=== PATIENT | female | born 1970 | race African-American/Black ===

== ENCOUNTER 2020-01-31 10:52 | Outpatient (CLI) | payer BC, SELFPAY ==
--- NOTE | 2020-01-31 10:55 | ECG_ITS ---
Measurements Intervals [place] Rate: 78 P: 38 UT: 186 QRS: 15 QRSD: 82 T: 6 QT: 358 QTc: 408 Interpretive Statements SINUS RHYTHM INFERIOR INFARCT, AGE INDETERMINATE BASELINE ARTIFACT- I, II, III, AVR, AVL, AVF ABNORMAL ECG Electronically Signed On 01-31-2020 11:37:59 CDT by Steven Dawson D.O.
[2020-01-31 11:45] LABS: Blood Urea Nitrogen 15 mg/dL (7-17); Calcium 9.4 mg/dL (8.4-10.2); Carbon Dioxide 26 mmol/L (22-30); Chloride 106 mmol/L (98-107); Estimated Glomerular Filt Rate > 60; Glucose 105 mg/dL (65-105); Potassium 3.3 mmol/L (3.4-5.0); Sodium 138 mmol/L (137-145)
== END 2020-01-31 10:53 | disposition home or self-care (01) ==
PROVIDERS: Anesthesiology; PCP Internal Medicine; Visit Provider Surgery Plastic and Reconstructive Surgery
DX: I10 Essential (primary) hypertension (principal); R94.31 Abnormal electrocardiogram [ECG] [EKG]
CPT/HCPCS: 36415; 80048; 93005

== ENCOUNTER 2020-02-09 01:39 | Day surgery (SDC) | payer BC, SELFPAY ==
[2020-01-29 13:37] VITALS: BMI 30.5
[2020-02-09] VITALS (9 sets, daily range): BP systolic 104–142; BP diastolic 77–91; PULSE 76–95; RESP 10–20; TEMP 36.6–36.7; O2SAT 98–100
--- NOTE | 2020-02-09 09:30 | WPDANESEPPF ---
Anes - Initial Pre Proc Eval Procedure: Operation Date: 02/09/20 10:30 Proposed Procedures p Bilateral Reduction Mammoplasty - Flaco Rodriguez MD Date/Time: 02/09/20 09:30 Surgeon: Flaco Rodriguez MD Pre Op Diagnosis: Macromastia Patient Data Age: 49 Gender: F Height: 5 ft 4 in Weight: 80.74 kg Allergies Allergy/AdvReac Type Severity Reaction Status Date / Time latex Allergy ITCHING, Verified 02/09/20 09:29 REDNESS Home Medications Medication Instructions Recorded Confirmed Type biotin 5 mg capsule 5 mg PO DAILY 11/06/19 02/07/20 History loratadine-pseudoephedrine ER 10 1 tablet PO DAILY 11/06/19 02/07/20 History mg-240 mg tablet,extended [id number] Collagen Capsules 2 caplet PO DAILY 01/29/20 02/07/20 History Elderberry Chew 1 ea PO DAILY 01/29/20 02/07/20 History amlodipine 5 mg PO DAILY 01/29/20 02/07/20 History ascorbic acid (vitamin C) [Vitamin 500 mg PO DAILY 01/29/20 02/07/20 History C] hydrochlorothiazide 12.5 mg PO DAILY 01/29/20 02/07/20 History 21-iron fu-folic acid 1 tablet PO DAILY 01/29/20 02/07/20 History [ Complete] tranexamic acid [Lysteda] 650 mg PO MONTHLY 01/29/20 02/07/20 History hydrocodone 5 mg-acetaminophen 325 1 tablet PO Q6H PRN #15 tablet 01/31/20 02/07/20 Rx mg tablet ondansetron HCl 8 mg tablet 8 mg PO Q8H PRN #30 tablet 01/31/20 02/07/20 Rx Patient hx anesthesia problems: none Family hx anesthesia problems: none PMFSH Surgical History Surgical History History of tubal ligation 1995 Social History Social History Smoking status: Never smoker Alcohol intake: current Anes - Eval Final PreProcedure Day of Procedure 02/09/20 09:30 Patient weight: obese Heart: regular rate and rhythm Lungs: clear to auscultation Airway: Mallampati scale class II Neurological: alert and oriented Last oral intake: >/= 8 hours ASA classification: II Emergent: no Anesthesia type and monitoring: general and standard monitoring Informed Consent: The patient's anesthetic plan and its attendant risks and benefits were discussed with the patient/family/POA. Questions were solicited and answers provided to the satisfaction of the patient/family/POA.
[2020-02-09] MEDS: LACTATED RINGERS 1,000 ML 30 ML IV CONT ×2 (09:40→13:02)
[2020-02-09 09:46] LABS: Urine Cotinine NEGATIVE
--- NOTE | 2020-02-09 10:05 | WPDHPUPDATE1 ---
History and Physical Update Update Date/Time: 02/09/20 10:05 History and Physical has been reviewed, including an updated exam of the patient. There are NO changes in the patient's condition. She understands that surgery can reduce her ability to respond to disease including Covid-19. This was outlined in great detail. She is willing to accept this risk and would like to proceed. Risks, benefits, and alternatives have been discussed and questions answered. Patient agrees to proceed with procedure.
[2020-02-09] MEDS: ceFAZolin 2 GM/D5W 50 ML 2 GM/50 ML BAG IVPB (10:35)
--- NOTE | 2020-02-09 12:49 | SUR.OPER ---
EBL:20CC
--- NOTE | 2020-02-09 13:56 | PM.PROC ---
Procedure Note - Detailed Date of procedure: 02/09/20 Pre-op diagnosis: Macromastia Post-op diagnosis: same Procedure performed: Bilateral breast reduction Description of procedure: She is here today for bilateral breast reduction. Previously and again today the risks, benefits, alternatives were discussed in extensive detail. I wanted her to be very realistic about the risks involved as well as expectations. We discussed aftercare and what to monitor for. She understands we can never guarantee final breast size and there will always be asymmetry. I was very upfront and honest about the risks of sensation change and even nipple loss (). Made sure answered all of her questions to her satisfaction today and consent was obtained. She was marked in the preoperative holding area with their verification. The patient was taken to the operating room placed supine on the operating table. Anesthesia was provided by anesthesiology. She was prepped and draped in a standard sterile fashion. A surgical time-out was taken. Stab incisions were made and I tumessed with a tumescent solution. I marked out the nipple-areolar complex at 42 mm. I then de-epithelialized the pedicle. The pedicle was well left well more than 2 cm in thickness. I then removed the inferior portion of the breast as well as the central keel to get shape based on preoperative planning. At this point copiously irrigated with saline solution and verified a strict hemostasis. I reapproximated the pillars using a 2-0 PDS as well as along the IMF. I tailor tacked the breast into place with marla. Suction lipectomy using 4mm basket cannula and S.A.F.E. technqiue was used on left breast for shape symmetry. She was placed in a sitting position. I verified the nipple-areolar complex position based on preoperative markings, intraoperative measurements, and observation which were in full agreement. This nipple-areolar complex was marked at 42 mm in size. I then placed supine and de-epithelialized this. Nipple-areolar complex was inset with 3-0 Monocryl. I closed the vertical incision with 3-0 Monocryl in the IMF with 3-0 stratafix. Then everything was closed using a running subcuticular 4-0 Monocryl followed by Steri-Strips. A dressing was placed followed by surgical bra. Patient was awoke and taken to PACU without difficulty. All instrument sponge counts were correct at the end of the case. Anesthesia: GLMA Surgeon: Flaco Rodriguez MD Estimated blood loss (mL): 20 Drains: No Packing: No Pathology: yes Complications: No immediate complications Condition: stable Disposition: PACU Findings: Volume removed: Right: 738 grams Left: 834 grams
--- NOTE | 2020-02-09 13:59 | SUR.PHASEI ---
1355: Called Dr. Rodriguez requesting d/c orders.
== END 2020-02-09 15:20 | disposition home or self-care (01) ==
PROVIDERS: Visit Provider Surgery Plastic and Reconstructive Surgery
PROC: 0HBV0ZZ Excision of Bilateral Breast, Open Approach (ICD-10-PCS; CPT 19318; principal; 2020-02-09 10:30)
DX: N62 Hypertrophy of breast (principal); I88.8 Other nonspecific lymphadenitis; N60.32 Fibrosclerosis of left breast; N60.31 Fibrosclerosis of right breast; N60.42 Mammary duct ectasia of left breast; N60.41 Mammary duct ectasia of right breast; N60.22 Fibroadenosis of left breast; N60.21 Fibroadenosis of right breast; N60.82 Other benign mammary dysplasias of left breast; E66.9 Obesity, unspecified; Z68.31 Body mass index [BMI] 31.0-31.9, adult; Z79.899 Other long term (current) drug therapy
CPT/HCPCS: 19318; 36415; 80307; 88305; A9270; J0131; J0171; J0690; J1100; J1170; J2250; J2405; J2704; J3010; J7120

== ENCOUNTER 2023-08-17 07:23 | Outpatient (CLI) | payer BC, SELFPAY ==
--- NOTE | 2023-08-17 | ECG_ITS ---
Measurements Intervals [place] Rate: 71 P: 45 DC: 196 QRS: 45 QRSD: 91 T: 37 QT: 352 QTc: 384 Interpretive Statements SINUS RHYTHM BORDERLINE T WAVE ABNORMALITY- ANTERIOR LEADS BASELINE WANDER- I, II BORDERLINE ECG COMPARED TO ECG 01/31/2020 11:26:58 NO SIGNIFICANT CHANGES Electronically Signed On 08-17-2023 8:34:34 CDT by Steven Dawson D.O.
[2023-08-17 08:57] LABS: Anion Gap 7 mmol/L (8-16); Blood Urea Nitrogen 9 mg/dL (7-17); Calcium 8.7 mg/dL (8.4-10.2); Carbon Dioxide 26 mmol/L (22-30); Chloride 107 mmol/L (98-107); Estimated Glomerular Filt Rate > 60; Glucose 111 mg/dL (65-110); Potassium 3.9 mmol/L (3.4-5.0); Sodium 140 mmol/L (137-145)
== END 2023-08-17 07:24 | disposition home or self-care (01) ==
LOC: ANHLAB 07:27
PROVIDERS: Visit Provider Otolaryngology
DX: I10 Essential (primary) hypertension (principal); R94.31 Abnormal electrocardiogram [ECG] [EKG]
CPT/HCPCS: 36415; 80048; 93005

== ENCOUNTER 2024-03-26 13:40 | Emergency (ER) | payer BC, SELFPAY ==
[2024-03-26 13:50] VITALS: BP 130/85; PULSE 78; RESP 16; TEMP 37.8; O2SAT 99
--- NOTE | 2024-03-26 14:07 | ED.EXTPRO ---
HPI - Extremity Problem General Chief complaint: Extremity Problem,Nontraumatic Stated complaint: Right Knee Pain Time Seen by Provider: 03/26/24 14:07 Source: patient, RN notes reviewed and old records reviewed Mode of arrival: ambulatory Limitations: no limitations History of Present Illness HPI Narrative: 53-year-old female presents to the [facility] with complaints of right knee pain and swelling for at least 4 weeks. Has been wearing a knee brace. Had a pain patch on. Has not been able to get in with primary care provider, left the area. Denies any injury Onset (ago): week(s) (At least 4 weeks) Related Data Home Medications Medication Instructions Recorded Confirmed biotin 5 mg capsule 5 mg PO DAILY 11/06/19 03/26/24 amlodipine 5 mg tablet 5 mg PO DAILY 01/29/20 03/26/24 ascorbic acid (vitamin C) 500 mg 500 mg PO DAILY 01/29/20 03/26/24 tablet (Vitamin C) vits,calcium 21-iron fum 1 tablet PO DAILY 01/29/20 03/26/24 14 mg iron-folic acid 400 mcg tablet ( Complete) clobetasol 0.05 % scalp solution See Rx Instructions .Route .COMPLEX 03/26/24 03/26/24 estradiol 0.1 mg/24 hr semiweekly See Rx Instructions .Route .COMPLEX 03/26/24 03/26/24 transdermal patch minoxidil 2.5 mg tablet 2.5 mg PO DAILY 03/26/24 03/26/24 spironolactone 50 mg tablet 50 mg PO DAILY 03/26/24 03/26/24 Allergies Allergy/AdvReac Type Severity Reaction Status Date / Time latex Allergy Intermediate ITCHING, Verified 03/26/24 13:47 REDNESS Review of Systems Review of Systems: All systems reviewed & are unremarkable except as noted in HPI and below Constitutional: Constitutional: Reports no additional constitutional complaints Eyes: Eyes: Reports no additional eye complaints ENT: Reports system reviewed and no additional complaints, except as documented Cardiovascular: Cardiovascular: Reports no additional cardiovascular complaints, Denies chest pain and Denies dyspnea Respiratory: Respiratory: Reports no additional respiratory complaints, Denies chest congestion, Denies cough and Denies dyspnea Gastrointestinal: Gastrointestinal: Reports no additional gastrointestinal complaints, Denies abdominal pain, Denies nausea and Denies vomiting Musculoskeletal: Musculoskeletal: Reports as per HPI, Reports arthralgias and Reports joint swelling Integumentary/Breasts: Skin/Breast: Reports system reviewed and no additional complaints, except as docu Neurologic: Reports system reviewed and no additional complaints, except as documented Psychiatric: Psychiatric: Reports no additional psychiatric complaints Allergic/Immunologic: Allergic/Immunologic: Reports no additional allergic/immunologic complaints PMF Surgical History Surgical History History of tubal ligation 1995 Social History Social History Smoking status: Never smoker Alcohol intake: current Alcohol use details: occasional Comments At the time of my signature, I reviewed and agree with the nursing past medical, surgical, social, and family history. There is no relevant family history pertinent to the patient complaint. Exam Const: General: cooperative, healthy appearing, comfortable, no acute distress, well developed, alert and well nourished Nutritional Appearance: well nourished Orientation/consciousness: patient oriented x3 Limitations: no limitations HENMT: Head: normal to inspection Ears: hearing grossly normal bilaterally and external ears normal Face/Nose/Sinus: Normal external nose present, Normal nares present, Normal nasal mucous membranes and turbinates present, normal facial exam and face symmetric Face and sinus: normal facial exam and face symmetric Eyes: General: appearance normal, both eyes and all related structures Alignment and Position: alignment normal Periorbital: periorbital findings normal Pupils: Equal, ro
== END 2024-03-26 14:28 | disposition home or self-care (01) ==
PROVIDERS: Emergency Provider Nurse Practitioner
DX: M25.462 Effusion, left knee (principal)
CPT/HCPCS: 99212; G0463

== ENCOUNTER 2024-06-17 07:24 | Outpatient (CLI) | payer BC, SELFPAY ==
--- NOTE | ~2024-06-17 | MR_ITS ---
MRI of the right knee Clinical history: Pain and swelling Technique: Coronal proton density and proton density-weighted images, sagittal proton-density and T2 fat-sat images, and axial proton-density fat-saturated images were acquired. Findings: Anterior and posterior cruciate ligaments are intact. Medial collateral ligament and the la teral collateral ligament complex are intact. Popliteus tendon is intact. Medial and lateral menisci are intact, without evidence of tear. There is subchondral cystic change or marrow edema involving the inferior patellar pole probable foca l high-grade chondromalacia at the inferior aspect of the patella. There is moderate chondromalacia a long the medial femoral condyle. Remaining bone marrow signals are essentially unremarkable. Extensor mechanism is intact. There is minimal joint effusion. No Laughlin's cyst. Impression: Subchondral cystic change is marrow edema involving inferior half of the patella, probably reactive d ue to focal chondromalacia at the inferior patella pole. Correlate for bone contusion or other direct impaction injury. Moderate chondromalacia of the medial femoral condyle. No ligamentous injury or meniscal tear. Reviewed, dictated and finalized at [facility]. Impression: Subchondral cystic change is marrow edema involving inferior half of the patell a, probably reactive due to focal chondromalacia at the inferior patella pole. Correlate for bone contusion or other direct impaction injury. Moderate chondromalacia of the medial femoral condyle. No ligamentous injury or meniscal tear.
== END 2024-06-17 07:25 ==
PROVIDERS: PCP Nurse Practitioner Family; Visit Provider Nurse Practitioner Family
DX: M25.561 Pain in right knee (principal); M79.89 Other specified soft tissue disorders
CPT/HCPCS: 73721

== ENCOUNTER 2024-07-21 08:19 | Outpatient (CLI) | payer BC, SELFPAY ==
[2024-07-21 14:39] LABS: Hematocrit 38.8 % (37.0-47.0); Hemoglobin 12.4 g/dL (12.0-15.0); Mean Corpuscular Hemoglobin 26.7 pg (26-34); Mean Corpuscular Volume 83.6 fl (80-100); Mean Platelet Volume 11.9 fl (7.4-10.4); Platelet Count Result 306 k/mm3 (150-375); Red Blood Count 4.64 M/mm3 (4.2-5.4); White Blood Count 6.6 K/mm3 (4.5-10.0)
[2024-07-21 15:18] LABS: Alanine Aminotransferase 25 U/L (6-35); Albumin Level 4.1 g/dL (3.5-5.1); Alkaline Phosphatase 71 U/L (38-126); Anion Gap 9 mmol/L (4-12); Aspartate Amino Transferase 73 U/L (14-36); Bilirubin,Total 0.3 mg/dL (0.2-1.3); Blood Urea Nitrogen 9 mg/dL (7-17); Calcium 8.6 mg/dL (8.4-10.2); Carbon Dioxide 25 mmol/L (22-30); Chloride 103 mmol/L (98-107); Cholesterol 167 mg/dL (0-200); Estimated Glomerular Filt Rate > 60; Glucose 99 mg/dL (65-110); HDL Direct 35 mg/dL; Potassium 3.8 mmol/L (3.4-5.0); Sodium 137 mmol/L (137-145); Triglycerides 74 mg/dL (<150)
[2024-07-21 15:29] LABS: LDL Cholesterol Direct 103 mg/dL
[2024-07-21 15:47] LABS: Thyroid Stimulating Hormone 0.821 uIU/mL (0.465-4.680)
[2024-07-21 15:56] LABS: Hemoglobin A1C 6.2 % (<5.7)
== END 2024-07-21 08:20 | disposition home or self-care (01) ==
LOC: ANHGOSHLAB 08:20
PROVIDERS: PCP Family Medicine; Visit Provider Family Medicine
DX: E66.9 Obesity, unspecified (principal); E78.5 Hyperlipidemia, unspecified; I10 Essential (primary) hypertension; R73.03 Prediabetes; Z79.899 Other long term (current) drug therapy
CPT/HCPCS: 36415; 80053; 80061; 83036; 84443; 85027

== ENCOUNTER 2024-08-18 00:42 | Day surgery (SDC) | payer BC, SELFPAY ==
[2024-08-11 10:01] VITALS: BMI 31.8
--- NOTE | 2024-08-11 10:02 | PC.NURSE ---
Report to the Outpatient Waiting Room, entrance under the green pavilion located off [facility], at time _0600_ on date _00-09-3525_. Planned Procedure Time: _0730_.? Time changes happen often and if your time is changed the preop area will call you the afternoon before. - You and your visitor will be asked to self-screen and do not enter if you have any COVID symptoms. Please call surgeon if you need to reschedule. - A mask is optional within the hospital at this time. Patients may have clear liquids (water, carbonated beverages, clear teas, apple juice) until 3 hours prior to surgery with a maximum of 20 ounces. - No food from midnight until time of surgery and no smoking Take only the following medications with a SIP of water on the morning of surgery: __Amlodipine DO NOT STOP ANY OF YOUR OTHER PRESCRIPTION MEDICATIONS PRIOR TO SURGERY EXCEPT THE FOLLOWING Medications to discontinue per physician ___All vitamins and supplements Date to take last [id number]___ Please no make-up, nail greenlandic, hairspray, perfume, deodorant, or body powder the day of surgery.? No jewelry (including any body piercings) or valuables the day of surgery, leave them at home.? Please take a shower or bath the night before, or the morning of, surgery with an antibacterial soap.? Wear comfortable, loose fitting clothing.? - Jewelry must be removed prior to entering the operating room.? Rings and piercings that are not removed may be cut off. - The hospital will not accept responsibility for valuables.? - Please leave all valuables, including medications, at home the day of surgery. If you are going home after surgery, a licensed crew car driver must drive you home.? - NO public transportation without another adult if you receive anesthesia. - We recommend that an adult stay with you for 24 hours following discharge. - We also recommend that you do not drive, make important decision, drink alcoholic beverages, or take any drugs that were not prescribed by your health care provider for at least 24 hours after your discharge time. Follow any additional instructions given to you from your surgeon. Telephone instructions given to __Tasha___and asked if any additional questions and then verbalized understanding. Patient advised to call surgeon office or pre surgery nurse liaison [phone] if any additional questions.
[2024-08-18] VITALS (9 sets, daily range): BP systolic 109–131; BP diastolic 61–86; PULSE 66–98; RESP 10–16; TEMP 36.6–36.9; O2SAT 95–100
[2024-08-18] MEDS: CELECOXIB 200 MG CAPSULE PO (06:34)
[2024-08-18] MEDS: ACETAMINOPHEN 500 MG TABLET 1000 MG PO (06:34)
[2024-08-18] MEDS: LACTATED RINGERS 1,000 ML 30 ML IV CONT (06:42)
--- NOTE | 2024-08-18 06:59 | WPDANESEPPF ---
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 Patient Data Age: 53 Gender: F Height: 1.6 m Weight: 83.1 kg Last Vital Signs Temp 97.8 F 08/18/24 06:54 Pulse 98 08/18/24 06:54 Resp 16 08/18/24 06:54 BP 131/86 08/18/24 06:54 Pulse Ox 99 08/18/24 06:54 O2 Del Method Room Air 08/18/24 06:54 Allergies Allergy/AdvReac Type Severity Reaction Status Date / Time latex Allergy Intermediate ITCHING, Verified 08/18/24 06:24 REDNESS Home Medications Medication Instructions Recorded Confirmed Type biotin 5 mg capsule 5 mg PO DAILY 11/06/19 08/11/24 History amlodipine 5 mg tablet 5 mg PO DAILY 01/29/20 08/18/24 History ascorbic acid (vitamin C) 500 mg 500 mg PO DAILY 01/29/20 08/11/24 History tablet (Vitamin C) vits,calcium 21-iron fum 1 tablet PO DAILY 01/29/20 08/11/24 History 14 mg iron-folic acid 400 mcg tablet ( Complete) clobetasol 0.05 % scalp solution See Rx Instructions .Route .COMPLEX 03/26/24 08/11/24 History estradiol 0.1 mg/24 hr semiweekly See Rx Instructions .Route .COMPLEX 03/26/24 08/11/24 History transdermal patch minoxidil 2.5 mg tablet 2.5 mg PO DAILY 03/26/24 08/11/24 History spironolactone 50 mg tablet 50 mg PO DAILY 03/26/24 08/11/24 History elderberry fruit 200 mg capsule 200 mg PO DAILY 08/11/24 08/11/24 History chlorhexidine gluconate 4 % 1 applic topical DAILY #237 mL 08/14/24 Rx topical liquid (Hibiclens) Patient hx anesthesia problems: none Family hx anesthesia problems: none Results Review: All pre-operative results and documents have been reviewed as part of the pre-operative evaluation. [facility] Past Medical History Medical History Bilateral shoulder pain Chronic back pain Chronic neck pain Macromastia Mastodynia Patellofemoral disorders, right knee Right knee pain Surgical History Surgical History H/O: hysterectomy History of cosmetic plastic surgery History of tubal ligation 1995 Family History Family History Unknown Asthma Hypertension Diabetes mellitus Cerebrovascular accident Social History Social History Smoking status: Never smoker Alcohol intake: current Alcohol use details: occasional Living arrangements: with family Occupation/Education: occupation Additional occupation/education comments: RN- [employer] Spiritual care concerns: No Anes - Eval Final PreProcedure Day of Procedure 08/18/24 06:59 Patient weight: obese Heart: regular rate and rhythm Lungs: clear to auscultation Airway: Mallampati scale class II Neurological: alert and oriented Last oral intake: >/= 8 hours ASA classification: II Emergent: no Anesthetic plan: proceed Anesthesia type and monitoring: general LMA and standard monitoring Results Review: All pre-operative results and documents have been reviewed as part of the pre-operative evaluation. HTN, obesity, preDM. Pt can walk 1-2 fos, no cp or sob. Informed Consent: The patient's anesthetic plan and its attendant risks and benefits were discussed with the patient/family/POA. Questions were solicited and answers provided to the satisfaction of the patient/family/POA.
--- NOTE | 2024-08-18 07:25 | WPDHPUPDATE1 ---
History and Physical Update Update Date/Time: 08/18/24 07:25 History and Physical has been reviewed, including an updated exam of the patient. There are NO changes in the patient's condition. Risks, benefits, and alternatives have been discussed and questions answered. Patient agrees to proceed with procedure.
[2024-08-18] MEDS: ceFAZolin 2 GM/D5W 50 ML 2 GM/50 ML BAG IVPB (07:35)
[2024-08-18] MEDS: BUPivacaine HCL 0.5% PF 30 ML VIAL INFILTRATE (08:20)
--- NOTE | 2024-08-18 08:29 | W.PM.PROC2 ---
Procedure Note - Detailed Date of Procedure 08/18/24 Pre-op Diagnosis right knee patella femoral chondromalasia Post-op Diagnosis Other (RIGHT MEDIAL MENISCUS TEAR, GRADE 3 CHONDRAL DEFECT PATELLA AND MEDIAL FEMORAL CONDYLE) Procedure Performed RIGHT KNEE SCOPE WITH PARTIAL MEDIAL MENISCECTOMY AND CHONDROPLASTY WITH MAJOR SYNOVECTOMY Surgeon Govind Figueroa MD Anesthesia General Description of Procedure PATIENT WAS TAKEN TO THE OR. THE RIGHT LEG WAS PREPPED AND DRAPED STERILE. TROCARS WERE PLACED IN THE USUAL FASHION. CAMERA WAS INTRODUCED. THERE WAS CHONDROMALACIA TO THE PATELLA. THERE WAS A NEAR FULL THICKNESS DEFECT ON THE MEDIAL FACET OF THE PATELLA AND ON THE ADJACENT MEDIAL FEMORAL CONDYLE WHICH HAD NEAR FULL CONTACT IN DEEP FLEXION. THERE WAS MINIMAL CHONDROMALACIA TO THE TROCHLEA. THERE WAS A LOT OF SYNOVITIS IN ALL COMPARTMENTS. THE MEDIAL COMPARTMENT SHOWED CHONDROMALACIA TO THE MEDIAL FEMORAL CONDYLE GRADE 2 TYPE. A SHAVER WAS USED TO PREFORM A CHONDROPLASTY. THERE WAS A SMALL COMPLEX MEDIAL MENISCUS UNDERSURFACE TEAR THAT WAS A NEAR FULL THICKNESS TEAR. THE TEAR WAS RESECTED WITH A BITER AND A SHAVER DOWN TO A SMOOTH BASE. THE ACL WAS INTACT. THE LATERAL MENISCUS WAS NOT TORN. THE LATERAL COMPARTMENT HAD MINIMAL CHONDROMALACIA. A SYNOVECTOMY WAS PREFORMED WELL. THE PATELLA AND ADJACENT MEDIAL FEMORAL CONDYLAR DEFECTS UNDERWENT CHONDROPLASTY. SYNOVECTOMY WAS PREFORMED IN THE SUPERIOR MEDIAL COMPARTMENT. THE WOUNDS WERE APPROXIMATED WITH 4.0 NYLON. STERILE DRESSING WAS APPLIED. PATIENT WAS EXTUBATED. Estimated Blood Loss 5 Complications No immediate complications Condition Stable Disposition PACU
--- NOTE | 2024-08-18 08:52 | SUR.PHASEI ---
Simple mask removed at 0850.
[2024-08-18] MEDS: oxyCODONE HCL (*CRX) 5 MG TAB IR PO (09:45)
== END 2024-08-18 10:40 | disposition home or self-care (01) ==
PROVIDERS: PCP Family Medicine; Visit Provider Orthopaedic Surgery
PROC: (CPT 29870; principal; 2024-08-18 07:30)
DX: S83.241A Other tear of medial meniscus, current injury, right knee, initial encounter (principal); M22.41 Chondromalacia patellae, right knee; M22.2X1 Patellofemoral disorders, right knee; T14.90XA Injury, unspecified, initial encounter
CPT/HCPCS: 29881; 29876; A9270; J0690; J1100; J2250; J2590; J2704; J3010; J7120

== ENCOUNTER 2024-12-22 08:21 | Outpatient (CLI) | payer BC, SELFPAY ==
--- OUTSIDE RECORDS SUMMARY | 2024-12-22 08:29 | XMS_ITS | Encounter Summary ---
Author Organization [facility] Address [address] [place] [address] Care Team Providers Care Director General Name Role Phone Unavailable Primary Care Provider Unavailabl e Encounter Details Date Type Department Care Team (Late st Contact Info) Description 10/21/2020 Lab Requisition [facility] [address] [place] [address] Graham Patricia MD [address] [place] [address] Social History Tobacco Use Types Packs/Day Years Used Date Smoking Tobacco: Never Assessed Comments Unknown Sex and Gender Information Value Date Recorded Sex Assigned at Not on file Legal Sex Female 1:02 PM CDT Gender Identity Not on file Sexual Orientation Not on file documented as of this encounter Plan of Treatment Not on file documented as of this encounter Procedures Procedure Name Priority Date/Time Associated Diagnosis Comments 2019 NOVEL CORONAVIRUS (COVID-19) PCR DETECTION Routine 10/21/2020 10:29 AM [employer] documented in this encounter Results * 2019 NOVEL CORONAVIRUS (COVID-19) PCR DETECTION (10/21/2020 10:29 AM [employer]) COVID-19 PCR NOT DETECTED Not Detected 10/22/20 4:05 AM [employer]PER[employer]OR [employer] [facility] PERFORMING LAB [facility] 10/22/2020 4:05 AM [employer] [facility] Upper Respiratory Collection / Unknown 10/21/2020 10:29 AM [employer] 10/21/2020 10:47 PM [employer] Narrative [facility] LABORATORY [facility] - 10/22/2020 4:05 AM [employer] This test has been authorized by the FDA under an Emergency Use Authorization for use by authorized laboratories.?? This test has been validated in accordance with the FDA's guidance regarding Coronavirus Disease-2019 testing.?? Optimum specimen types and timing for peak viral levels during infection have not been determined.?? A negative RT-PCR result does not rule out infection with the 2019-Novel Coronavirus. Graham Patricia MD MICROBIOLOGY - GENERAL ORDERA BLES Final Result Performing Organization Address City/State/[facility] Co de Phone Number [facility] LABORATORY SERVICES [facility]# [id number] [address] [place] [id number] documented in this encounter Visit Diagnoses Not on filedocumented in this encounter
--- OUTSIDE RECORDS SUMMARY | 2024-12-22 08:29 | XMS_ITS | Patient Health Summary ---
Author Organization [facility] Address [address] [place] [address] Care Team Providers Care Cloth Finisher Name Role Phone Unavailable Primary Care Provider Unavailabl e Note from [facility],non-owned Affiliates and Associated Physician Practices is amultiple site organization consisting of ambulatory clinics and hospital sitesin [place], [place], [place] and [place]. This disclosure is being madepursuant to the Care Everywhere program and may not contain all information available regarding this patient. Last updated 18.[facility] Allergies No known active allergies Medications * Be aware that medications may not be up to date on this document. Alwaysverify current medications with the patient. * Multiple Vitamin (MULTI VITAMIN DAILY PO) * cetirizine (ZYRTEC ALLERGY) 10 MG gel capsule Take 1 (one) capsule by mouth once daily * COLLAGEN-VITAMIN C PO * Cholecalciferol 125 MCG (5000 UT) Take 1 (one) tablet by mouth once daily * Ascorbic Acid 1000 MG Take 1 (one) tablet by mouth once daily * zinc gluconate 50 MG tablet Take 1 (one) tablet by mouth once daily * clobetasol (TEMOVATE) 0.05 % solution(Started 01/07/2022) * hydroquinone (LUSTRA; ELDOQUIN) 4 % cream(Started 12/17/2021) APPLY CREAM TOPICALLY AT BEDTIME TO DARK SPOTS FOR UP TO 3 MONTHS * spironolactone (ALDACTONE) 50 MG tablet(Started 01/08/2022) * tretinoin (RETIN-A) 0.025 % cream(Started 12/16/2021) APPLY CREAM TOPICALLY AT BEDTIME TO FACE * amLODIPine (NORVASC) 5 MG tablet(Started 01/12/2022) Take 1 (one) tablet by mouth once daily 3 refills by 01/12/2023 * triamcinolone acetonide (Kenalog) 0.1 % ointment(Started 08/23/2023) APPLY A THIN LAYER TO THE AFFECTED AREA(S) OF ECZEMA TWICE DAILY. NEVER TO FACE * minoxidil (Loniten) 2.5 MG tablet(Started 04/07/2024) Take 1 (one) tablet by mouth once daily * estradiol (Vivelle-Dot) 0.1 MG/24HR patch(Started 11/24/2024) APPLY 1 PATCH TOPICALLY EVERY 3 DAYS. Reasons: Night Sweats and Hot Flashes Associated with Menopause 12 refills by 11/24/2025 Ended Medications* estradiol (Vivelle-Dot) 0.1 MG/24HR patch(Started 11/06/2024) (Discontinued) APPLY 1 PATCH TOPICALLY EVERY 3 DAYS. Active Problems Problem Noted Date Diagnosed Date Chronic sinusitis 05/27/2023 11/12/2023 Acne 03/23/2023 11/12/2023 History of colonic polyps 12/10/20222022 Family history of diabetes mellitus 12/10/2022 11/12/2023 Screen for colon cancer 07/20/2022 Family history of colon cancer 06/23/2022 Pre-diabetes 01/12/2022 Vitamin D deficiency 01/18/2020 Class 1 obesity due to exces s calories with body mass index (BMI) of 32.0 to 32.9 in adult 05/20/2018 Atopic dermatitis 05/20/2018 Essential hypertension 05/20/2018 Resolved Problems Problem Noted Date Diagnosed Date Resolved Date Preop examination 06/02/2018 01/18/2020 Mood disorder 05/20/2018 01/18/2020 Ovarian cyst 05/20/2018 01/18/2020 Sickle cell trait 05/20/2018 01/18/2020 Immunizations * Covid Moderna primary monovalent 12+ yr 0.5mL(Given 09/26/2021, 01/24/2021, 12/27/2020) * INFLUENZA VACCINE(Given 08/22/2020, 09/05/2019) * TDAP (7yrs+)(Given 03/20/2021) * Zoster Hzv Vacc Recombinant Inj Im(Given 01/12/2022) Social History Tobacco Use Types Packs/Day Years Used Date Smoking Tobacco: Never Smokeless Tobacco: Never Tobacco Cessation:Counseling Given: Not Answered Comments:years ago Alcohol Use Standard Drinks/Week Comments Yes 3 (1 standard drink = 0.6 oz pur e alcohol) social PHQ-2 Answer Date Recorded Patient Health Questionnaire-2 Score 0 04/19/2024 Exercise Vital Sign Answer Date Recorde d On average, how many days pe r week do you engage in moderate to strenuous exercise (like a brisk walk)? 2 days 01/12/2022 On average, how many minutes do you engage in exercise at this level? 30 min 01/12/2022 Sex and Gender Information Value Date Recorded Sex Assigned at Female 09/30/2020 2:47 PM SEWING MACHINE ATTACHMENT TESTER Gender Identity Female 09/30/2020 2:46 PM SEWING MACHINE ATTACHMENT TESTER Sexual Orientation Straight 09/30/2020 2: 47 PM SEWING MACHINE ATTACHMENT TESTER Last Filed Vital Signs Vital Sign Reading Time Taken Comments Blood Pressure 144/86 11/24/2024 7:42 AM SEWING MACHINE ATTACHMENT TESTER Pulse 85 11/24/2024 7:42 AM SEWING MACHINE ATTACHMENT TESTER Temperature 36.4 ??C (97.5 ??F) 04/13/2023 1 2:05 PM CDT Respiratory Rate 17 04/13/2023 12:2 0 PM CDT Oxygen Saturation 77% 04/13/2023 12: 20 PM CDT Inhaled Oxygen Concentration - - Weight 84.3 kg (185 lb 12.8 oz) 11/24/2024 7:42 AM SEWING MACHINE ATTACHMENT TESTER Height 160 cm (5' 3 ) 11/24/2024 7:42 AM SEWING MACHINE ATTACHMENT TESTER Body Mass Index 32.91 11/24/2024 7:42 AM SEWING MACHINE ATTACHMENT TESTER Procedures * MAMMO BILAT SCREENING W JASIEL(Performed 09/22/2024) Performed for Encounter for screening mammogram for malignant neoplasm of breast * ESTRADIOL(Performed 11/12/2023) Performed for Well woman exam with routine gynecological exam, Menopausal symptoms * FSH(Performed 11/12/2023) Performed for Well woman exam with routine gynecological exam, Menopausal symptoms * LIPID PROFILE W LDL/HDL RATIO(Performed 11/12/2023) Performed for Well woman exam with routine gynecological exam, Hormone replacement therapy (HRT) * MAMMO BILAT SCREENING W JASIEL(Performed 09/21/2023) Performed for Encounter for screening mammogram for malignant neoplasm of breast * PATHOLOGY TISSUE EXAM (STL)(Performed 04/13/2023) Performed for Diagnosis deferred * COLONOSCOPY SCREEN(Performed 04/13/2023) * ENDOSCOPY, COLON, SCREENING(Performed 04/13/2023) * HEPATITIS SCREEN ACUTE(Performed 11/27/2022) Performed for Screening for venereal disease * TREPONEMA PALLIDUM POS REFLX RPR(Performed 11/27/2022) Performed for Screening for venereal disease * HIV-1 HIV-2 ANTIBODY + HIV P24 AG PANEL(Performed 11/27/2022) Performed for Screening for venereal disease * CHLAMYDIA + GC + TRICH DNA AMPL(Performed 11/26/2022) Performed for Screening for venereal disease * PATHOLOGY TISSUE EXAM (STL)(Performed 10/01/2022) Performed for Diagnosis unknown * COLONOSCOPY SCREEN(Performed 10/01/2022) * ENDOSCOPY, COLON, SCREENING(Performed 10/01/2022) Performed for Screen for colon cancer * MAMMO BILAT SCREENING W JASIEL(Performed 09/21/2022) Performed for Well woman exam * HEMOGLOBIN A1C(Performed 04/11/2022) Performed for Pre-diabetes * COMPREHENSIVE METABOLIC PANEL(Performed 02/19/2022) * MICROALB/CREAT RATIO URINE RANDOM PANEL(Performed 02/19/2022) * LIPID PROFILE(Performed 02/19/2022) * HEMOGLOBIN A1C - POINT OF CARE (AMB) SLU(Performed 01/12/2022) Performed for Pre-diabetes * MAMMO BILAT SCREENING W JASIEL(Performed 09/19/2021) Performed for Encounter for screening mammogram for breast cancer * LAB RESULTS ORDER(Performed 03/24/2021) * VITAMIN D 25-HYDROXY(Performed 03/21/2021) Performed for Vitamin D deficiency * HIV-1 HIV-2 ANTIBODY + HIV P24 AG PANEL(Performed 03/21/2021) Performed for Encounter for screening for HIV * MICROALB/CREAT RATIO URINE RANDOM PANEL(Performed 03/21/2021) Performed for Essential hypertension * LIPID PROFILE(Performed 03/21/2021) Performed for Essential hypertension * COMPREHENSIVE METABOLIC PANEL(Performed 03/21/2021) Performed for Essential hypertension * PATHOLOGY/CYTOLOGY REPORT ORDER(Performed 09/20/2020) * MAMMO BILAT SCREENING(Performed 09/14/2020) Performed for Encounter for screening mammogram for malignant neoplasm of breast * LAB RESULTS ORDER(Performed 09/14/2020) * PAP IG LB+CT+NG+TV+HPV APTIMA RFLX 16,18/45(Performed 09/06/2020) Performed for Screening for human papillomavirus, Screening for venereal disease, Possible exposureto STD * LAB RESULTS ORDER(Performed 09/06/2020) * HEMOGLOBIN A1C - POINT OF CARE (AMB)(Performed 01/18/2020) Performed for Elevated glucose * LIPID PROFILE W TCHOL/HDL(Performed 12/26/2019) Performed for Essential hypertension * T4 FREE(Performed 12/26/2019) Performed for Essential hypertension * TSH(Performed 12/26/2019) Performed for Essential hypertension * URINALYSIS REFLEX TO MICROSCOPIC NO CULTURE(Performed 12/26/2019) Performed for Essential hypertension * VITAMIN D 25-HYDROXY(Performed 12/26/2019) Performed for Vitamin D deficiency * COMPREHENSIVE METABOLIC PANEL(Performed 12/26/2019) Performed for Essential hypertension * CBC W AUTO DIFFERENTIAL(Performed 12/26/2019) Performed for Essential hypertension * PATHOLOGY SPECIMEN(Performed 12/07/2019) Performed for Abnormal uterine bleeding (AUB), Uterine leiomyoma, unspecified location * US PELVIS W TRANSVAG NON OB(Performed 10/31/2019) Performed for Menorrhagia with regular cycle * VAGINITIS PLUS (BV CA CT NG TRICH)(Performed 10/13/2019) Performed for Well woman exam with routine gynecological exam, Screening for venereal disease, Possible exposure to STD * MAMMO BILAT SCREENING(Performed 08/21/2019) Performed for Screening mammogram, encounter for * STREP A SCREEN - POINT OF CARE (AMB) STL(Performed 2018) Performed for Rhinosinusitis * CHLAMYDIA + GC + TRICH DNA AMPL(Performed 10/05/2018) Performed for Well woman exam, Screening examination for venereal disease * MAMMO BILAT SCREENING(Performed 08/10/2018) Performed for Visit for screening mammogram * XR CHEST 2VW(Performed 06/02/2018) Performed for Preop examination * CARDIAC EKG ORDER(Performed 06/02/2018) * LAB RESULTS ORDER(Performed 06/01/2018) * LAB RESULTS ORDER(Performed 06/01/2018) * ESTRADIOL(Performed 05/31/2018) Performed for Premenopause menorrhagia * FSH + LH PANEL(Performed 05/31/2018) Performed for Premenopause menorrhagia * HEPATITIS SCREEN ACUTE(Performed 05/31/2018) Performed for Mood disorder (HCC), Class 1 obesity without serious comorbidity with body mass index(BMI) of 30.0 to 30.9 in adult, unspecified obesity type * T4 FREE(Performed 05/31/2018) Performed for Mood disorder (HCC), Class 1 obesity without serious comorbidity with body mass index(BMI) of 30.0 to 30.9 in adult, unspecified obesity type * TSH(Performed 05/31/2018) Performed for Mood disorder (HCC), Class 1 obesity without serious comorbidity with body mass index(BMI) of 30.0 to 30.9 in adult, unspecified obesity type * VITAMIN B12 FOLATE PANEL(Performed 05/31/2018) Performed for Mood disorder (HCC), Class 1 obesity without serious comorbidity with body mass index(BMI) of 30.0 to 30.9 in adult, unspecified obesity type * VITAMIN D 25-HYDROXY(Performed 05/31/2018) Performed for Mood disorder (HCC), Class 1 obesity without serious comorbidity with body mass index(BMI) of 30.0 to 30.9 in adult, unspecified obesity type * HEMOGLOBIN A1C(Performed 05/31/2018) Performed for Mood disorder (HCC), Class 1 obesity without serious comorbidity with body mass index(BMI) of 30.0 to 30.9 in adult, unspecified obesity type * CBC W AUTO DIFFERENTIAL(Performed 05/31/2018) Performed for Mood disorder (HCC) * LIPID PROFILE(Performed 05/31/2018) Performed for Mood disorder (HCC), Class 1 obesity without serious comorbidity with body mass index(BMI) of 30.0 to 30.9 in adult, unspecified obesity type, Seasonal allergic rhinitis due to pollen * BASIC METABOLIC PANEL (CALCIUM TOTAL)(Performed 05/31/2018) Performed for Mood disorder (HCC) * MAMMO BILAT SCREENING(Performed 07/19/2017) Performed for Well female exam with routine gynecological exam * PAP THINPREP+HPV MRNA E6/E7 RFLX 16,18/45(Performed 07/19/2017) Performed for Well female exam with routine gynecological exam, Special screening examination for human papillomavirus (HPV) * PAP IG LB CT+NG VÍCTOR+CHAN HPV 16,18(Performed 07/16/2016) Performed for Encounter for gynecological examination without abnormal finding, Potential exposure to STD, Special screening examination for human papillomavirus (HPV) * MAMMO BILAT SCREENING(Performed 07/16/2016) Performed for Fibrocystic breast, unspecified laterality, H/O breast biopsy Results * Mammo Bilat Screening W Jasiel (09/22/2024 7:12 AM CDT) Only the most recent of4 resultswithin the time period is included. Anatomical Region Laterality Modality Breast Bilateral Mammography 09/22/2024 8:19 AM CDT Impressions 09/22/2024 8:20 AM CDT IMPRESSION: Annual screening mammography is recommended. OVERALL FINAL ASSESSMENT: ??BI-RADS Category 2: Benign. > Interpreting Provider: Ashli Beck MD on 09/22/2024 8:20 AM Narrative 09/22/2024 8:20 AM CDT EXAMINATION: BILATERAL DIGITAL SCREENING MAMMOGRAM AND BILATERAL BREAST TOMOSYNTHESIS HISTORY: Screening. COMPARISON: Serial examinations dating back to 09/14/2020 TECHNIQUE: ??BILATERAL digital breast tomosynthesis (DBT) and synthetic 2D digital mammogram images were obtained (bilateral craniocaudal and mediolateral oblique projections) including computer aided detection (CAD.) BREAST PARENCHYMAL COMPOSITION: Category B: There are scattered areas of fibroglandular density. MAMMOGRAM FINDINGS: There is no suspicious finding in either breast. There are stable expected findings of bilateral reduction mammoplasty. Overall, there has been no significant interval change. Monae Dozier APRN-GAUGE INSPECTOR MAMMO ORDERABLES * FSH (11/12/2023 8:15 AM SEWING MACHINE ATTACHMENT TESTER) FSH 7.24 mIU/mL [facility] ACCOUNT BILL Comment: ? FSH Reference Range Normal Menstruating Females ? Follicular Phase ?3.03 - 8.08 mIU /mL ? Mid-Cycles Phase ? 2.55 - 16.69 mIU /mL ? Luteal Phase ?1.38 - 5.47 mIU /mL Post Menopausal Females ? 26.72 - 133.41 mIU /mL Males ?0.95 - 11.95 mIU/ mL FASTING Blood BLOOD SPECIMEN / Unknown 11/12/2023 8:15 AM SEWING MACHINE ATTACHMENT TESTER 11/12/2023 Narrative Resulting Agency Comment Lab Testing performed at: [address] ??[facility] [phone] Monae Dozier HISTORY TEACHER-GAUGE INSPECTOR LAB - CHEMISTRY O RDERABLES [facility] ACCOUNT BILL [address] [place] [address] * ESTRADIOL (11/12/2023 8:15 AM SEWING MACHINE ATTACHMENT TESTER) Only the most recent of2 resultswithin the time period is included. Estradiol 208.0 pg/mL [facility] ACCOUNT BILL Comment: ?Adult Female ? Range ? Follicular phase ? 12.5 - 166.0 ? Ovulation phase ?85.8 - 498.0 ? Luteal phase ? 43.8 - 211.0 ? Postmenopausal ? <6.0 - ??54.7 ? 1st trimester ? 215.0 - >4300.0 Alma Rosa ECLIA methodology FASTING Blood BLOOD SPECIMEN / Unknown 11/12/2023 8:15 AM SEWING MACHINE ATTACHMENT TESTER 11/12/2023 Narrative Resulting Agency Comment Lab Testing performed at: [facility] [address] [place] [address] ??[facility] [phone] Monae Dozier HISTORY TEACHER-GAUGE INSPECTOR LAB - CHEMISTRY O RDERABLES [facility] ACCOUNT BILL [address] [place] [address] * (ABNORMAL) LIPID PROFILE W LDL/HDL RATIO (11/12/2023 8:14 AM SEWING MACHINE ATTACHMENT TESTER) Cholesterol 182 100 - 199 mg/dL [facility] ACCOUNT BILL Triglycerides 58 0 - 149 mg/dL [facility] ACCOUNT BILL HDL Cholesterol 47 >39 mg/dL [facility] ACCOUNT BILL VLDL Calculated 11 5 - 40 mg/dL [facility] ACCOUNT BILL LDL Calculated 124(H) 0 - 99 mg/dL [facility] ACCOUNT BILL Comment NOT AVAILABLE [facility] ACCOUNT BILL Comment:Result cannot be obt ained for this observation. LDL/HDL Ratio 2.6 0.0 - 3.2 ratio [facility] ACCOUNT BILL Comment: ? LDL/HDL Ratio ? Men ??Women ? 1/2 Avg.Risk ??1.0 ?1.5 ? Avg.Risk ??3.6 ?3.2 ?2X Avg.Risk ??6.2 ?5.0 ?3X Avg.Risk ??8.0 ?6.1 FASTING Blood BLOOD SPECIMEN / Unknown 11/12/2023 8:14 AM SEWING MACHINE ATTACHMENT TESTER 11/12/2023 Narrative Resulting Agency Comment Lab Testing performed at: [facility] [address] ??[facility] [phone] Monae Dozier HISTORY TEACHER-GAUGE INSPECTOR LAB - CHEMISTRY O RDERABLES [facility] ACCOUNT BILL [address] [place] [address] * PATHOLOGY TISSUE EXAM (STL) (04/13/2023 12:02 PM CDT) Only the most recent of2 resultswithin the time period is included. Case Report Surgical Pathology Report ? Case: [id number] ? Authorizing Provider: ??Marlene Flores MD ? Collected: ? 04/13/2023 12:02 PM ? Ordering Location: ? [facility] ?Received: ?04/13/2023 12:28 PM ? Pathologist: ? Kristin Marks MD ? Specimen: ?Polyp Hepatic Flexure, 1 polyp cold forceps ? 04/15/2023 9:53 AM CDT [facility] Final Diagnosis Colonic hepatic flexure polyp, biopsy: -- Polypoid fragments colonic mucosa -- No dysplasia or malignancy 04/15/2023 9:53 AM T [facility] Gross Description Received in formalin labeled with patient's name and hepatic flexure polyp biopsy is 1 fragment of whyte tissue measuring 3 mm. Submitted entirely in cassette A1. 04/15/2023 9:53 AM CDT [facility] Microscopic Description Level sections confirm the diagnosis. 04/15/2023 9:53 AM T [facility] Disclaimer All histochemical and/or immunohistochemical results are interpreted with controls that demonstrate appropriate staining reactions before reporting results. Note on use of immunocytochemistry reagents: This test was developed and its performance characteristic determined by [facility], Department of Laboratory Medicine. It has not been cleared or approved by the U.S. Food and Drug Administration (FDA). The FDA has determined that such clearance or approval is not necessary. The test is used for clinical purpose. It should not be regarded as investigational or for research. This laboratory is certified to perform high complexity testing. The performance characteristics of the IHC/MATT assays have been validated on formalin-fixed paraffin embedded tissues only. The assays have not been validated on decalcified tissues. Results should be interpreted with caution. 04/15/2023 9:53 AM CDT [facility] Embedded Images 04/15/2023 9:53 AM CDT [facility] Pathology/Cytolo gy POLYP / Unknown 04/13/2023 12:02 PM CDT 04/13/2023 12:28 PM CDT Marlene Flores MD LAB - PATHOLOGY/CYTO LOGY ORDERABLES [facility] [address] [place] [address] * ENDOSCOPY, COLON, SCREENING (04/13/2023 10:42 AM CDT) Report Endoscopy POC _ Patient Name: Tasha Leary ? Procedure Date: 04/13/2023 10:42 AM ? Date of : 1970 ?Admit Type: Outpatient Age: 52 ? Gender: Female Attending MD: Marlene Flores MD, [id number] _ Procedure: ? Colonoscopy Indications: ? High risk colon cancer surveillance: Personal history ? of colonic polyps, ; Reveiw of prior poylpectomy site Providers: ? Marlene Flroes MD (Doctor) Referring MD: ?Delores Bell MD (Referring MD) Medicines: ? Monitored Anesthesia Care Complications: ? No immediate complications. _ Estimated Blood Loss: ? Estimated blood loss: none. Procedure: ? Pre-Anesthesia Assessment: ? - Prior to the procedure, a History and Physical was ? performed, and patient medications and allergies were ? reviewed. The patient's tolerance of previous ? anesthesia was also reviewed. The risks and benefits ? of the procedure and the sedation options and risks ? were discussed with the patient. All questions were ? answered, and informed consent was obtained. Prior ? Anticoagulants: The patient has taken no anticoagulant ? or antiplatelet agents. After reviewing the risks and ? benefits, the patient was deemed in satisfactory ? condition to undergo the procedure. ? After I obtained informed consent, the scope was ? passed under direct vision. Throughout the procedure, ? the patient's blood pressure, pulse, and oxygen ? saturations were monitored continuously. The ? Colonoscope was introduced through the anus and ? advanced to the terminal ileum. The colonoscopy was ? performed without difficulty. The patient tolerated ? the procedure well. The quality of the bowel ? preparation was evaluated using the BBPS ([place] Bowel ? Preparation Scale) with scores of: Right Colon = 3, ? Transverse Colon = 3 and Left Colon = 3 (entire mucosa ? seen well with no residual staining, small fragments ? of stool or opaque liquid). The total BBPS score ? equals 9. ? Findings: ? The perianal and digital rectal examinations were normal. ? External and internal hemorrhoids were found during retroflexion. The ? hemorrhoids were small. ? A 3 mm polyp was found in the hepatic flexure. The polyp was sessile. ? The polyp was removed with a cold biopsy forceps. Resection and ? retrieval were complete. ? A tattoo was seen at the hepatic flexure. The tattoo site appeared ? normal. ? A small post polypectomy scar was found at the hepatic flexure. There ? was no evidence of the previous polyp. ? Multiple small-mouthed diverticula were found in the sigmoid colon. ? The exam was otherwise without abnormality on direct and retroflexion ? views. ? The terminal ileum appeared normal. _ ? Impression: ?- External and internal hemorrhoids. ? - One 3 mm polyp at the hepatic flexure, removed with ? a cold biopsy forceps. Resected and retrieved. ? - Post-polypectomy scar at the hepatic flexure. ? - Diverticulosis in the sigmoid colon. ? - The examination was otherwise normal on direct and ? retroflexion views. ? - The examined portion of the ileum was normal. Recommendation: ?- Await pathology results. ? - Repeat colonoscopy in 3 years for surveillance. ? Procedure Code(s): ? --- Professional --- ? 39990, Colonoscopy, flexible; with biopsy, single or multiple ? --- Technical --- ? 29769, Colonoscopy, flexible; with biopsy, single or multiple Diagnosis Code(s): ? --- Professional --- ? Z86.010, Personal history of colonic polyps ? K64.8, Other hemorrhoids ? D12.3, Benign neoplasm of transverse colon (hepatic flexure or splenic ? flexure) ? Z98.890, Other specified postprocedural states ? K57.30, Diverticulosis of large intestine without perforation or abscess ? without bleeding ? --- Technical --- ? Z86.010, Personal history of colonic polyps ? K64.8, Other hemorrhoids ? D12.3, Benign neoplasm of transverse colon (hepatic flexure or splenic ? flexure) ? Z98.890, Other specified postprocedural states ? K57.30, Diverticulosis of large intestine without perforation or abscess ? without bleeding CPT copyright 2020 [employer]. All rights reserved. The codes documented in this report are preliminary and upon grassroots organizer review may be revised to meet current compliance requirements. _ Marlene Flores MD 04/13/2023 12:07:15 PM Number of Addenda: 0 Note Initiated On: 04/13/2023 10:42 AM [facility] 04/13/2023 10:4 2 AM CDT Marlene Flores MD GI PROCEDURE ORDERAB LES [facility] [place] [address] * HIV-1 HIV-2 ANTIBODY + HIV P24 AG PANEL (11/27/2022 7:28 AM SEWING MACHINE ATTACHMENT TESTER) Only the most recent of2 resultswithin the time period is included. HIV Screen 4th Generation w Reflex NON-REACT FRANCISCA NON-REACT FRANCISCA [facility]ST Comment: HIV-1 antigen and HIV-1/HIV-2 antibodies were not detected. There is no laboratory evidence of HIV infection. PLEASE NOTE: This information has been disclosed to you from records whose confidentiality may be protected by state law. ??If your state requires such protection, then the state law prohibits you from making any further disclosure of the information without the specific written consent of the person to whom it pertains, or as otherwise permitted by law. A general authorization for the release of medical or other information is NOT sufficient for this purpose. ?? For additional information please refer to http://education.RUN/faq/FZD308 (This link is being provided for informational/ educational purposes only.) The performance of this assay has not been clinically validated in patients less than 2 years old. Test Performed at: [facility] [address] [address] [place], [place] ??[address] HORACE OLSEN DO,MPH Blood BLOOD SPECIMEN / Unknown 11/27/2022 7:28 AM SEWING MACHINE ATTACHMENT TESTER 11/27/2022 7:29 AM SEWING MACHINE ATTACHMENT TESTER Monae Dozier [facility] - CHEMISTRY O RDERABLES Performing Organization Address [facility] de Phone Number [employer] [address] [place] [address] * TREPONEMA PALLIDUM POS REFLX RPR (11/27/2022 7:28 AM SEWING MACHINE ATTACHMENT TESTER) Pathologist [facility] Treponema pallidum Antibody EIA NEGATIVE NEGATIVE [facility] Comment: No antibodies to T. pallidum (the agent causing syphilis) were detected in the specimen. This result, however, does not exclude very recent T. pallidum infection; testing of a second specimen, collected 2-4 weeks after this specimen, is recommended if the index of suspicion for recent infection is high. REPORT COMMENT: FASTING:YES Test Performed at: [facility] [address] ??[phone] ANANT CÁRDENAS MD Blood BLOOD SPECIMEN / Unknown 11/27/2022 7:28 AM SEWING MACHINE ATTACHMENT TESTER 11/27/2022 7:29 AM SEWING MACHINE ATTACHMENT TESTER Monae Dozier [facility] - SEROLOGY OR DERABLES Performing Organization Address [facility] Co de Phone Number [facility] [address] [place] [address] * HEPATITIS SCREEN ACUTE (11/27/2022 7:28 AM SEWING MACHINE ATTACHMENT TESTER) Only the most recent of2 resultswithin the time period is included. Hepatitis A Virus Antibody IgM NON-REACTI VE NON-REACT [facility] Comment: For additional information, please refer to http://RAREFORM.RUN/faq/MBB079 (This link is being provided for informational/ educational purposes only.) Hepatitis B Virus Surface Antigen NON-REACTI VE NON-REACT FR[facility] Hepatitis B Core Virus Antibody IgM NON-REACTI VE NON-REACT FR[facility] Hepatitis C Antibody NON-REACTI VE NON-REACT FRANCISCA [facility] Signal to Cut-Off 0.05 <1.00 [facility] Comment: HCV antibody was non-reactive. There is no laboratory evidence of HCV infection. In most cases, no further action is required. However, if recent HCV exposure is suspected, a test for HCV RNA (test code 77420) is suggested. For additional information please refer to http://[employer]ox Medical/faq/KVV96r0 (This link is being provided for informational/ educational purposes only.) Test Performed at: [facility] [address] [place], [place] ??[phone] HORACE OLSEN DO,MPH Blood BLOOD SPECIMEN / Unknown 11/27/2022 7:28 AM SEWING MACHINE ATTACHMENT TESTER 11/27/2022 7:29 AM SEWING MACHINE ATTACHMENT TESTER Monae Dozier HISTORY TEACHER-GAUGE INSPECTOR LAB - CHEMISTRY O RDERABLES [facility] [address] [place] [address] * CHLAMYDIA + GC + TRICH DNA AMPL (11/26/2022 11:35 AM SEWING MACHINE ATTACHMENT TESTER) Only the most recent of2 resultswithin the time period is included. Pathologist [facility] Chlamydia trachomatis RNA NOT DETECTED NOT DETECTED [facility] GC RNA NOT DETECTED NOT DETECTED [facility] Please Note [facility] Comment: The analytical performance characteristics of this assay, when used to test SurePath(TM) specimens have been determined by [employer]. The modifications have not been cleared or approved by the FDA. This assay has been validated pursuant to the CLIA regulations and is used for clinical purposes. For additional information, please refer to https://RAREFORM.RUN/faq/LIA260 (This link is being provided for information/ educational purposes only.) Trichomonas vaginalis RNA Qualitative NOT DETECTED NOT DETECTED [facility] Comment: For additional information, please refer to http://education.RUN/ faq/Trichomonastma (This link is being provided for informational/ educational purposes only.) Test Performed at: [facility] [address] [place] ??[phone] HORACE OLSEN DO,MPH Microbiology URINE / Unknown 11/26/2022 1 1:35 AM SEWING MACHINE ATTACHMENT TESTER 11/27/2022 4:00 AM SEWING MACHINE ATTACHMENT TESTER Monae Dozier HISTORY TEACHER-GAUGE INSPECTOR LAB - MICROBIOLOG Y ORDERABLES [facility] [address] [place] [address] * ENDOSCOPY, COLON, SCREENING (10/01/2022 9:38 AM SEWING MACHINE ATTACHMENT TESTER) Report Endoscopy POC _ Patient Name: Tasha Leary ? Procedure Date: 10/01/2022 9:38 AM ? Date of : 1970 ?Admit Type: Outpatient Age: 51 ? Gender: Female Attending MD: Marlene Flores MD ? _ Procedure: ? Colonoscopy Indications: ? Screening for colorectal malignant neoplasm Providers: ? Marlene Flores MD (Doctor) Referring MD: ?Delores Bell MD (Referring MD) Medicines: ? Monitored Anesthesia Care Complications: ? No immediate complications. _ Estimated Blood Loss: ? Estimated blood loss: none. Procedure: ? Pre-Anesthesia Assessment: ? - Prior to the procedure, a History and Physical was ? performed, and patient medications and allergies were ? reviewed. The patient's tolerance of previous ? anesthesia was also reviewed. The risks and benefits ? of the procedure and the sedation options and risks ? were discussed with the patient. All questions were ? answered, and informed consent was obtained. Prior ? Anticoagulants: The patient has taken no previous ? anticoagulant or antiplatelet agents. After reviewing ? the risks and benefits, the patient was deemed in ? satisfactory condition to undergo the procedure. ? After I obtained informed consent, the scope was ? passed under direct vision. Throughout the procedure, ? the patient's blood pressure, pulse, and oxygen ? saturations were monitored continuously. The ? Colonoscope was introduced through the anus and ? advanced to the terminal ileum. The colonoscopy was ? performed without difficulty. The patient tolerated ? the procedure well. The quality of the bowel ? preparation was evaluated using the BBPS ([place] Bowel ? Preparation Scale) with scores of: Right Colon = 2 ? (minor amount of residual staining, small fragments of ? stool and/or opaque liquid, but mucosa seen well), ? Transverse Colon = 2 (minor amount of residual ? staining, small fragments of stool and/or opaque ? liquid, but mucosa seen well) and Left Colon = 2 ? (minor amount of residual staining, small fragments of ? stool and/or opaque liquid, but mucosa seen well). The ? total BBPS score equals 6. The quality of the bowel ? preparation was fair. ? Findings: ? The perianal and digital rectal examinations were normal. ? A 12 mm polyp was found in the hepatic flexure. The polyp was ? pedunculated. On attempts to remove the polyp, the polyp was resected ? with the cold snare. Subsequently there was poor visualization of the ? polyp site due to technical difficulty and the location on a fold. Area ? was successfully injected with Lilly ink for tattooing. ? Multiple small and large-mouthed diverticula were found in the sigmoid ? colon. ? External and internal hemorrhoids were found during retroflexion. The ? hemorrhoids were small. _ ? Impression: ?- Preparation of the colon was fair. ? - One 12 mm polyp at the hepatic flexure. Resected. ? Injected. ? - Diverticulosis in the sigmoid colon. ? - External and internal hemorrhoids. Recommendation: ?- Await pathology results. ? - Repeat colonoscopy in 6 months to review the ? polypectomy site. ? Procedure Code(s): ? --- Professional --- ? 19903, Colonoscopy, flexible; with removal of tumor(s), polyp(s), or ? other lesion(s) by snare technique ? 53339, Colonoscopy, flexible; with directed submucosal injection(s), any ? substance ? --- Technical --- ? 61862, Colonoscopy, flexible; with removal of tumor(s), polyp(s), or ? other lesion(s) by snare technique ? 82202, Colonoscopy, flexible; with directed submucosal injection(s), any ? substance Diagnosis Code(s): ? --- Professional --- ? Z12.11, Encounter for screening for malignant neoplasm of colon ? K64.8, Other hemorrhoids ? K63.5, Polyp of colon ? K57.30, Diverticulosis of large intestine without perforation or abscess ? without bleeding ? --- Technical --- ? Z12.11, Encounter for screening for malignant neoplasm of colon ? K64.8, Other hemorrhoids ? K63.5, Polyp of colon ? K57.30, Diverticulosis of large intestine without perforation or abscess ? without bleeding CPT copyright 2019 [employer]. All rights reserved. The codes documented in this report are preliminary and upon grassroots organizer review may be revised to meet current compliance requirements. _ Marlene Flores MD 10/01/2022 11:24:46 AM Number of Addenda: 0 Note Initiated On: 10/01/2022 9:38 AM [facility] 10/01/2022 9:38 AM SEWING MACHINE ATTACHMENT TESTER Merry Vincent HISTORY TEACHER-GAUGE INSPECTOR GI PROCEDURE OR DERABLES Performing Organization Address City/State/[facility] Co de Phone Number [facility] [place] [address] * (ABNORMAL) HEMOGLOBIN A1C (04/11/2022 11:50 AM CDT) Only the most recent of2 resultswithin the time period is included. Hemoglobin A1c 6.2(H) <5.7 % of total Hgb [facility] Comment: For someone without known diabetes, a hemoglobin A1c value between 5.7% and 6.4% is consistent with prediabetes and should be confirmed with a follow-up test. For someone with known diabetes, a value <7% indicates that their diabetes is well controlled. A1c targets should be individualized based on duration of diabetes, age, comorbid conditions, and other considerations. This assay result is consistent with an increased risk of diabetes. Currently, no consensus exists regarding use of hemoglobin A1c for diagnosis of diabetes for children. REPORT COMMENT: FASTING:NO Test Performed at: [facility] ??[phone] MADINA JULIAN MD Blood BLOOD SPECIMEN / Unknown 04/11/2022 11:50 AM CDT 04/11/2022 11:51 AM CDT Delores Bell MD LAB - CANDY MAKER RY ORDERABLES Performing Organization Address [facility] de Phone Number [address] [address] * MICROALB/CREAT RATIO URINE RANDOM PANEL (02/19/2022 7:08 AM CDT) Only the most recent of2 resultswithin the time period is included. Creatinine Urine 64 20 - 275 mg/dL [facility] Microalbumin Urine <0.2 mg/dL [facility] Comment: Reference Range Not established Microalbumin/Creat inine Ratio NOTE <30 mcg/mg creat [facility] Comment: NOTE: The urine albumin value is less than 0.2 mg/dL therefore we are unable to calculate excretion and/or creatinine ratio. The ADA defines abnormalities in albumin excretion as follows: Albuminuria Category ?Result (mcg/mg creatinine) Normal to Mildly increased ?? <30 Moderately increased ? 30-299 Severely increased ? > OR = 300 The ADA recommends that at least two of three specimens collected within a 3-6 month period be abnormal before considering a patient to be within a diagnostic category. REPORT COMMENT: FASTING:YES Test Performed at: [facility] [address] [place], [place] ??[phone] HORACE OLSEN DO,MPH 02/19/2022 7:08 AM CDT 02/19/2022 7:10 AM CDT Delores Bell MD LAB - URINE C HEMISTRY ORDERABLES Performing Organization Address [facility] de Phone Number [address] [address] * (ABNORMAL) COMPREHENSIVE METABOLIC PANEL (02/19/2022 7:08 AM CDT) Only the most recent of3 resultswithin the time period is included. Glucose 112(H) 65 - 99 mg/dL [facility] Comment: ? Fasting reference interval For someone without known diabetes, a glucose value between 100 and 125 mg/dL is consistent with prediabetes and should be confirmed with a follow-up test. BUN 10 7 - 25 mg/dL [facility] Creatinine 0.76 0.50 - 1.05 mg/dL [facility] Comment: For patients >49 years of age, the reference limit for Creatinine is approximately 13% higher for people identified as -Slovak. eGFR by MDRD 91 > OR = 60 mL/min/1 .73m2 [facility] eGFR by MDRD 106 > OR = 60 mL/min/1 .73m2 [facility] BUN/Creatinine Ratio NOT APPLICABLE 6 - 22 (calc) [facility] Sodium 139 135 - 146 mmol/L [facility] Potassium 4.2 3.5 - 5.3 mmol/L [facility] Chloride 106 98 - 110 mmol/L [facility] CO2 25 20 - 32 mmol/L [facility] Calcium 9.1 8.6 - 10.4 mg/dL [facility] Protein Total 7.1 6.1 - 8.1 g/dL [facility] Albumin 3.9 3.6 - 5.1 g/dL [facility] Globulin Total 3.2 1.9 - 3.7 g/dL (calc) [facility] Albumin/Globulin Ratio 1.2 1.0 - 2.5 (calc) [facility] Bilirubin Total 0.1(L) 0.2 - 1.2 mg/dL [facility] Alkaline Phosphatase 75 37 - 153 U/L [facility] AST 25 10 - 35 U/L [facility] ALT 27 6 - 29 U/L [facility] Comment: REPORT COMMENT: FASTING:YES Test Performed at: [facility] [address] [facility] ??[phone] HORACE OLSEN DO,MPH 02/19/2022 7:08 AM CDT 02/19/2022 7:10 AM CDT Delores Bell MD LAB - CANDY MAKER RY ORDERABLES [facility] [address] [place] [address] * (ABNORMAL) LIPID PROFILE (02/19/2022 7:08 AM CDT) Only the most recent of3 resultswithin the time period is included. Cholesterol 181 <200 mg/dL [facility] HDL Cholesterol 39(L) > OR = 50 mg/dL [facility] Triglycerides 126 <150 mg/dL [facility] LDL Calculated 118(H) mg/dL (calc) [facility] Comment: Reference range: <100 Desirable range <100 mg/dL for primary prevention; ?? <70 mg/dL for patients with CHD or diabetic patients with > or = 2 CHD risk factors. LDL-C is now calculated using the Lara calculation, which is a validated novel method providing better accuracy than the Friedewald equation in the estimation of LDL-C. Mark GOFF et al. ZAKI. 2013;310(19): 5684-7827 (http://education.PoachIt/faq/TEP581) CHOL/HDLC RATIO 4.6 <5.0 (calc) [facility] Non HDL Cholesterol 142(H) <130 mg/dL (calc) [facility] Comment: For patients with diabetes plus 1 major ASCVD risk factor, treating to a non-HDL-C goal of <100 mg/dL (LDL-C of <70 mg/dL) is considered a therapeutic option. Test Performed at: [email or web address] ??[phone] HORACE OLSEN DO,MPH 02/19/2022 7:08 AM CDT 02/19/2022 7:10 AM CDT Delores Bell MD LAB - CANDY MAKER RY ORDERABLES [facility] [address] [place] [address] * HEMOGLOBIN A1C - POINT OF CARE (AMB) [facility] (01/12/2022) Pathologist [facility] Hemoglobin A1c POCT 6.0 % BLOOD SPECIMEN / Unknown 01/12/2022 Delores Bell MD LAB - POINT O F CARE ORDERABLES * LAB RESULTS ORDER (03/24/2021) Only the most recent of5 resultswithin the time period is included. Narrative 03/24/2021 Ordered by an unspecified provider. Scanned Document LAB - THERAPEUTIC DR CERRATO MONITORING ORDERABLES * (ABNORMAL) VITAMIN D 25-HYDROXY (03/21/2021 7:12 AM CDT) Only the most recent of3 resultswithin the time period is included. Vitamin D, 25 Hydroxy 25(L) 30 - 100 ng/mL [facility] Comment: Vitamin D Status ? 25-OH Vitamin D: Deficiency: ?<20 ng/mL Insufficiency: ? 20 - 29 ng/mL Optimal: ? > or = 30 ng/mL For 25-OH Vitamin D testing on patients on D2-supplementation and patients for whom quantitation of D2 and D3 fractions is required, the QuestAssureD(TM) 25-OH VIT D, (D2,D3), LC/MS/MS is recommended: order code 91307 (patients >2yrs). See Note 1 Note 1 For additional information, please refer to http://education.PoachIt/faq/BKR919 (This link is being provided for informational/ educational purposes only.) REPORT COMMENT: PT VARIFIED ALL PT INFO FASTING:YES Test Performed at: [facility] [place], [place] ??[address] HORACE OLSEN DO,MPH Blood BLOOD SPECIMEN / Unknown 03/21/2021 7:12 AM CDT 03/21/2021 7:14 AM CDT Delores Bell MD LAB - CANDY MAKER RY ORDERABLES [facility] [address] [place] [address] * PATHOLOGY/CYTOLOGY REPORT ORDER (09/20/2020) Provider Unknown LAB - PATHOLOGY/CYTO LOGY ORDERABLES * MAMMO SCREENING DIGITAL IMAGE BILAT G0202 (09/14/2020 10:01 AM CDT) Only the most recent of5 resultswithin the time period is included. Anatomical Region Laterality Modality Breast Bilateral Mammography 09/14/2020 12:4 0 PM CDT Narrative 09/14/2020 12:45 PM CDT DIGITAL BILATERAL SCREENING MAMMOGRAMS WITH CAD AND 3-D TOMOSYNTHESIS DATE: 09/14/2020 9:45 AM PREVIOUS EXAM DATE: 08/21/2019, 08/10/2018 INDICATION: Screening . Bilateral breast reduction in 2019 since last mammogram. TECHNIQUE: Bilateral craniocaudad (CC) and mediolateral oblique (MLO) views. Images were interpreted with the aid of CAD. 3-D tomosynthesis images were performed. TECHNOLOGIST: GERSON TISSUE DENSITY: Scattered fibroglandular densities FINDINGS: Post surgical alteration of reduction is noted. Small round mass with benign calcifications is seen right breast. There is otherwise no new microcalcification nor adenopathy nor worrisome finding. ASSESSMENT: BI-RADS Category 1, negative RECOMMENDATIONS: Continued annual screening mammography The above findings should be correlated with physical examination. A relatively nonspecific study should not preclude additional evaluation if suspicious findings are present clinically. An [employer] Facility. [facility] Breast [facility] utilizes [employer] as a reminder system to notify patients of their next recommended mammograms. *Reading Radiologist: Kristen Weber on 09/14/2020 at 12:45 PM Bessie Marin MD MAMMO ORDERABLES * PAP IG LB+CT+NG+TV+HPV APTIMA RFLX 16,18/45 (09/06/2020 3:14 PM CDT) Diagnosis [facility] ACCOUNT BILL Comment:NEGATIVE FOR INTRAEP ITHELIAL LESION OR MALIGNANCY. Specimen Adequacy [facility] ACCOUNT BILL Comment: Satisfactory for evaluation. ??Endocervical and/or squamous metaplastic cells (endocervical component) are present. Clinician Provided ICD10 [facility] ACCOUNT BILL Comment: Z11.51 Z11.3 Z20.2 Performed by [facility] ACCOUNT BILL Comment:Ron Cruz, Cyto technologist (ASCP) Comment . [facility] ACCOUNT BILL Note [facility] ACCOUNT BILL Comment: The Pap smear is a screening test designed to aid in the detection of premalignant and malignant conditions of the uterine cervix. ??It is not a diagnostic procedure and should not be used as the sole means of detecting cervical cancer. ??Both false-positive and false-negative reports do occur. ? . IGLBP CPT Code Automation [facility] ACCOUNT BILL Comment: This liquid based ThinPrep(R) pap test was screened with the use of an image guided system. Human papillomavirus Aptima Negative Negative [facility] ACCOUNT BILL Comment: This nucleic acid amplification test detects fourteen high-risk HPV types (16,18,31,33,35,39,45,51,52,56,58,59,66,68) without differentiation. Chlamydia trachomatis VÍCTOR Negative Negative [facility] ACCOUNT BILL GC VÍCTOR Negative Negative [facility] ACCOUNT BILL Trichomonas vaginalis by VÍCTOR Negative Negative [facility] ACCOUNT BILL ENTIRE ENDOCERVIX / Unknown 09/06/2020 3:14 PM CDT 09/06/2020 Narrative [facility] ACCOUNT BILL - 09/10/2020 1:08 PM CDT Source.............Cervix;Endocervix No. of containers..01 ThinPrep Vial Resulting Agency Comment Lab Testing performed at: [address] ??[facility] [id number] Bessie Marin MD LAB - PATHOLOGY/CYTO LOGY ORDERABLES [facility] ACCOUNT BILL [address] [place] [address] * HEMOGLOBIN A1C - POINT OF CARE (AMB) (01/18/2020) Hemoglobin A1c POCT 5.9 % Expiration Date 09/27/2021 Lot # [id number] QC Verified Yes Yes Blood BLOOD SPECIMEN / Unknown 01/18/2020 Rimma Ross MD LAB - POINT OF CARE ORDERABLES * (ABNORMAL) LIPID PROFILE W TCHOL/HDL (12/26/2019 8:09 AM SEWING MACHINE ATTACHMENT TESTER) Cholesterol 177 <200 mg/dL [facility] HDL Cholesterol 48(L) > OR = 50 mg/dL [facility] Triglycerides 116 <150 mg/dL [facility] LDL Calculated 108(H) mg/dL (calc) [facility] Comment: Reference range: <100 Desirable range <100 mg/dL for primary prevention; ?? <70 mg/dL for patients with CHD or diabetic patients with > or = 2 CHD risk factors. LDL-C is now calculated using the Lara calculation, which is a validated novel method providing better accuracy than the Friedewald equation in the estimation of LDL-C. Mark GOFF et al. ZAKI. 2013;310(19): 8377-0042 (http://education.[employer]imbus [employer]faq/EOO809) CHOL/HDLC RATIO 3.7 <5.0 (calc) [facility] Non HDL Cholesterol 129 <130 mg/dL (calc) [facility] Comment: For patients with diabetes plus 1 major ASCVD risk factor, treating to a non-HDL-C goal of <100 mg/dL (LDL-C of <70 mg/dL) is considered a therapeutic option. Test Performed at: [facility] [address] [place], [place] ??[phone] HORACE OLSEN DO,MPH Blood BLOOD SPECIMEN / Unknown 12/26/2019 8:09 AM SEWING MACHINE ATTACHMENT TESTER 12/26/2019 8:11 AM SEWING MACHINE ATTACHMENT TESTER Estelle Johnson HISTORY TEACHER-GAUGE INSPECTOR LAB - CHEMISTRY ORDERABLES [facility] [address] [place] [address] * URINALYSIS REFLEX TO MICROSCOPIC NO CULTURE (12/26/2019 8:09 AM SEWING MACHINE ATTACHMENT TESTER) Color UA YELLOW YELLOW [facility] Appearance CLEAR CLEAR [facility] Specific [place] UA 1.015 1.001 - 1.035 [facility] pH UA 7.0 5.0 - 8.0 [facility] Glucose UA NEGATIVE NEGATIVE [facility] Bilirubin UA NEGATIVE NEGATIVE [facility] Ketone UA NEGATIVE NEGATIVE [facility] Blood UA NEGATIVE NEGATIVE [facility] Protein UA NEGATIVE NEGATIVE [facility] Nitrite UA NEGATIVE NEGATIVE [facility] Leukocyte UA NEGATIVE NEGATIVE [facility] Comment: REPORT COMMENT: AN UPDATE OR CORRECTION HAS BEEN MADE TO NAME Test Performed at: [facility] [address] [place], [place] ??[address] HORACE OLSEN DO,MPH Urine URINE SPECIMEN OBTAINED BY CLEAN CATCH PROCEDURE / Unknown 12/26/2019 8:09 AM SEWING MACHINE ATTACHMENT TESTER 12/26/2019 8:11 AM SEWING MACHINE ATTACHMENT TESTER Estelle Johnson HISTORY TEACHER-GAUGE INSPECTOR LAB - URINALYSI S ORDERABLES [facility] [address] [place] [address] * (ABNORMAL) CBC WITH DIFFERENTIAL (12/26/2019 8:09 AM SEWING MACHINE ATTACHMENT TESTER) Only the most recent of2 resultswithin the time period is included. White Blood Cell Count 7.4 3.8 - 10.8 Thousand/u L [facility] RBC 4.89 3.80 - 5.10 Million/uL [facility] Hemoglobin 12.5 11.7 - 15.5 g/dL [facility] Hematocrit 39.4 35.0 - 45.0 % [facility] MCV 80.6 80.0 - 100.0 fL [facility] MCH 25.6(L) 27.0 - 33.0 pg [facility] MCHC 31.7(L) 32.0 - 36.0 g/dL [facility] RDW 14.7 11.0 - 15.0 % [facility] Platelet Count 317 140 - 400 Thousand/u L [facility] MPV 12.3 7.5 - 12.5 fL [facility] Neutrophil Absolute 5491 1500 - 7800 cells/uL [facility] Lymphocytes Absolute 1428 850 - 3900 cells/uL [facility] Absolute Monocytes 407 200 - 950 cells/uL [facility] Eosinophils Absolute 67 15 - 500 cells/uL [facility] Basophils Absolute 7 0 - 200 cells/uL [facility] Granulocytes % 74.2 % [facility] Lymphocytes % 19.3 % [facility] Monocytes % 5.5 % [facility] Eosinophils % 0.9 % [facility] Basophils % 0.1 % [facility] Comment: Test Performed at: [facility] [address] [place], [place] ??[phone] HORACE OLSEN DO,MPH Blood BLOOD SPECIMEN / Unknown 12/26/2019 8:09 AM SEWING MACHINE ATTACHMENT TESTER 12/26/2019 8:11 AM SEWING MACHINE ATTACHMENT TESTER Estelleisabelle Clarktrang HACKETTGAUGE INSPECTOR LAB - HEMATOLOG Y ORDERABLES Performing Organization Address [facility] de Phone Number [facility] [address] [place] [id number] * TSH (12/26/2019 8:09 AM SEWING MACHINE ATTACHMENT TESTER) Only the most recent of2 resultswithin the time period is included. Pathologist [facility] TSH 0.86 mIU/L [facility] Comment: ?Reference Range ?> or = 20 Years ??0.40-4.50 ? Ranges ?First trimester ?0.26-2.66 ?Second trimester ?? 0.55-2.73 ?Third trimester ?0.43-2.91 Test Performed at: [employer] [place], [place] ??[address] HORACE OLSEN DO,MPH Blood BLOOD SPECIMEN / Unknown 12/26/2019 8:09 AM SEWING MACHINE ATTACHMENT TESTER 12/26/2019 8:11 AM SEWING MACHINE ATTACHMENT TESTER Estelle Johnson [facility] LAB - CHEMISTRY ORDERABLES Performing Organization Address [facility] de Phone Number [facility] [address] [place] [address] * T4 FREE (12/26/2019 8:09 AM SEWING MACHINE ATTACHMENT TESTER) Only the most recent of2 resultswithin the time period is included. Pathologist [facility] T4 Free 1.0 0.8 - 1.8 ng/dL [facility] Comment: Test Performed at: [email or web address] [id number] [place] [address] ??[phone] HORACE OLSEN DO,MPH Blood BLOOD SPECIMEN / Unknown 12/26/2019 8:09 AM SEWING MACHINE ATTACHMENT TESTER 12/26/2019 8:11 AM SEWING MACHINE ATTACHMENT TESTER Estelle Johnson HISTORY TEACHER-GAUGE INSPECTOR LAB - CHEMISTRY ORDERABLES [facility] [address] [place] [address] * PATHOLOGY SPECIMEN (12/07/2019 3:59 PM SEWING MACHINE ATTACHMENT TESTER) Material [facility] INSURANCE BILL Comment: Material submitted: ?. endometrium - ENDOMETRIAL BIOPSY F Diagnosis [facility] INSURANCE BILL Comment: Diagnosis: ENDOMETRIAL BIOPSY: SECRETORY ENDOMETRIUM, DAY 21-22, POST-OVULATORY DAY 7-8. FIBROCONNECTIVE AND SMOOTH MUSCLE TISSUE FRAGMENTS SUGGESTIVE OF POSSIBLE LEIOMYOMA. SEE COMMENT. NO HYPERPLASIA, ATYPIA, CARCINOMA OR ENDOMETRITIS. . [facility] ??12/12/2019 ??[address] Local [facility] Comment: [facility] INSURANCE BILL Comment: CLINICAL RADIOGRAPHIC CORRELATION IS REQUIRED TO DETERMINE THE PRESENCE OR ABSENCE OF A SUBMUCOSAL LEIOMYOMA (UTERINE FIBROID) OR WHETHER THIS TISSUE REPRESENTS A VIGOROUS CURRETTING. Signed [facility] INSURANCE BILL Comment: Electronically signed: ? . Fam Hernandez MD, Pathologist Grossed [facility] INSURANCE BILL Comment: Gross description: ? . 1 Container, formalin-filled, labeled with patient identification. ENDOMETRIAL BIOPSY: MULTIPLE FRAGMENT(S) OF SOFT MATERIAL, BLOOD, AND MUCUS MEASURING 3.0 X 2.0 X 0.1 CM IN AGGREGATE. FILTERED AND SUBMITTED IN CASSETTE(S) A1-A2. SPE/CYS ??2019 ??[id number] Local Pathologist Provided ICD10 [facility] INSURANCE BILL Comment: Pathologist provided ICD-10: D25.0 CPT [facility] INSURANCE BILL Comment: CPT ?. [id number] Pathology/Cytolo gy OPEN BIOPSY OF ENDOMETRIUM / Unknown 12/07/2019 3:59 PM SEWING MACHINE ATTACHMENT TESTER 2019 Narrative Resulting Agency Comment Lab Testing performed at: [facility] [address] [place] [address] ?? [facility] [id number] Bessie Marin MD LAB - PATHOLOGY/CYTO LOGY ORDERABLES [facility] INSURANCE BILL [address] [place] [address] * US PELVIS W TRANSVAG NON OB (10/31/2019 7:51 AM SEWING MACHINE ATTACHMENT TESTER) Anatomical Region Laterality Modality Pelvis Ultrasound 10/31/2019 10:0 5 AM SEWING MACHINE ATTACHMENT TESTER Impressions 10/31/2019 11:07 AM SEWING MACHINE ATTACHMENT TESTER Fibroid uterus. Mildly thickened endometrial stripe. Edited by Cee Gamble on 10/31/2019 10:16 AM Reading Radiologist: Kristen Weber MD on 10/31/2019 at 11:07 AM Narrative 10/31/2019 11:07 AM SEWING MACHINE ATTACHMENT TESTER ULTRASOUND PELVIS, TRANSABDOMINAL AND TRANSVAGINAL INDICATION: Menorrhagia, irregular cycles Grayscale ultrasound of the pelvis is performed transabdominally and transvaginally. The uterus is enlarged measuring 12.2 x 4.0 x 8.5 cm. Multiple myomas are seen. At least four discrete fibroids are identified. The largest is to the right measuring 2.1 x 1.6 x 1.8 cm, posterior mid-body. Second is to the left, anterior mid-body measuring 2.0 x 1.9 x 1.2 cm. An additional fibroid to the left measures up to 1.1 cm and a fourth to the left measures 1.3 cm. The endometrial stripe measures 1.1 cm. Endometrial stripe is slightly irregular. Echogenic foci are seen in the cervix which may be small subcentimeter calcifications. Ovarian cyst is noted on the left predominantly simple measuring 2.0 cm. Left ovary itself measures 3.2 x 2.9 x 2.7 cm. Right ovary measures 2.7 x 1.3 x 1.5 cm. There is normal color flow, color spectral Doppler ultrasound, normal arterial and venous waveforms documented to each ovary. Procedure Note Kristen Weber MD - 10/31/2019 ULTRASOUND PELVIS, TRANSABDOMINAL AND TRANSVAGINAL INDICATION: Menorrhagia, irregular cycles Grayscale ultrasound of the pelvis is performed transabdominally and transvaginally. The uterus is enlarged measuring 12.2 x 4.0 x 8.5 cm. Multiple myomas are seen. At least four discrete fibroids are identified. The largest is to the right measuring 2.1 x 1.6 x 1.8 cm, posterior mid-body. Second is to the left, anterior mid-body measuring 2.0 x 1.9 x 1.2 cm. An additional fibroid to the left measures up to 1.1 cm and a fourth to the left measures 1.3 cm. The endometrial stripe measures 1.1 cm. Endometrial stripe is slightly irregular. Echogenic foci are seen in the cervix which may be small subcentimeter calcifications. Ovarian cyst is noted on the left predominantly simple measuring 2.0 cm. Left ovary itself measures 3.2 x 2.9 x 2.7 cm. Right ovary measures 2.7 x 1.3 x 1.5 cm. There is normal color flow, color spectral Doppler ultrasound, normal arterial and venous waveforms documented to each ovary. IMPRESSION Fibroid uterus. Mildly thickened endometrial stripe. Edited by Cee Gamble on 10/31/2019 10:16 AM Reading Radiologist: Kristen Weber MD on 10/31/2019 at 11:07 AM Bessie Marin MD ORDERABLES * VAGINITIS PLUS (BV CA CT NG TRICH) (10/13/2019 11:08 AM SEWING MACHINE ATTACHMENT TESTER) Atopobium vaginae Low - 0 Score [facility] ACCOUNT BILL BVAB 2 Low - 0 Score [facility] ACCOUNT BILL Megashaera Low - 0 Score [facility] ACCOUNT BILL Comment: Calculate total score by adding the 3 individual bacterial vaginosis (BV) marker scores together. ??Total score is interpreted as follows: Total score 0-1: Indicates the absence of BV. Total score ?? 2: Indeterminate for BV. Additional clinical ? data should be evaluated to establish a ? diagnosis. Total score 3-6: Indicates the presence of BV. ? . This test was developed and its performance characteristics determined by [facility]. ??It has not been cleared or approved by the Food and Drug Administration. ??The FDA has determined that such clearance or approval is not necessary. Tanika albicans VÍCTOR Negative Negative [facility] ACCOUNT BILL Tanika glabrata VÍCTOR Negative Negative [facility] ACCOUNT BILL Comment: This test was developed and its performance characteristics determined by [facility]. ??It has not been cleared or approved by the Food and Drug Administration. ??The FDA has determined that such clearance or approval is not necessary. Trichomonas vaginalis by VÍCTOR Negative Negative [facility] ACCOUNT BILL Chlamydia Trachomatis VÍCTOR Negative Negative [facility] ACCOUNT BILL GC VÍCTOR Negative Negative [facility] ACCOUNT BILL Microbiology ENTIRE VAGINA / Unknown 10/13/2019 11:08 AM SEWING MACHINE ATTACHMENT TESTER 10/13/2019 Narrative Resulting Agency Comment Lab Testing performed at: [facility] [address] ??[facility] [id number] Bessie Marin MD LAB - MICROBIOLOGY O RDERABLOSSOM [facility] ACCOUNT BILL [address] [place] [address] * STREP A SCREEN - POINT OF CARE (AMB) STL (2018 12:35 PM SEWING MACHINE ATTACHMENT TESTER) Strep A Rapid POCT Negative Negative Strep A Internal Control Present Lot # [id number] Expiration Date 03/21/20 Throat ENTIRE THROAT (SURFACE REGION OF NECK) / Unknown 2018 12:35 PM SEWING MACHINE ATTACHMENT TESTER Raquel Adam HISTORY TEACHER-GAUGE INSPECTOR LAB - POINT OF CA RE ORDERABLES * XR CHEST 2VW (06/02/2018 11:36 AM CDT) Anatomical Region Laterality Modality Chest Radiographic Irma ging 06/02/2018 11:4 0 AM CDT Impressions 06/02/2018 11:41 AM CDT No acute disease. Reading Radiologist: Anthony Napier MD on 06/02/2018 at 11:41 AM Narrative 06/02/2018 11:41 AM CDT Chest Two Views History: Occasional cough. Preprocedural examination. COMPARISON: None. FINDINGS:. The lungs are clear without airspace consolidation or pulmonary edema. No pneumothorax or pleural effusion is seen. The cardiomediastinal contour is unremarkable. Procedure Note Anthony Napier MD - 06/02/2018 Chest Two Views History: Occasional cough. Preprocedural examination. COMPARISON: None. FINDINGS:. The lungs are clear without airspace consolidation or pulmonary edema. No pneumothorax or pleural effusion is seen. The cardiomediastinal contour is unremarkable. IMPRESSION No acute disease. Reading Radiologist: Anthony Napier MD on 06/02/2018 at 11:41 AM Carla Veloz MD DIAGNOSTIC IMAGING ORDERABLES * CARDIAC EKG ORDER (06/02/2018) Carla Veloz MD CARDIAC SERVICES OR DERABLES * FSH + LH PANEL (05/31/2018 8:32 AM CDT) FSH 3.0 mIU/mL [facility] Comment: ?Reference Range ? Follicular Phase ? 2.5-10.2 ? Mid-cycle Peak ? 3.1-17.7 ? Luteal Phase ? 1.5- 9.1 ? Postmenopausal ? 23.0-116.3 ? LH 2.0 mIU/mL [facility] Comment: ?Reference Range Follicular Phase ??1.9-12.5 Mid-Cycle Peak ?8.7-76.3 Luteal Phase ?0.5-16.9 Postmenopausal ?10.0-54.7 Test Performed at: [facility] ??[id number] HORACE OLSEN DO,MPH Blood BLOOD SPECIMEN / Unknown 05/31/2018 8:32 AM CDT 05/31/2018 8:34 AM CDT Carla Veloz MD LAB - CHEMISTRY ORD ERABLES [facility] [address] [place] [address] * (ABNORMAL) BASIC METABOLIC PANEL (CALCIUM TOTAL) (05/31/2018 8:26 AM CDT) Glucose 101(H) 65 - 99 mg/dL [facility] Comment: ? Fasting reference interval For someone without known diabetes, a glucose value between 100 and 125 mg/dL is consistent with prediabetes and should be confirmed with a follow-up test. BUN 13 7 - 25 mg/dL [facility] Creatinine 0.80 0.50 - 1.10 mg/dL [facility] eGFR by MDRD 88 > OR = 60 mL/min/1. 73m2 [facility] eGFR by MDRD 102 > OR = 60 mL/min/1. 73m2 [facility] BUN/Creatinine Ratio NOT APPLICABLE (calc) [facility] Sodium 139 135 - 146 mmol/L [facility] Potassium 4.3 3.5 - 5.3 mmol/L [facility] Chloride 107 98 - 110 mmol/L [facility] CO2 22 20 - 31 mmol/L [facility] Calcium 9.5 8.6 - 10.2 mg/dL [facility] Comment: Test Performed at: [facility] [address] [place], [place] ??[address] HORACE OLSEN DO,MPH Blood BLOOD SPECIMEN / Unknown 05/31/2018 8:26 AM CDT 05/31/2018 8:28 AM CDT Carla Veloz MD LAB - CHEMISTRY ORD OFERTALDIABLES Performing Organization Address [facility] de Phone Number [facility] [address] [place] [address] * VITAMIN B12 FOLATE PANEL (05/31/2018 8:26 AM CDT) Vitamin B12 730 200 - 1100 pg/mL [facility] Folate 16.7 ng/mL [facility] Comment: ? Reference Range ? Low: ? <3.4 ? Borderline: ?3.4-5.4 ? Normal: ?>5.4 Test Performed at: [facility] [address] [place], [place] ??[address] HORACE OLSEN DO,MPH Blood BLOOD SPECIMEN / Unknown 05/31/2018 8:26 AM CDT 05/31/2018 8:28 AM CDT Carla Veloz MD LAB - CHEMISTRY ORD ERABLOSSOM Performing Organization Address [facility] de Phone Number [facility] [address] [place] [address] * PAP THINPREP+HPV MRNA E6/E7 RFLX 16,18/45 (07/19/2017 1:01 PM CDT) Clinical Information [facility] Comment:Information not prov ided LMP [facility] Comment:INFORMATION NOT PROV IDED Previous Pap [facility] Comment:INFORMATION NOT PROV IDED Prev. BX [facility] Comment:INFORMATION NOT PROV IDED Source [facility] Comment:[facility] Statement of Adequacy [facility] Comment: Satisfactory for evaluation. Endocervical/transformation zone component present. Age and/or menstrual status not provided Interpretation/Resu lt [facility] Comment:Negative for intraep ithelial lesion or malignancy. Comment [facility] Comment: This Pap test has been evaluated with computer assisted technology. Training Systems Officer [facility] Comment: PCM, CT(ASCP) CT screening location: [address] [place] [address] Human papillomavirus mRNA E6 E7 Not Detected Not Detected [facility] Comment: This test was performed using the APTIMA HPV Assay ([employer] ? This assay detects E6/E7 viral messenger RNA (mRNA) from 14 high-risk HPV types (16,18,31,33,35,39,45,51,52,56,58,59,66,68). Test Performed at: [facility] [address] ??[id number] MADINA JULIAN MD ENTIRE ENDOCERVIX / Unknown 07/19/2017 1:01 PM CDT 07/20/2017 5:12 AM CDT Monae Dozier APRN-GAUGE INSPECTOR LAB - PATHOLOGY/C YTOLOGY ORDERABLES [place] [address] [place] [address] * (ABNORMAL) PAP IG CT+NG VÍCTOR+CHAN HPV 16/18 (PO REF) (07/16/2016 5:15 PM CDT) Diagnosis [facility] INSURANCE BILL Comment:NEGATIVE FOR INTRAEP ITHELIAL LESION AND MALIGNANCY. Specimen Adequacy [facility] INSURANCE BILL Comment: Satisfactory for evaluation. ??Endocervical and/or squamous metaplastic cells (endocervical component) are present. Clinician Provided ICD10 [facility] INSURANCE BILL Comment: Z01.419 Z20.2 N60.19 Z98.89 N92.0 Z11.51 Performed by [facility] INSURANCE BILL Comment:Erlinda Heintejaison hnologist (ASCP) Comment . [facility] INSURANCE BILL Note [facility] INSURANCE BILL Comment: The Pap smear is a screening test designed to aid in the detection of premalignant and malignant conditions of the uterine cervix. ??It is not a diagnostic procedure and should not be used as the sole means of detecting cervical cancer. ??Both false-positive and false-negative reports do occur. ? . IGLBP CPT Code Automation [facility] INSURANCE BILL Comment: This liquid based ThinPrep(R) pap test was screened with the use of an image guided system. Human papillomavirus Other hr types Positive(A) Negative [facility] INSURANCE BILL Human papillomavirus 16 Negative Negative [facility] INSURANCE BILL Human papillomavirus 18 Negative Negative [facility] INSURANCE BILL Comment: This test detects fourteen high-risk HPV types: HPV16, HPV18 and twelve other high-risk types (31, 33, 35, 39, 45, 51, 52, 56, 58, 59, 66, 68) without differentiation. Chlamydia trachomatis VÍCTOR Negative Negative [facility] INSURANCE BILL GC DNA Probe Negative Negative [facility] INSURANCE BILL MICROSCOPIC CYTOLOGIC EXAMINATION OF SMEAR OF SPECIMEN FROM FEMALE GENITAL TRACT PREPARED USING PAPANICOLAOU TECHNIQUE / Unknown 07/16/2016 5:15 PM CDT 07/17/2016 4:30 AM CDT Narrative [facility] INSURANCE BILL - 07/22/2016 1:17 PM CDT Source.............End[facility]ervix LMP / Prev Treat...None No. of containers..01 CYTYC Thin Prep Vial Resulting Agency Comment [facility] [address] [facility] ??[place] [id number] Bessie Marin MD LAB - PATHOLOGY/CYTO LOGY ORDERABLES [facility] INSURANCE BILL [address] [place] [address]
--- OUTSIDE RECORDS SUMMARY | 2024-12-22 08:29 | XMS_ITS | Clinical Summary ---
Author Organization [facility] Address [address] [place] [address] Care Team Providers Care Brick Pitcher Name Role Phone Unavailable Primary Care Provider Unavailabl e Source Comments [facility],non-owned Affiliates and Associated Physician Practices is amultiple site organization consisting of ambulatory clinics and hospital sitesin [place], [place], [place] and [place]. This disclosure is being madepursuant to the Care Everywhere program and may not contain all information available regarding this patient. Last updated 18.[facility] Allergies No known active allergies Medications * Be aware that medications may not be up to date on this document. Alwaysverify current medications with the patient. Medication Sig Dispensed Refills Start Date End Date Status Multiple Vitamin (MULTI VITAMIN DAILY PO) Active cetirizine (ZYRTEC ALLERGY) 10 MG gel capsule Take 1 (one) capsule by mouth once daily Active COLLAGEN-VITAMIN C PO Active Cholecalciferol 125 MCG (5000 UT) Take 1 (one) tablet by mouth once daily Active Ascorbic Acid 1000 MG Take 1 (one) tablet by mouth once daily Active zinc gluconate 50 MG tablet Take 1 (one) tablet by mouth once daily Active clobetasol (TEMOVATE) 0.05 % solution 01/07/2022 Active hydroquinone (LUSTRA; ELDOQUIN) 4 % cream APPLY CREAM TOPICALLY AT BEDTIME TO DARK SPOTS FOR UP TO 3 MONTHS 12/17/2021 Active spironolactone (ALDACTONE) 50 MG tablet 01/08/2022 Active tretinoin (RETIN-A) 0.025 % cream APPLY CREAM TOPICALLY AT BEDTIME TO FACE 12/16/2021 Active amLODIPine (NORVASC) 5 MG tabletIndications: Essential hypertension Take 1 (one) tablet by mouth once daily 90 tablet 3 01/12/2022 Active triamcinolone acetonide (Kenalog) 0.1 % ointment APPLY A THIN LAYER TO THE AFFECTED AREA(S) OF ECZEMA TWICE DAILY. NEVER TO FACE 08/23/2023 Active minoxidil (Loniten) 2.5 MG tablet Take 1 (one) tablet by mouth once daily 04/07/2024 Active estradiol (Vivelle-Dot) 0.1 MG/24HR patchIndications:V asomotor Symptoms of Menopause APPLY 1 PATCH TOPICALLY EVERY 3 DAYS. Reasons: Night Sweats and Hot Flashes Associated with Menopause 8 patch 12 11/24/2024 Active estradiol (Vivelle-Dot) 0.1 MG/24HR patch APPLY 1 PATCH TOPICALLY EVERY 3 DAYS. 8 patch 11/06/2024 Discontinue d(Reorder) Active Problems Problem Noted Date Diagnosed Date Chronic sinusitis 05/27/2023 11/12/2023 Acne 03/23/2023 11/12/2023 History of colonic polyps 12/10/20222022 Family history of diabetes mellitus 12/10/2022 11/12/2023 Screen for colon cancer 07/20/2022 Family history of colon cancer 06/23/2022 Overview (06/23/2022): Maternal uncle, in his 40s Pre-diabetes 01/12/2022 Vitamin D deficiency 01/18/2020 Class 1 obesity due to exces s calories with body mass index (BMI) of 32.0 to 32.9 in adult 05/20/2018 Atopic dermatitis 05/20/2018 Essential hypertension 05/20/2018 Resolved Problems Problem Noted Date Diagnosed Date Resolved Date Preop examination 06/02/2018 01/18/2020 Mood disorder 05/20/2018 01/18/2020 Ovarian cyst 05/20/2018 01/18/2020 Sickle cell trait 05/20/2018 01/18/2020 Encounters Date Type Department Care Team Description 11/24/2024 7:40 AM HEDDLE MACHINE OPERATOR Office Visit [facility] - ADVISORY APPLICATION DEVELOPER [address] [place] [address] Monae Dozier APRN-VALENTINO Well woman exam with routine gynecological exam (Primary Dx) 11/24/2024 Travel 11/13/2024 Travel 11/05/2024 Refill [facility] - ADVISORY APPLICATION DEVELOPER [address] [place] [address] Lala Field, DO Refill Request 09/22/2024 6:36 AM CDT - 09/22/2024 11:59 PM CDT Hospital Encounter [facility] [address] [place] [address] Discharge Disposition: Home or Self Care from Last 3 Months Immunizations Name Administration Dates Next Due Covid Moderna primary monova lent 12+ yr 0.5mL 09/26/2021,01/24/2021,12/27/2020 INFLUENZA VACCINE 08/22/2020,09/05/2019 TDAP (7yrs+) 03/20/2021 Zoster Hzv Vacc Recombinant Inj Im 01/12/2022 Family History Medical History Relation Name Comments None Known Father Leukemia Maternal Grandfather Diabetes Maternal Grandmother Hypertension Maternal Grandmother Stroke Maternal Grandmother Cancer - Colon Maternal Uncle Diabetes Mother CVA Sister Relation Name Status Comments Brother Alive Father Alive Maternal Grandfather Maternal Grandmother Maternal Uncle colon cancer in his 40s Mother Alive Sister Alive MRI showed evid ence of stroke at age 46 Social History Tobacco Use Types Packs/Day Years [...] Sex Assigned at Female 09/30/2020 2:47 PM HEDDLE MACHINE OPERATOR Gender Identity Female 09/30/2020 2:46 PM HEDDLE MACHINE OPERATOR Sexual Orientation Straight 09/30/2020 2: 47 PM HEDDLE MACHINE OPERATOR Last Filed Vital Signs Vital Sign Reading Time Taken Comments Blood Pressure 144/86 11/24/2024 7:42 AM HEDDLE MACHINE OPERATOR Pulse 85 11/24/2024 7:42 AM HEDDLE MACHINE OPERATOR Temperature 36.4 ??C (97.5 ??F) 04/13/2023 1 2:05 PM CDT Respiratory Rate 17 04/13/2023 12:2 0 PM CDT Oxygen Saturation 77% 04/13/2023 12: 20 PM CDT Inhaled Oxygen Concentration - - Weight 84.3 kg (185 lb 12.8 oz) 11/24/2024 7:42 AM HEDDLE MACHINE OPERATOR Height 160 cm (5' 3 ) 11/24/2024 7:42 AM HEDDLE MACHINE OPERATOR Body Mass Index 32.91 11/24/2024 7:42 AM HEDDLE MACHINE OPERATOR Plan of Treatment Health Maintenance Due Date Last Done Comments COLOGUARD (AGES 45-75) - COLON CA SCREENING 1971 CT COLONOGRAPHY - COLON CA SCREENING 1971 FIT - COLON CA SCREENING 1970 FLEX SIG - COLON CA SCREENING 1971 HEPATITIS B VACCINE (1 of 3 - 19+ 3-dose series) 1990 PNEUMOCOCCAL VACCINE 50+ (1 of 1 - PCV) 2021 ZOSTER VACCINE (2 of 2) 03/09/2022 01/12/2022 COVID-19 VACCINE (4 - season) 2024 09/26/2021, 01/24/2021, 12/27/2020 INFLUENZA VACCINE (#1) 2024 2, 08/22/2021, 08/22/2020, Additional history exists DEPRESSION SCREENING 11/22/2024 04/20/2024, 11/12/2023, 01/12/2022 SCREENING FOR DIABETES 04/11/2025 2, 02/19/2022, 01/12/2022, Additional history exists MAMMOGRAM 09/22/2025 09/22/2024, 08/24, 09/21/2022, Additional history exists COLON MONITORING 04/13/2026 04/13/2023, , 10/01/2022, Additional history exists Colorectal Cancer Screening 04/13/2026 LIPID TESTING 11/12/2028 11/12/2023, 03/3 11/2021, 03/21/2021, Additional history exists DTAP/TDAP/TD VACCINES (2 - Td or Tdap) 03/20/2031 03/20/2021 COLONOSCOPY - COLON CA SCREENING 04/13/2033 04/13/2023, 04/13/2023, 10/01/2022, Additional history exists HEPATITIS C SCREENING Completed 11/27/2022, 018 HIV SCREENING Completed 11/27/2022, 03/21/2021 HIB VACCINE Aged Out No longer eligi ble based on patient's age to complete this topic HPV VACCINE Aged Out No longer eligi ble based on patient's age to complete this topic MENINGOCOCCAL (Group B) VACCINE Aged Out No longer eligible based on patient's age to complete this topic MENINGOCOCCAL VACCINE Aged Out No won katie eligible based on patient's age to complete this topic Procedures Procedure Name Priority Date/Time Associated Diagnosis Comments MAMMO BILAT SCREENING W JASIEL Routine 09/22/2024 7:12 AM CDT Encounter for screening mammogram for malignant neoplasm of breast LIPID PROFILE W LDL/HDL RATIO Routine 11/12/2023 8:14 AM HEDDLE MACHINE OPERATOR Well woman exam with routine gynecological exam Hormone replacement therapy (HRT) ENDOSCOPY, COLON, SCREENING Routine 04/13/2023 10:42 AM CDT HEPATITIS SCREEN ACUTE Routine 11/27/2022 7:28 AM HEDDLE MACHINE OPERATOR Screening for venereal disease HIV-1 HIV-2 ANTIBODY + HIV P24 AG PANEL Routine 11/27/2022 7:28 AM HEDDLE MACHINE OPERATOR Screening for venereal disease HEMOGLOBIN A1C Routine 04/11/2022 11:50 AM CDT Pre-diabetes from Last 3 Months or Most Recently Relevant to Health Maintenance Results * Mammo Bilat Screening W Jasiel (09/22/2024 7:12 AM CDT) Anatomical Region Laterality Modality Breast Bilateral Mammography [...] been no significant interval change. Monae Dozier ORDER PULLER-TRANSITION OF CARE SPECIALIST MAMMO ORDERABLES * (ABNORMAL) LIPID PROFILE W LDL/HDL RATIO (11/12/2023 8:14 AM HEDDLE MACHINE OPERATOR) Cholesterol 182 100 - 199 mg/dL [facility] [...] BLOOD SPECIMEN / Unknown 11/12/2023 8:14 AM HEDDLE MACHINE OPERATOR 11/12/2023 Narrative Resulting Agency Comment Lab [facility] performed [facility]: [facility] [address] [facility] [phone] Monae Dozier ORDER PULLER-TRANSITION OF CARE SPECIALIST LAB - CHEMISTRY O RDERABLES [facility] ACCOUNT BILL [address] [place] [address] * ENDOSCOPY, COLON, SCREENING (04/13/2023 10:42 AM CDT) Report Endoscopy POC _ Patient Name: Tasha Leary ? Procedure Date: 04/13/2023 10:42 AM ? Date of : 1970 ?Admit Type: Outpatient Age: 52 ? Gender: Female Attending MD: Marlene Flores MD, [id number] _ Procedure: ? Colonoscopy Indications: ? High risk colon cancer surveillance: Personal history ? of colonic polyps, ; Reveiw of prior poylpectomy site Providers: ? Marlene Flores MD (Doctor) Referring [...] ? preparation was evaluated using the BBPS ([place] Bowel ? Preparation Scale) with scores of: [...] Procedure Code(s): ? --- Professional --- ? 48172, Colonoscopy, flexible; with biopsy, single or multiple ? --- Technical --- ? 39622, Colonoscopy, flexible; with biopsy, single or multiple [...] abscess ? without bleeding CPT copyright 2020 [employer]. All rights reserved. The codes documented in this report are preliminary and upon hand etcher helper review may be revised to meet current compliance requirements. _ Marlene Flores MD 04/13/2023 12:07:15 PM Number of Addenda: 0 Note Initiated On: 04/13/2023 10:42 AM [facility] ENDOSCOPY 04/13/2023 10:4 2 AM CDT Marlene Flores MD [place] [address] * HIV-1 HIV-2 ANTIBODY + HIV P24 AG PANEL (11/27/2022 7:28 AM HEDDLE MACHINE OPERATOR) HIV Screen 4th Generation w Reflex NON-REACT [...] ?? For additional information please refer to http://Datanomic.MyRepublic/faq/VVZ956 (This link is being provided for informational/ educational purposes only.) The performance of this assay has not been clinically validated in patients less than 2 years old. Test Performed at: [facility] [address] [place], [place] ??[address] HORACE OLSEN DO,MPH Blood BLOOD SPECIMEN / Unknown 11/27/2022 7:28 AM HEDDLE MACHINE OPERATOR 11/27/2022 7:29 AM HEDDLE MACHINE OPERATOR Monae Dozier ORDER PULLER-TRANSITION OF CARE SPECIALIST LAB - CHEMISTRY O RDERABLES [facility] [address] [place] [address] * HEPATITIS SCREEN ACUTE (11/27/2022 7:28 AM HEDDLE MACHINE OPERATOR) Hepatitis A Virus Antibody IgM NON-REACTI VE NON-REACT FRANCISCA QUEST Comment: For additional information, please refer to http://Datanomic.MyRepublic/faq/VEO937 (This link is being provided for informational/ [...] a test for HCV RNA (test code 59584) is suggested. For additional information please refer to http://education.MyRepublic/faq/TRI21d7 (This link is being provided for informational/ educational purposes only.) Test Performed at: [facility] [address] [place] [place], [place] ??[address] HORACE OLSEN DO,MPH Blood BLOOD SPECIMEN / Unknown 11/27/2022 7:28 AM HEDDLE MACHINE OPERATOR 11/27/2022 7:29 AM HEDDLE MACHINE OPERATOR Monae CEDILLO LAB - CHEMISTRY O RDERABLES Performing Organization Address [facility] Co de Phone Number [facility] [address] [place] [phone] * (ABNORMAL) HEMOGLOBIN A1C (04/11/2022 11:50 AM CDT) Hemoglobin A1c 6.2(H) <5.7 % of total [...] children. REPORT COMMENT: FASTING:NO Test Performed at: [email or web address] ??[phone] MADINA JULIAN MD Blood BLOOD SPECIMEN / Unknown 04/11/2022 11:50 AM CDT 04/11/2022 11:51 AM CDT Delores Bell MD LAB - SERGEANT AT ARMS RY ORDERABLES Performing Organization Address [facility]/ZIP Co de Phone Number [facility] [address] [place] [address], [place] [address] from Last 3 Months or Most Recently Relevant to Health Maintenance [place] [address] Tasha Leary Personal/Famil y Self [address] [place] [address] [place] [address]
--- OUTSIDE RECORDS SUMMARY | 2024-12-22 08:29 | XMS_ITS | Clinical Summary ---
Author Organization [facility] Address [address] [place] [address] Phone Care Team Providers Care Director Plans Name Role Phone Unavailable Primary Care Provider Unavailabl e Social History Tobacco Use Types Packs/Day Years Used Date Smoking Tobacco: Never Assessed Comments Unknown Sex and Gender Information Value Date Recorded Sex Assigned at Not on file Legal Sex Female 1:02 PM CDT Gender Identity Not on file Sexual Orientation Not on file Plan of Treatment Health Maintenance Due Date Last Done Comments DTAP/TDAP/TD VACCINES (1 - Tdap) 1990 HEPATITIS B VACCINES (1 of 3 - 19+ 3-dose series) 1990 CERVICAL CANCER SCREENING 2001 BREAST CANCER SCREENING 2011 COLORECTAL SCREENING 2016 Colorectal Cancer Screening 2016 FIT-DNA Q 3 years 2016 FIT/FOBT Q 1 year 2016 Flex Sig/CT Colonography Q 5 years 2016 ZOSTER VACCINE (1 of 2) 2021 INFLUENZA VACCINE (#1) 2024 PNEUMOCOCCAL VACCINE 0-64 YEARS Aged Out No longer eligible based on patient's age to complete this topic
--- OUTSIDE RECORDS SUMMARY | 2024-12-22 08:29 | XMS_ITS | Data Portability ---
Author Organization [place] - [facility] [employer], Main Office Address [address] [place] [address] Care Team Providers Care Clinical Operations Manager Name Role Phone LUIS M FORBES Primary Care Provider Assessment No assessment recorded. Plan of Treatment Reminders Order Date Submit Date Provider Last Modified By Organization Details Last Modified Time Details Appointments None recorded. Lab None recorded. Referral None recorded. Procedures None recorded. Surgeries None recorded. Imaging None recorded. Medication Orders amlodipine 5 mg tablet [address] [facility] [address] [facility], [place], [address], 11:15:28 Patient TargetsNo targets recorded. Patient Instructions Encounter Date Encounter Id Patient Instructions Last Modified By Organization Details Last Modified Time 07/01/2023 [id number] which she will undergo balloon assisted septoplasty Not available 07/01/2023 15:52:48 08/26/2023 [id number] she will return as needed Not available 08/26/2023 15:39:33 Reason for Referral None Reported. Results Created Date Observation Date Name Description Value Unit Range Abnormal Flag Note LastModifiedBy Organization Detail LastModifiedTime 06/10/[address], maxil lofac ial, w/o contr ast [facility] [address], [place] [address] [phone] Patien t Name: SHEA MORALES Access ion #: [id number] Sex: F : 1970 1 Locati on: RA2 Attend ing Physic rafael: TOI LIN Orderi ng Physic rafael: TOI LIN Exam Date: 023 2:55 PM Exam Name: CT MAXILL OFACIA L WO Admitt ing Diagno sis(es ): RADIOL OGY REPORT - FINAL EXAM: CT MAXILL OFACIA L WO HISTOR Y: chroni c sinusi tis 52-yea r-old female with chroni c nasal conges tion and draina ge. COMPAR ELISEO: None availa ble. TECHNI QUE: Noncon trast axial CT images of the parana deann sinuse s were perfor med. Jones l and sagitt al reform atted images were obtain ed. This CT exam was perfor med using one or more of the follow ing dose reduct ion techni ques: Automa salo exposu re contro l, adjust ment of the mA and/or kV accord ing to patien t size, or use of iterat oli recons tructi on techni que. FINDIN GS: Page 1 of 2 [facility] t Name: SHEA MORALES Access ion #: [id number] Sex: F : 1970 1 Exam Date: 023 2:55 PM Exam Name: CT MAXILL OFACIA L WO Admitt ing Diagno sis(es ): There is a small right maxill hernando sinus mucous retent ion cyst. The other parana deann sinuse s are clear. No facial bone fractu res are identi fied. The nasal septum is mildly deviat ed to the right. The OMCs are patent . There are tiny bilate ral sugar bullos a. There is a large left Julianne cell (image 17, series 203). The mastoi d air cells and middle ear spaces are clear. No fractu res are identi fied about the facial bones. There is hypert rophy of the palati ne and lingua l tonsil s, with mild narrow ing of the oropha ryngea l airway . There is a dental cavity involv ing the left maxill hernando 3rd molar tooth. IMPRES TRELL: 1. Minima l right maxill hernando sinus diseas e. The other parana deann sinuse s are clear. 2. Tonsil lar hypert rophy with mild narrow ing of the upper airway . 3. Dental cavity involv ing the left maxill hernando 3rd molar tooth. Recomm end dental consul tation . Create d and electr onical ly signed by: Inderjit parmar MD Signed Date: 3:35 PM (CT) Dictat ed by: Inderjit parmar MD DD: 3:35 PM (CT) DT: 3:35 PM (CT) Page [email or web address] [facility] (Imaging) [address] [place], [address], 06/14/2023 10:04:49 06/10/[address], sinus es, w/o contr ast No observ ation record ed. [email or web address] [facility] [address] [place] [address] , [place], [address], 06/14/2023 10:05:33 06/16/[address], sinus es, w/o contr ast No observ ation record ed. [email or web address] [facility] [address] [place] [address] , [place], [address], 06/17/2023 14:25:40 08/17/20 23 08/17/2023 elect gilma lopezgr am No observ ation record ed. [email or web address] Not Available 2022 12:17:07 Result Notes None recorded. Problems Name Problem SNOMED Code Status Onset Date Resolution Date Notes Provider Name and Address Organization Details Recorded Time Family history of diabetes mellitus 726332589 Active 2022 Not Available [facility] 3 08:05:43 History of polyp of colon 881109361 Active 2022 Not Available [facility] 3 08:05:43 Essential hypertension 66407608 Active 2022 Not Available [facility] 3 08:05:43 Acne 31035080 Active 2022 Not Available [facility] 3 08:05:43 Chronic sinusitis 84950103 Active 2022 Not Available [facility] 3 08:05:43 Deviated nasal septum 456574883 Active 2022 Not Available [facility] 3 08:05:43 Problem Notes None recorded. Procedures Surgical History Date Name Laterality Status Provider Name and Address Organization Details Recorded Time Partial hysterectomy completed Not Available [facility] 01/20/2023 10:41:20 Breast reduction completed Not Available [facility] 01/20/2023 10:41:20 colonoscopy completed Not Available [facility] 01/20/2023 10:41:20 tonsillectomy completed Ashley Marcus RN [facility] [employer] [facility] 05/27/2023 15:56:31 nasal septoplasty completed Ashley Marcus RN [facility] [employer] [facility] 08/24/2023 11:33:58 Imaging Results Imaging Date Name Status LastModified by Organization Details LastModified Time 06/10/2023 CT, maxillofacial, w/o contrast completed [email or web address] [facility] (Imaging) [address] [place], [address], 06/14/2023 10:04:49 06/10/2023 CT, sinuses, w/o contrast completed [email or web address] [address] [place], [address], 06/14/2023 10:05:33 06/16/2023 CT, sinuses, w/o contrast completed [email or web address] [address] [place], [address], 06/17/2023 14:25:40 08/17/2023 electrocardiogram completed [email or web address] Informa tion not available 08/18/2023 12:17:07 Procedure Notes None recorded. Medical Equipment None Reported. Allergies No known drug allergies Medications Name Sig Start Date Stop Date Status Note LastModified by Organization Details LastModified Time tretinoin 0.025 % topical cream APPLY CREAM TOPICALL Y AT BEDTIME TO FACE active Not Available Not Available No t Available hydroquin one 4 % topical cream APPLY TOPICALL Y AT BEDTIME TO DARK SPOTS FOR UP TO 3 MONTHS. active Not Available Not Available No t Available amlodipin e 5 mg tablet TAKE 1 TABLET BY MOUTH ONCE DAILY FOR 90 DAYS active Not Available Not Available No t Available amoxicill in 875 mg tablet Take 1 tablet every 12 hours by oral route for 7 days. 03/23 completed Not Available Not Available Not Available hydrocodo ne 7.5 mg-acetam inophen 325 mg tablet TAKE 1 TABLET BY MOUTH EVERY 4 HOURS NEEDED 08/26 completed Not Available Not Available Not Available triamcino lone acetonide 0.1 % topical ointment APPLY A THIN LAYER TO THE AFFECTED AREA(S) OF ECZEMA TWICE DAILY. NEVER TO FACE active Not Available Not Available No t Available polymyxin B sulfate 10,000 unit-trim ethoprim 1 mg/mL eye drops INSTILL 1 DROP INTO EACH EYE 4 TIMES DAILY FOR ONE WEEK ALAYNA Marie AFTER SURGERY 08/26 completed Not Available Not Available Not Available hydrochlo rothiazid e 12.5 mg capsule Take 1 capsule every day by oral route for 90 days. active On hold d/t spironol actone Not Available Not Available Not Available clobetaso l 0.05 % scalp solution APPLY TO AFFECTED AREA(S) OF SCALP TWICE DAILY IN THE MORNING AND EVENING. NEVER APPLY TO FACE active Not Available Not Available No t Available spironola ctone 50 mg tablet TAKE 1 TABLET BY MOUTH ONCE DAILY active Not Available Not Available No t Available hydrochlo rothiazid e 12.5 mg tablet TAKE 1 TABLET BY MOUTH ONCE DAILY 04/29 completed Not Available Not Available Not Available Clenpiq 10 mg-3.5 gram-12 gram/160 mL oral solution TAKE DIRCTED 08/26 completed Not Available Not Available Not Available Vitals Date Recorded Oxygen saturation Oxygen saturation in Arterial blood by Pulse oximetry Heart rate Body temperature Body weight Systolic blood pressure Diastolic blood pressure Provider Name and Address Organization Details Last Updated DateTime 3 99 % 99 % 99 /min 98 [degF] 99065.5 5 g 120 mm[Hg] 67 mm[Hg] Not Available [facility] 10:41:43 Date Recorded Body weight Provider Name an d Address Organization Details Last Updated DateTime 03/23/2023 39334.63 g Tracy cui RN [place] [employer] [facility] 03/23/2023 10:45:44 Date Recorded Body mass index (BMI) Body height Provider Name and Address Organization Details Last Updated DateTime 03/23/2023 30.9 kg/m2 162.56 cm [facility] [employer] [facility] 03/23/2023 10:45:55 Date Recorded Body temperature Provider Name a nd Address Organization Details Last Updated DateTime 03/23/2023 97.4 [degF] AUDELIA Malcolm [facility] [employer] [facility] 03/23/2023 10:46:14 Date Recorded Heart rate Provider Name an d Address Organization Details Last Updated DateTime 03/23/2023 81 /min AUDELIA Morgan [facility] [employer] [facility] 03/23/2023 10:46:28 Date Recorded Oxygen saturation Oxygen saturation in Arterial blood by Pulse oximetry Provider Name and Address Organization Details Last Updated DateTime 03/23/2023 99 % 99 % AUDELIA Malcolm [facility] [employer] [facility] 03/23/2023 10:46:37 Date Recorded Body height Provider Name an d Address Organization Details Last Updated DateTime 05/27/2023 162.56 cm AUDELIA Posada [employer] [facility] 05/27/2023 15:54:33 Date Recorded Body mass index (BMI) Body weight Provider Name and Address Organization Details Last Updated DateTime 05/27/2023 31.7 kg/m2 77096.43 g [facility]DELIA Posada [facility] [employer] [facility] 05/27/2023 15:55:35 Date Recorded Body temperature Provider Name a nd Address Organization Details Last Updated DateTime 05/27/2023 97.7 [degF] AUDELIA Posdaa [employer] [facility] 05/27/2023 15:55:37 Date Recorded Body height Provider Name an d Address Organization Details Last Updated DateTime 07/01/2023 162.56 cm AUDELIA Posada [facility] [employer] [facility] 07/01/2023 15:38:00 Date Recorded Body mass index (BMI) Body weight Provider Name and Address Organization Details Last Updated DateTime 07/01/2023 31.9 kg/m2 41868.18 g AUDELIA Posada [facility] [employer] [facility] 07/01/2023 15:39:14 Date Recorded Body temperature Provider Name a nd Address Organization Details Last Updated DateTime 07/01/2023 97.8 [degF] Ashley Marcus RN [facility] [employer] 07/01/2023 15:39:38 Date Recorded Body height Provider Name an d Address Organization Details Last Updated DateTime 08/26/2023 162.56 cm Varsha Slaughter [facility] [employer] 08/26/2023 15:19:50 Date Recorded Body mass index (BMI) Body weight Provider Name and Address Organization Details Last Updated DateTime 08/26/2023 30.6 kg/m2 64582.44 g Varsha Slaughter [facility] [employer] 08/26/2023 15:20:49 Date Recorded Systolic blood pressure Diastolic blood pressure Provider Name and Address Organization Details Last Updated DateTime 03/23/2023 132 mm[Hg] 84 mm[Hg] Tracy Russo RN [facility] [employer] 03/23/2023 10:47:38 Social History Question Answer Notes LastModified by Organizat ion Details LastModified Time Tobacco Smoking Status Never Smoker MIRNA Macedo, [facility] [employer] 08/26/2023 15:11:40 What Is Your Level Of Alcohol Consumption? Occasional Information not available 03/23/2023 What Is Your Level Of Caffeine Consumption? Occasional Information not available 03/23/2023 Do You Use Your Seat Belt Or Car Seat Routinely? Yes Information not available 08/26/2023 Do You Participate In Social Media? Yes Information not available 08/26/2023 Do You Feel Stressed (tense, Restless, Nervous, Or Anxious, Or Unable To Sleep At Night)? [id number] Information not available 08/26/2023 Do You Use Any Illicit Or Recreational Drugs? No Information not available 08/26/2023 Sex: Unknown Functional Status None recorded. Mental Status None recorded. Family History Relationship Description Onset Age of this Age Resolved Age Notes LastModified by Organization Details LastModified Time Mother Diabetes mellitus [id number] Not available 01/20/2023 10:41:21 Maternal Grandmother Diabetes mellitus [id number] Not available 01/20/2023 10:41:21 Maternal Grandmother Essential hypertension [email or web address] Not available 03/2023 15:11:40 Maternal Grandfather Essential hypertension [email or web address] Not available 03/2023 15:11:40 Notes:FAMILY HISTORY OF SINU S PROBLEMS Medical History Condition Response HYPERTENSION Y Gynecological History Statement/Question Response Menses Monthly N Date of LMP Obstetrics History GPAL:G 0 P 0 0 0 0 Past Encounters Encounter ID Performer Location Encounter Start Date Encounter Closed Date Diagnosis/Indication Diagnosis SNOMED-CT Code Diagnosis ICD10 Code Diagnosis Note [id number] [facility] Primary Care [facility] [address] [place] [address] 12/11/2022 00:00:00 12/11/2022 17:59:33 [id number] VINAYAK Aguilar [facility] [address] [facility] [address] [place] [address] 03/23/2023 10:41:10 03/23/2023 11:17:56 Essential hypertension 80983283 I10 Stable with current regimen.As ymptomatic at this timeEncour aged pt to increase water intake, reduce caffeine intake, exercise regularly, decrease/e liminate sodium intake, work on weight loss and stress reductionW ill continue to monitor closelyNor vasc 5mg dailyHctz 12.5mg daily (on hold while taking spironolac tone) Acne 00456406 L70.9 Improving per patient, with spironolac tone (prescribe d by derm).Cont inue with hypoallerg enic face soap and lotion and products for face with gentle exfoliatio n but careful not to over wash/scrub . Hypoallerg enic products, dietary precaution s reviewed. Do not pick at lesions. Discussed some remaining acne normal, even with tx. [id number] Toi Woods MD [facility] [place] [address] [place] [address] 05/27/2023 15:38:04 06/14/2023 12:16:30 Deviated nasal septum 426842286 J34.2 Chronic sinusitis 776868 00 J32.9 [id number] MD NILAY Teran_[facility] [place] [address] [place] [address] 07/01/2023 15:22:32 07/01/2023 15:54:13 Deviated nasal septum 493582961 J34.2 Chronic sinusitis 429957 00 J32.9 [id number] MD NILAY [facility]an[facility] [place] [address] [place] [address] 08/26/2023 15:10:03 08/26/2023 15:41:27 Deviated nasal septum 158525438 J34.2 Health Concerns Section Related Observation LastModified by Organization Detai ls LastModified Time None Recorded Concern Status LastModified by Organization Details LastModified Time None Recorded Advance Directives Directive None Recorded Payers Encounter Date Sequence Insurance Name Policy Number Policy Dasilva Covered Member ID Dasilva Member ID Guarantor Name 03/23/2023 1 [place] [id number] [facility] [id number] Tasha Kang Anderson 05/27/2023 1 [place] [id number] [facility] [id number] Tasha Morales 07/01/2023 1 [place] [id number] Tasha Anderson [id number] Tasha Morales 08/26/2023 1 [place] [id number] Tasha Anderson [id number] Tasha M Anderson Notes Date Note Type Note Provider Name and Address Organization Details Recorded Time 03/23/2023 text/html 03/23/23: 1. Pt in office for 4 month f/u appt. Pt denies any new medical concerns at this time. 12/11/22: 1. Pt in office to establish care. Was previously seeing Dr. Bell at [facility].2. Pt states she takes norvasc and hctz for htn, but the hctz is on hold while her acne is being tx'd with spironolactone by derm.3. Pt states she had partial hyst 3yrs ago (2019) d/t fibroids.4. Pt states she had breast reduction in 2020 as well. Luis M Forbes, MENTAL HEALTH NURSE PRACTITIONER [address], [place], [address], [employer] 03/23/2023 18:28:52 05/27/2023 text/html this patient has a year's history of sinusitis and has been on antibiotics for this in the past she does have facial pain and headaches she takes many zebc-rqo-sxcflpi medications thinks that some of it may be worse during spring and fall. Toi Woods MD [address], [place], [address], [employer] 05/27/2023 16:11:35 07/01/2023 text/html the CT scan demonstrates right septal deviation which was known. Otherwise there was a small maxillary sinus cyst which does not require intervention Toi Woods MD [address], [place], [address], [employer] 07/01/2023 15:53:08 08/26/2023 text/html Patient is doing very well following septoplasty Toi Woods MD [address], [place], [address], [employer] 08/26/2023 15:39:52 OBGyn Episode No OBEpisode recorded.
--- OUTSIDE RECORDS SUMMARY | 2024-12-22 08:29 | XMS_ITS | Encounter Summary ---
Author Organization [facility] Address [address] [place] [address] Care Team Providers Care Drywall Boardhanger Name Role Phone Unavailable Primary Care Provider Unavailabl e Encounter Details Date Type Department Care Team (Late st Contact Info) Description 12/15/2020 Lab Requisition [facility] Laboratory Services [facility] [address] [facility] [address] [place] [address] [place] [address] [facility] [address] [place] [address] Encounter for general adult medical examination without abnormal findings Social History Tobacco Use Types Packs/Day Years [...] 2019 NOVEL CORONAVIRUS (COVID-19) PCR DETECTION Routine 12/13/2020 9:37 AM EDGER MACHINE HELPER Encounter for general adult medical examination without abnormal findings documented in this encounter Results * 2019 NOVEL CORONAVIRUS (COVID-19) PCR DETECTION (12/13/2020 9:37 AM EDGER MACHINE HELPER) COVID-19 PCR NOT DETECTED Not Detected 12/16/19 12:45 AM EDGER MACHINE HELPER [facility] PERFORMING [facility] 12/16/2020 12:45 AM EDGER MACHINE HELPER [facility] Upper Respiratory Collection / Unknown 12/13/2020 9:37 AM EDGER MACHINE HELPER 12/15/2020 5:28 PM EDGER MACHINE HELPER Narrative [facility] - 12/16/2020 12:45 AM EDGER MACHINE HELPER This test has been authorized by the FDA under an Emergency Use Authorization for use by authorized laboratories.?? This test has been validated in accordance with the FDA's guidance regarding Coronavirus Disease-2019 testing.?? Optimum specimen types and timing for peak viral levels during infection have not been determined.?? A negative RT-PCR result does not rule out infection with the 2019-Novel Coronavirus. Rancho Joshi MD MICROBIOLOGY - GENERAL ORDER BELEN Final Result [facility] CLIA# [id number] [address] [place] [address] documented in this encounter Visit Diagnoses Diagnosis Encounter for general adult medical examination without abnormal findings Routine general medical examination at a health care facility documented in this encounter
--- OUTSIDE RECORDS SUMMARY | 2024-12-22 08:29 | XMS_ITS | Encounter Summary ---
Author Organization [facility] Address [address] [place] [address] Care Team Providers Care Deputy General Counsel Name Role Phone Unavailable Primary Care Provider Unavailabl e Encounter Details Date Type Department Care Team (Late st Contact Info) Description 07/08/2020 Lab Requisition [facility] Laboratory Services [facility] [address] [place] [place] [address] Graham Patricia MD [address] [facility] [address] [place] [address] Encounter for screening for other viral diseases Social History Tobacco Use Types Packs/Day Years [...] 2019 NOVEL CORONAVIRUS (COVID-19) PCR DETECTION Routine 07/08/2020 3:00 PM CDT Encounter for screening for other viral diseases documented in this encounter Results * 2019 NOVEL CORONAVIRUS (COVID-19) PCR DETECTION (07/08/2020 3:00 PM CDT) COVID-19 PCR NOT DETECTED NOT DETECTED 07/10/2020 2:49 AM CDT [facility] Comment: A Not Detected (negative) test result for this test means that SARS- CoV-2 RNA was not present in the specimen above the limit of detection. A negative result does not rule out the possibility of COVID-19 and should not be used as the sole basis for treatment or patient management decisions. ??If COVID-19 is still suspected, based on exposure history together with other clinical findings, re-testing should be considered in consultation with public health authorities. Laboratory test results should always be considered in the context of clinical observations and epidemiological data in making a final diagnosis and patient management decisions. Please review the Fact Sheets and FDA authorized labeling available for health care providers and patients using the following websites: [email or web address]/home/[email or web address]/HCP/NAAT/fact-sheet2 [email or web address]://[email or web address]/home/Covid-19/Patients/NAAT/ fact-sheet2 This test has been authorized by the FDA under an Emergency Use Authorization (EUA) for use by authorized laboratories. Due to the current public health emergency, [employer] is receiving a high volume of samples from a wide variety of swabs and media for COVID-19 testing. In order to serve patients during this public health crisis, samples from appropriate clinical sources are being tested. Negative test results derived from specimens received in non-commercially manufactured viral collection and transport media, or in media and sample collection kits not yet authorized by FDA for COVID-19 testing should be cautiously evaluated and the patient potentially subjected to extra precautions such as additional clinical monitoring, including collection of an additional specimen. Methodology: ??Nucleic Acid Amplification Test (NAAT) includes PCR or TMA ?? Additional information about COVID-19 can be found at the [employer] website: [email or web address]. Upper Respiratory Collection / Unknown 07/08/2020 3:00 PM CDT 07/08/2020 6:48 PM CDT Narrative [facility] - 07/10/2020 2:49 AM CDT Performing Organization Information: ?Site ID: [place] ?Name: [facility] ?Address: [address] [address] ?Director: Theodore Cobb D.O., MPH us Graham Patricia MD MICROBIOLOGY - GENERAL ORDERA BLES Final Result [facility] [phone] documented in this encounter Visit Diagnoses Diagnosis Encounter for screening for other viral diseases documented in this encounter
--- OUTSIDE RECORDS SUMMARY | 2024-12-22 08:29 | XMS_ITS | Encounter Summary ---
Author Organization [facility] Address [address] [place] [address] Care Team Providers Care Economist Research Assistant Name Role Phone Unavailable Primary Care Provider Unavailabl e Encounter Details Date Type Department Care Team (Late st Contact Info) Description 07/15/2020 Lab Requisition [facility] Laboratory Services S [facility] [address] [place] [address] Graham Patricia MD [address] [place] [address] Social History Tobacco Use Types [...] 2019 NOVEL CORONAVIRUS (COVID-19) PCR DETECTION Routine 07/15/2020 7:00 AM CDT documented in this encounter Results * 2019 NOVEL CORONAVIRUS (COVID-19) PCR DETECTION (07/15/2020 7:00 AM CDT) COVID-19 PCR NOT DETECTED NOT DETECTED 07/16/2020 4:18 PM CDT [facility] Comment: A Not Detected (negative) [...] a final diagnosis and patient management decisions. ?? Please review the Fact Sheets and FDA authorized labeling available for health care providers and patients using the following websites: https://www.Hutchinson Technology.Simbiosis/home/Covid-19/HCP/Quest[facility]/fact- sheet.html https://www.Hutchinson Technology.Simbiosis/home/Covid-19/Patients/ QuestIVD/fact-sheet.html This test has been authorized by the FDA under an Emergency Use Authorization (EUA) for use by authorized laboratories. Due to the current public health emergency, [employer] is receiving a high volume of samples [...] about COVID-19 can be found at the [employer] website: www.NPR.Simbiosis/Covid19. Upper Respiratory Collection / Unknown 07/15/2020 7:00 AM CDT 07/15/2020 11:37 AM CDT Narrative [facility] - 07/16/2020 4:18 PM CDT Performing Organization Information: ?Site ID: [place] ?Name: [facility] ?Address: [address] [address] ?Director: Theodore Cobb D.O., MPH us Graham Patricia MD MICROBIOLOGY - GENERAL ORDERA BLES Final Result [facility] [phone] documented in this encounter Visit Diagnoses Not on filedocumented in this encounter
--- OUTSIDE RECORDS SUMMARY | 2024-12-22 08:29 | XMS_ITS | Referral Summary ---
Author Organization [facility] Address [address] [place] [address] Care Team Providers Care Twisting Machine Operator Name Role Phone Unavailable Primary Care Provider Unavailabl e Source Comments [facility],non-owned Affiliates and Associated Physician Practices is amultiple site organization consisting of ambulatory clinics and hospital sitesin [place], [place], [place] and [place]. This disclosure is being madepursuant to the Care Everywhere program and may not contain all information available regarding this patient. Last updated 18.[facility] Encounters Date Type Department Care Team Description 11/24/2024 Travel 11/24/2024 7:40 AM TEAM PSYCHOLOGIST Office Visit [facility] - DERMATOLOGY NURSE PRACTITIONER [address] [facility] [address] [place] [address] Monae Dozier APRN-VALENTINO Well woman exam with routine gynecological exam (Primary Dx) 11/13/2024 Travel 11/05/2024 Refill [facility] - DERMATOLOGY NURSE PRACTITIONER [address] [facility] [address] [place] [address] Lala Field, Refill Request 09/22/2024 6:36 AM CDT - 09/22/2024 11:59 PM CDT Hospital Encounter [facility] [address] [facility] [address] [place] [address] Discharge Disposition: Home or Self Care from Last 3 Months Allergies No known active allergies Medications * [...] 01/18/2020 Sickle cell trait 05/20/2018 01/18/2020 Immunizations Name Administration Dates Next Due Covid Moderna primary monova lent 12+ yr 0.5mL 09/26/2021,01/24/2021,12/27/2020 INFLUENZA VACCINE 08/22/2020,09/05/2019 TDAP (7yrs+) 03/20/2021 Zoster Hzv Vacc Recombinant Inj Im 01/12/2022 Social History Tobacco Use Types Packs/Day Years [...] Sex Assigned at Female 09/30/2020 2:47 PM TEAM PSYCHOLOGIST Gender Identity Female 09/30/2020 2:46 PM TEAM PSYCHOLOGIST Sexual Orientation Straight 09/30/2020 2: 47 PM TEAM PSYCHOLOGIST Last Filed Vital Signs Vital Sign Reading Time Taken Comments Blood Pressure 144/86 11/24/2024 7:42 AM TEAM PSYCHOLOGIST Pulse 85 11/24/2024 7:42 AM TEAM PSYCHOLOGIST Temperature 36.4 ??C (97.5 ??F) 04/13/2023 1 2:05 PM CDT Respiratory Rate 17 04/13/2023 12:2 0 PM CDT Oxygen Saturation 77% 04/13/2023 12: 20 PM CDT Inhaled Oxygen Concentration - - Weight 84.3 kg (185 lb 12.8 oz) 11/24/2024 7:42 AM TEAM PSYCHOLOGIST Height 160 cm (5' 3 ) 11/24/2024 7:42 AM TEAM PSYCHOLOGIST Body Mass Index 32.91 11/24/2024 7:42 AM TEAM PSYCHOLOGIST Plan of Treatment Not on file Procedures Procedure Name Priority Date/Time Associated Diagnosis Comments MAMMO BILAT SCREENING W JASIEL Routine 09/22/2024 7:12 AM CDT Encounter for screening mammogram for malignant neoplasm of breast LIPID PROFILE W LDL/HDL RATIO Routine 11/12/2023 8:14 AM TEAM PSYCHOLOGIST Well woman exam with routine gynecological exam Hormone replacement therapy (HRT) ENDOSCOPY, COLON, SCREENING Routine 04/13/2023 10:42 AM CDT HEPATITIS SCREEN ACUTE Routine 11/27/2022 7:28 AM TEAM PSYCHOLOGIST Screening for venereal disease HIV-1 HIV-2 ANTIBODY + HIV P24 AG PANEL Routine 11/27/2022 7:28 AM TEAM PSYCHOLOGIST Screening for venereal disease HEMOGLOBIN A1C Routine 04/11/2022 11:50 AM CDT Pre-diabetes from Last 3 Months or Most Recently Relevant to Health Maintenance Results * Mammo Bilat Screening W Jsaiel (09/22/2024 7:12 AM CDT) Anatomical Region Laterality [...] been no significant interval change. Monae Dozier JUNIOR NETWORK ENGINEER-SIDE TRIMMER MAMMO ORDERABLES * (ABNORMAL) LIPID PROFILE W LDL/HDL RATIO (11/12/2023 8:14 AM TEAM PSYCHOLOGIST) Cholesterol 182 100 - 199 mg/dL [facility] [...] BLOOD SPECIMEN / Unknown 11/12/2023 8:14 AM TEAM PSYCHOLOGIST 11/12/2023 Narrative Resulting Agency Comment [facility] [address] [place] [address] ??Critical access hospital [phone] Monae Dozier APRN-SIDE TRIMMER LAB - CHEMISTRY O RDERABLES [facility] ACCOUNT BILL [address] [place] [address] * ENDOSCOPY, COLON, SCREENING (04/13/2023 10:42 AM CDT) Report Endoscopy POC _ Patient Name: Tasha Leary ? Procedure Date: 04/13/2023 10:42 AM ? Date of : 1970 ?Admit Type: Outpatient Age: 52 ? Gender: Female Attending MD: Marlene Flores MD, [id number] _ Procedure: ? Colonoscopy Indications: ? High [...] ? preparation was evaluated using the BBPS ([place] Bowel ? Preparation Scale) with scores of: [...] Procedure Code(s): ? --- Professional --- ? 27049, Colonoscopy, flexible; with biopsy, single or multiple ? --- Technical --- ? 55980, Colonoscopy, flexible; with biopsy, single or multiple [...] abscess ? without bleeding CPT copyright 2020 [employer]. All rights reserved. The codes documented in this report are preliminary and upon hims coder review may be revised to meet current compliance requirements. _ Marlene Flores MD 04/13/2023 12:07:15 PM Number of Addenda: 0 Note Initiated On: 04/13/2023 10:42 AM [facility] 04/13/2023 10:4 2 AM CDT Marlene Flores MD GI PROCEDURE ORDERAB LES [facility] [place] [address] * HIV-1 HIV-2 ANTIBODY + HIV P24 AG PANEL (11/27/2022 7:28 AM TEAM PSYCHOLOGIST) HIV Screen 4th Generation w Reflex NON-REACT [...] ?? For additional information please refer to http://Trending Taste.Balanced/faq/ZUS837 (This link is being provided for informational/ educational purposes only.) The performance of this assay has not been clinically validated in patients less than 2 years old. Test Performed at: [place] ??[id number] HORACE OLSEN DO,MPH Blood BLOOD SPECIMEN / Unknown 11/27/2022 7:28 AM TEAM PSYCHOLOGIST 11/27/2022 7:29 AM TEAM PSYCHOLOGIST Monae Dozier JUNIOR NETWORK ENGINEER-SIDE TRIMMER LAB - CHEMISTRY O RDERABLES Performing Organization Address City/State/[facility] Co de Phone Number [facility] [address] [place] [address] * HEPATITIS SCREEN ACUTE (11/27/2022 7:28 AM TEAM PSYCHOLOGIST) Hepatitis A Virus Antibody IgM NON-REACTI VE NON-REACT [facility] Comment: For additional information, please refer to http://TP Therapeutics/faq/SFD421 (This link is being provided for informational/ [...] a test for HCV RNA (test code 52607) is suggested. For additional information please refer to http://TP Therapeutics/faq/BDO63l2 (This link is being provided for informational/ educational purposes only.) Test Performed at: [place], [place] ??[phone] HORACE OLSEN DO,MPH Blood BLOOD SPECIMEN / Unknown 11/27/2022 7:28 AM TEAM PSYCHOLOGIST 11/27/2022 7:29 AM TEAM PSYCHOLOGIST Monae Dozier JUNIOR NETWORK ENGINEER-SIDE TRIMMER LAB - CHEMISTRY O RDERABLES Performing Organization Address [facility]/ZIP Co de Phone Number [address] [address] * (ABNORMAL) HEMOGLOBIN A1C (04/11/2022 11:50 AM [...] children. REPORT COMMENT: FASTING:NO Test Performed at: [facility] ??[phone] MADINA JULIAN MD Blood BLOOD SPECIMEN / Unknown 04/11/2022 11:50 AM CDT 04/11/2022 11:51 AM CDT Delores Bell MD LAB - MANAGER EDITORIAL RY ORDERABLES Performing Organization Address [facility]/ZIP Co de Phone Number [facility] [address] [place] [address] from Last 3 Months or Most Recently Relevant to [place] [address] Tasha Leary Personal/Famil y Self 1970 ([place]) [address] [address] [place] [address]
--- OUTSIDE RECORDS SUMMARY | 2024-12-22 08:30 | XMS_ITS | Encounter Summary ---
Author Organization [facility] [place] Address [address] [place] [address] Care Team Providers Care Delivery Motorcycle Driver Name Role Phone Unavailable Primary Care Provider Unavailabl e Encounter Details Date Type Department Care Team (Late st Contact Info) Description 06/10/2020 Lab Requisition [facility] Laboratory Services S [facility] [address] [place] [address] Graham Patricia MD [address] [place] [address] Encounter for screening for other [...] 2019 NOVEL CORONAVIRUS (COVID-19) PCR DETECTION Routine 06/10/2020 12:00 PM CDT Encounter for screening for other viral diseases documented in this encounter Results * 2019 NOVEL CORONAVIRUS (COVID-19) PCR DETECTION (06/10/2020 12:00 PM CDT) COVID-19 PCR NOT DETECTED NOT DETECTED 06/12/2020 5:12 AM CDT [facility] Comment: A Not Detected (negative) [...] providers and patients using the following websites: https://www.Silver Peak Systems.Ticket Cake/home/Covid-19/HCP/NAAT/fact-sheet2 https://www.Silver Peak Systems.Ticket Cake/home/Covid-19/Patients/NAAT/ fact-sheet2 This test has been authorized by the FDA under an Emergency Use Authorization (EUA) for use by authorized laboratories. Due to the current public health emergency, [employer] is receiving a high volume of samples [...] about COVID-19 can be found at the [employer] website: www.Active Mind Technology.Ticket Cake/Covid19. Upper Respiratory Collection / Unknown 06/10/2020 12:00 PM CDT 06/10/2020 4:20 PM CDT Narrative [facility] - 06/12/2020 5:12 AM CDT Performing Organization Information: ?Site ID: [place] ?Name: [facility] ?Address: [address] [address] ?Director: Theodore Cobb D.O., MPH us Graham Patricia MD MICROBIOLOGY - GENERAL ORDERA BLES Final Result [facility] [phone] documented in this encounter Visit Diagnoses Diagnosis Encounter for screening for other viral diseases documented in this encounter
--- OUTSIDE RECORDS SUMMARY | 2024-12-22 08:30 | XMS_ITS | Encounter Summary ---
Author Organization [facility] Address [address] [place] [address] Care Team Providers Care Pie Bakery Laborer Name Role Phone Unavailable Primary Care Provider Unavailabl e Encounter Details Date Type Department Care Team (Late st Contact Info) Description 10/16/2020 Lab Requisition [facility] Laboratory Services S [facility] [address] [place] [address] Graham Patricia MD [address] [facility] [address] [place] [address] Social History Tobacco Use Types [...] 2019 NOVEL CORONAVIRUS (COVID-19) PCR DETECTION Routine 10/16/2020 12:00 PM MANAGER HOUSE documented in this encounter Results * 2019 NOVEL CORONAVIRUS (COVID-19) PCR DETECTION (10/16/2020 12:00 PM MANAGER HOUSE) COVID-19 PCR NOT DETECTED NOT DETECTED 10/18/2020 3:51 AM MANAGER HOUSE [facility] Comment: A Not Detected (negative) test result [...] providers and patients using the following websites: https://www.mediaBunker.Adaptive Ozone Solutions/home/Covid-19/HCP/NAAT/fact-sheet2 https://www.mediaBunker.Adaptive Ozone Solutions/home/Covid-19/Patients/NAAT/ fact-sheet2 This test has been authorized by the FDA under an Emergency Use Authorization (EUA) for use by authorized laboratories. Due to the current public health emergency, [employer] is receiving a high volume of samples [...] Methodology: ??Nucleic Acid Amplification Test (NAAT) includes RT-PCR or TMA ?? Additional information about COVID-19 can be found at the [employer] website: www.Envio Networks/Covid19. Upper Respiratory Collection / Unknown 10/16/2020 12:00 PM MANAGER HOUSE 10/16/2020 9:57 PM MANAGER HOUSE Narrative [facility] - 10/18/2020 3:51 AM MANAGER HOUSE Performing Organization Information: ?Site ID: [place] ?Name: [facility] ?Address: [address] [address] ?Director: Theodore Cobb D.O., MPH Graham Patricia MD MICROBIOLOGY - GENERAL NGOZI CERRATO Final Result [facility] [phone] documented in this encounter Visit Diagnoses Not on filedocumented in this encounter
--- OUTSIDE RECORDS SUMMARY | 2024-12-22 08:30 | XMS_ITS | Encounter Summary ---
Author Organization [facility] Address [address] [place] [address] Care Team Providers Care Yarn Washer Name Role Phone Unavailable Primary Care Provider Unavailabl e Encounter Details Date Type Department Care Team (Late st Contact Info) Description 07/22/2020 Lab Requisition [facility] Laboratory Services S [facility] [address] [facility] [address] [facility] [place] [address] Graham Patricia MD [address] [facility] [address] [place] [address] Encounter for screening for other [...] 2019 NOVEL CORONAVIRUS (COVID-19) PCR DETECTION Routine 07/22/2020 9:30 AM CDT Encounter for screening for other viral diseases documented in this encounter Results * 2019 NOVEL CORONAVIRUS (COVID-19) PCR DETECTION (07/22/2020 9:30 AM CDT) COVID-19 PCR NOT DETECTED NOT DETECTED 07/24/2020 2:18 AM CDT [facility] Comment: A Not Detected (negative) test [...] providers and patients using the following websites: https://www.SumUp.Logical Apps/home/Covid-19/HCP/NAAT/fact-sheet2 https://www.SumUp.Logical Apps/home/Covid-19/Patients/NAAT/ fact-sheet2 This test has been authorized by the FDA under an Emergency Use Authorization (EUA) for use by authorized laboratories. Due to the current public health emergency, [employer] is receiving a high volume of samples [...] about COVID-19 can be found at the [employer] website: www.Wymsee.Logical Apps/Covid19. Upper Respiratory Collection / Unknown 07/22/2020 9:30 AM CDT 07/22/2020 3:24 PM CDT Narrative [facility] - 07/24/2020 2:18 AM CDT Performing Organization Information: ?Site ID: [place] ?Name: [facility] [employer] ?Address: [address] [address] ?Director: Theodore Cobb D.O., MPH us Graham Patricia MD MICROBIOLOGY - GENERAL ORDERA BLES Final Result [facility] [phone] documented in this encounter Visit Diagnoses Diagnosis Encounter for screening for other viral diseases documented in this encounter
--- OUTSIDE RECORDS SUMMARY | 2024-12-22 08:30 | XMS_ITS | Encounter Summary ---
Author Organization [facility] Address [address] [place] [address] Care Team Providers Care Seed Potato Cutter Name Role Phone Unavailable Primary Care Provider Unavailabl e Encounter Details Date Type Department Care Team (Late st Contact Info) Description 06/18/2020 Lab Requisition [facility] Services S [facility] [address] [facility] [address] [place] [address] Graham Patricia MD [address] [facility] [address] [place] [address] Social History Tobacco Use Types [...] 2019 NOVEL CORONAVIRUS (COVID-19) PCR DETECTION Routine 06/18/2020 8:50 AM CDT documented in this encounter Results * 2019 NOVEL CORONAVIRUS (COVID-19) PCR DETECTION (06/18/2020 8:50 AM CDT) COVID-19 PCR NOT DETECTED NOT DETECTED 06/20/2020 3:22 AM CDT [facility] Comment: A Not Detected (negative) test result [...] providers and patients using the following websites: https://www.Coco Communications.Pocket Social/home/Covid-19/HCP/NAAT/fact-sheet2 https://www.Coco Communications.Pocket Social/home/Covid-19/Patients/NAAT/ fact-sheet2 This test has been authorized by the FDA under an Emergency Use Authorization (EUA) for use by authorized laboratories. Due to the current public health emergency, [employer] is receiving a high volume of samples [...] about COVID-19 can be found at the [employer] website: www.Prim’Vision.Pocket Social/Covid19. Upper Respiratory Collection / Unknown 06/18/2020 8:50 AM CDT 06/18/2020 3:21 PM CDT Narrative [facility] - 06/20/2020 3:22 AM CDT Performing Organization Information: ?Site ID: [place] ?Name: [facility] ?Address: [address] [address] ?Director: Theodore Cobb D.O., MPH Graham Patricia MD MICROBIOLOGY - GENERAL NICOLEA BLES Final Result [facility] [phone] documented in this encounter Visit Diagnoses Not on filedocumented in this encounter
--- OUTSIDE RECORDS SUMMARY | 2024-12-22 08:30 | XMS_ITS | Encounter Summary ---
Author Organization [facility] Address [address] [place] [address] Care Team Providers Care Disaster Director Name Role Phone Unavailable Primary Care Provider Unavailabl e Encounter Details Date Type Department Care Team (Late st Contact Info) Description 06/25/2020 Lab Requisition [facility] Laboratory Services S [facility] [address] [place] [address] Graham Patricia MD [address] [facility] [address] [address] [place] [address] Social History [...] 2019 NOVEL CORONAVIRUS (COVID-19) PCR DETECTION Routine 06/24/2020 2:30 PM CDT documented in this encounter Results * 2019 NOVEL CORONAVIRUS (COVID-19) PCR DETECTION (06/24/2020 2:30 PM CDT) COVID-19 PCR NOT DETECTED NOT DETECTED 06/27/2020 5:50 AM CDT [facility] Comment: A Not Detected (negative) test result [...] providers and patients using the following websites: https://www.Darby Smart.Maidou International/home/Covid-19/HCP/NAAT/fact-sheet2 https://www.Darby Smart.Maidou International/home/Covid-19/Patients/NAAT/ fact-sheet2 This test has been authorized by the FDA under an Emergency Use Authorization (EUA) for use by authorized laboratories. Due to the current public health emergency, [employer] is receiving a high volume of samples [...] about COVID-19 can be found at the [employer] website: www.Ideacentric.Maidou International/Covid19. Upper Respiratory Collection / Unknown 06/24/2020 2:30 PM CDT 06/25/2020 1:06 PM CDT Narrative [facility] - 06/27/2020 5:50 AM CDT Performing Organization Information: ?Site ID: [place] ?Name: [employer] ?Address: [address] [address] ?Director: Theodore Cobb D.O., MPH Graham Patricia MD MICROBIOLOGY - GENERAL NICOLEA BLES Final Result [facility] [phone] documented in this encounter Visit Diagnoses Not on filedocumented in this encounter
--- OUTSIDE RECORDS SUMMARY | 2024-12-22 08:30 | XMS_ITS | Encounter Summary ---
Author Organization [facility] Address [address] [place] [address] Care Team Providers Care Equipment Cleaner And Tester Name Role Phone Unavailable Primary Care Provider Unavailabl e Encounter Details Date Type Department Care Team (Late st Contact Info) Description 07/01/2020 Lab Requisition [facility] Laboratory Services S [facility] [address] [place] [address] Graham Patricia MD [address] [facility] [address] [place] [address] Encounter for screening for other [...] 2019 NOVEL CORONAVIRUS (COVID-19) PCR DETECTION Routine 07/01/2020 3:40 PM CDT Encounter for screening for other viral diseases documented in this encounter Results * 2019 NOVEL CORONAVIRUS (COVID-19) PCR DETECTION (07/01/2020 3:40 PM CDT) COVID-19 PCR NOT DETECTED NOT DETECTED 07/03/2020 3:20 AM CDT [facility] Comment: A Not Detected (negative) [...] providers and patients using the following websites: https://www.Infratel.ttwick/home/Covid-19/HCP/NAAT/fact-sheet2 https://www.Infratel.ttwick/home/Covid-19/Patients/NAAT/ fact-sheet2 This test has been authorized by the FDA under an Emergency Use Authorization (EUA) for use by authorized laboratories. Due to the current public health emergency, [employer] is receiving a high volume of samples [...] about COVID-19 can be found at the [employer] website: www.FounderSync.ttwick/Covid19. Upper Respiratory Collection / Unknown 07/01/2020 3:40 PM CDT 07/01/2020 6:07 PM CDT Narrative [facility] - 07/03/2020 3:20 AM CDT Performing Organization Information: ?Site ID: [place] ?Name: [facility] ?Address: [address] [address] ?Director: Theodore Cobb D.O., MPH us Graham Patricia MD MICROBIOLOGY - GENERAL ORDERA BLES Final Result [facility] [phone] documented in this encounter Visit Diagnoses Diagnosis Encounter for screening for other viral diseases documented in this encounter
--- OUTSIDE RECORDS SUMMARY | 2024-12-22 08:30 | XMS_ITS | Encounter Summary ---
Author Organization [facility] Address [address] [place] [address] Care Team Providers Care Web Application Tester Name Role Phone Unavailable Primary Care Provider Unavailabl e Encounter Details Date Type Department Care Team (Late st Contact Info) Description 10/15/2020 Lab Requisition [facility] Laboratory Services [facility] [address] [place] [address] Graham Patricia MD [address] [place] [address] Encounter for screening for other [...] 2019 NOVEL CORONAVIRUS (COVID-19) PCR DETECTION Routine 10/15/2020 6:42 PM FRONT COUNTER CLERK Encounter for screening for other viral diseases documented in this encounter Results * 2019 NOVEL CORONAVIRUS (COVID-19) PCR DETECTION (10/15/2020 6:42 PM FRONT COUNTER CLERK) COVID-19 PCR NOT DETECTED Not Detected 10/16/20 20 1:49 AM FRONT COUNTER CLERK [facility] PERFORMING LAB [facility] 10/16/2020 1:49 AM FRONT COUNTER CLERK [facility] Upper Respiratory Collection / Unknown 10/15/2020 6:42 PM FRONT COUNTER CLERK 10/15/2020 6:42 PM FRONT COUNTER CLERK Narrative [facility] - 10/16/2020 1:49 AM FRONT COUNTER CLERK This test has been authorized by the [...] MICROBIOLOGY - GENERAL ORDERA BLES Final Result [facility]# [id number] [address] [place] [address] documented in this encounter Visit Diagnoses Diagnosis Encounter for screening for other viral diseases documented in this encounter
[2024-12-22 13:37] LABS: Hematocrit 39.6 % (37.0-47.0); Hemoglobin 12.8 g/dL (12.0-15.0); Mean Corpuscular HGB Conc 32.3 g/dl (32-36); Mean Corpuscular Hemoglobin 26.4 pg (26-34); Mean Corpuscular Volume 81.8 fl (80-100); Mean Platelet Volume 12.1 fl (7.4-10.4); Platelet Count Result 286 k/mm3 (150-375); Red Blood Count 4.84 M/mm3 (4.2-5.4); Red Cell Distribution Width 14.6 % (11.5-14.5); White Blood Count 7.6 K/mm3 (4.5-10.0)
[2024-12-22 13:46] LABS: Alanine Aminotransferase 108 U/L (6-35); Albumin Level 4.1 g/dL (3.5-5.1); Alkaline Phosphatase 90 U/L (38-126); Anion Gap 9 mmol/L (4-12); Aspartate Amino Transferase 112 U/L (14-36); Bilirubin,Total 0.4 mg/dL (0.2-1.3); Blood Urea Nitrogen 8 mg/dL (7-17); Carbon Dioxide 23 mmol/L (22-30); Chloride 106 mmol/L (98-107); Cholesterol 193 mg/dL (0-200); Estimated Glomerular Filt Rate > 60; Glucose 117 mg/dL (65-110); HDL Direct 41 mg/dL; Potassium 4.3 mmol/L (3.4-5.0); Sodium 138 mmol/L (137-145); Triglycerides 127 mg/dL (<150)
[2024-12-22 14:01] LABS: LDL Cholesterol Direct 124 mg/dL
[2024-12-22 15:11] LABS: Hemoglobin A1C 6.6 % (<5.7)
== END 2024-12-22 08:22 | disposition home or self-care (01) ==
LOC: ANHGOSHLAB 08:22
PROVIDERS: PCP Family Medicine; Visit Provider Family Medicine
DX: E78.5 Hyperlipidemia, unspecified (principal); I10 Essential (primary) hypertension; E66.9 Obesity, unspecified; R73.03 Prediabetes; Z79.899 Other long term (current) drug therapy
CPT/HCPCS: 36415; 80053; 80061; 83036; 84443; 85027

== ENCOUNTER 2025-05-03 08:12 | Outpatient (CLI) | payer BC, SELFPAY ==
--- OUTSIDE RECORDS SUMMARY | 2025-05-03 08:17 | XMS_ITS | Data Portability ---
Author Organization [place] [facility] [employer], Main Office Address [address] [place] [address] Care Team Providers Care Machine Quilt Stuffer Name Role Phone LUIS M FORBES Primary Care Provider Assessment No assessment recorded. Plan of Treatment Reminders Order Date Submit Date Provider Last Modified By Organization Details Last Modified Time Details Appointments None recorded. Lab None recorded. Referral None recorded. Procedures None recorded. Surgeries None recorded. Imaging None recorded. Medication Orders amlodipine 5 mg tablet 2022 023 [facility] [address] [facility], [place], [address], 11:15:28 Patient TargetsNo targets recorded. Patient Instructions Encounter Date Encounter Id Patient Instructions Last Modified By Organization Details Last Modified Time 07/01/2023 [id number] which she will undergo balloon assisted septoplasty Not available 07/01/2023 15:52:48 08/26/2023 [id number] she will return as needed Not available 08/26/2023 15:39:33 Reason for Referral None Reported. Results Created Date Observation Date Name Description Value Unit Range Abnormal Flag Note LastModifiedBy Organization Detail LastModifiedTime 06/10/[address], maxil lofac ial, w/o contr ast [facility] [address], [place] [address] Patien t Name: SHEA MORALES Access ion #: [id number] Sex: F : 1970 1 Locati [...] FINDIN GS: Page 1 of 2 [facility] t Name: SHEA MORALES Access ion #: [id number] Sex: F : 1970 1 Exam [...] PM (CT) Page 2 of 2 [email or web address] [facility] (Imaging) [address] [place], [address], 06/14/2023 10:04:49 06/10/[address], sinus es, w/o contr ast No observ ation record ed. [email or web address] [facility] [address] [place] [address] , [place], [address], 06/14/2023 10:05:33 06/16/[address], sinus es, w/o contr ast No observ ation record ed. [email or web address] [facility] [address] [place] [address] , [place], [address], 06/17/2023 14:25:40 08/17/20 23 08/17/2023 elect gilma lopezgr am No observ ation record ed. [email or web address] Not Available 2022 12:17:07 Result Notes None recorded. Problems Name Problem SNOMED Code Status Onset Date Resolution Date Notes Provider Name and Address Organization Details Recorded Time Family history of diabetes mellitus 382652058 Active 2022 Not Available [facility] 3 08:05:43 History of polyp of colon 327089255 Active 2022 Not Available [facility] 3 08:05:43 Essential hypertension 38829141 Active 2022 Not Available [facility] 3 08:05:43 Acne 60009452 Active 2022 Not Available [facility] 3 08:05:43 Chronic sinusitis 41639574 Active 2022 Not Available [facility] 3 08:05:43 Deviated nasal septum 440848349 Active 2022 Not Available [facility] 3 08:05:43 Problem Notes None recorded. Procedures Surgical History Date Name Laterality Status Provider Name and Address Organization Details Recorded Time Partial hysterectomy completed Not Available [facility] 01/20/2023 10:41:20 Breast reduction completed Not Available [facility] 01/20/2023 10:41:20 colonoscopy completed Not Available [facility] 01/20/2023 10:41:20 tonsillectomy completed AUDELIA Posada [facility] [employer] [facility] 05/27/2023 15:56:31 nasal septoplasty completed Ashley Marcus RN [facility] [employer] [facility] 08/24/2023 11:33:58 Imaging Results None recorded. Procedure Notes None recorded. Medical Equipment None [...] EYE 4 TIMES DAILY FOR ONE WEEK BEGINNIN G AFTER SURGERY 08/26 completed Not Available Not [...] % 99 % 99 /min 98 [degF] 42385.5 5 g 120 mm[Hg] 67 mm[Hg] Not Available [facility] 3 10:41:43 Date Recorded Body weight Body mass index (BMI) Body height Body temperature Heart rate Oxygen saturation Oxygen saturation in Arterial blood by Pulse oximetry Systolic blood pressure Diastolic blood pressure Provider Name and Address Organization Details Last Updated DateTime 3 82526.6 3 g 30.9 kg/m2 162.56 cm 97.4 [degF] 81 /min 99 % 99 % 132 mm[Hg] 84 mm[Hg] Tracy Russo RN [facility] 3 10:47:38 Date Recorded Body height Body mass index (BMI) Body weight Body temperature Provider Name and Address Organization Details Last Updated DateTime 05/27/2023 162.56 cm 31.7 kg/m2 06603.43 g 97.7 [degF] Ashley Marcus RN [facility] [employer] 05/27/2023 15:55:37 Date Recorded Body height Body mass index (BMI) Body weight Body temperature Provider Name and Address Organization Details Last Updated DateTime 07/01/2023 162.56 cm 31.9 kg/m2 35131.18 g 97.8 [degF] Ashley Marcus RN [facility] [employer] 07/01/2023 15:39:38 Date Recorded Body height Body mass index (BMI) Body weight Provider Name and Address Organization Details Last Updated DateTime 08/26/2023 162.56 cm 30.6 kg/m2 53113.44 g Varsha Slaughter [employer] 08/26/2023 15:20:49 Social History Question Answer Notes LastModified by [employer] Details LastModified Time Tobacco Smoking Status Never Smoker Nola He [place], [place] [employer] [facility] 08/26/2023 15:11:40 What Is Your Level Of Caffeine Consumption? Occasional Information not available 03/23/2023 Do You Use Your Seat Belt Or Car Seat Routinely? Yes Information not available 08/26/2023 Do You Participate In Social Media? Yes Information not available 08/26/2023 Sex: Unknown Functional Status Question Answer Note LastModified by [employer] Details LastModified Time Do you use any illicit or recreational drugs? No Information not available 08/26/2023 What is your level of alcohol consumption? Occasional Information not available 03/23/2023 Mental Status Question Answer Note LastModified by Organization D etails LastModified Time Do you feel stressed (tense, restless, nervous, or anxious, or unable to sleep at night)? [id number] Information not available 08/26/2023 Family History Relationship Description Onset Age of this Age Resolved Age Notes LastModified by Organization Details LastModified Time Mother Diabetes mellitus [id number] Not available 01/20/2023 10:41:21 Maternal Grandmother Diabetes mellitus [id number] Not available 01/20/2023 10:41:21 Maternal Grandmother Essential [...] SNOMED-CT Code Diagnosis ICD10 Code Diagnosis Note [id number] Key Fontana MD [facility] Primary Care [place] turn[place] [address] [place] [address] 12/11/2022 00:00:00 12/11/2022 17:59:33 [id number] Key Fontana MD [facility] Primary Care [place] turner [address] [place] [address] 03/23/2023 10:41:10 03/23/2023 11:17:56 Essential hypertension 78818339 I10 Stable with current regimen.As ymptomatic at this timeEncour aged pt to increase water intake, reduce caffeine intake, exercise regularly, decrease/e liminate sodium intake, work on weight loss and stress reductionW ill continue to monitor closelyNor vasc 5mg dailyHctz 12.5mg daily (on hold while taking spironolac tone) Acne 88000974 L70.9 Improving per patient, with spironolac tone (prescribe d by derm).Cont inue with hypoallerg enic face soap and lotion and products for face with gentle exfoliatio n but careful not to over wash/scrub . Hypoallerg enic products, dietary precaution s reviewed. Do not pick at lesions. Discussed some remaining acne normal, even with tx. [id number] Toi Woods MD [facility] [place] [address] [place] [address] 05/27/2023 15:38:04 06/14/2023 12:16:30 Deviated nasal septum 286070909 J34.2 Chronic sinusitis 577115 00 J32.9 [id number] Toi Woods MD [facility] [place] [place] [address] [place] [address] 07/01/2023 15:22:32 07/01/2023 15:54:13 Deviated nasal septum 238149293 J34.2 Chronic sinusitis 236337 00 J32.9 [id number] Toi Woods MD [facility] [place] [place] [address] [place] [address] 08/26/2023 15:10:03 08/26/2023 15:41:27 Deviated nasal septum 777074436 J34.2 Health Concerns Section Related Observation LastModified by Organization Detai ls LastModified Time None Recorded Concern Status LastModified by Organization Details LastModified Time None Recorded Advance Directives Directive None Recorded Payers Insurance Date Sequence Insurance Name Policy Number Policy Dasilva Covered Member ID Dasilva Member ID Guarantor Name 08/26/2023 1 [employer] [id number] Tasha Morales [id number] Tasha Morales Notes Date Note Type Note Provider Name and Address Organization Details Recorded Time 03/23/2023 text/html 03/23/23: 1. Pt in office for 4 month f/u appt. Pt denies any new medical concerns at this time. 12/11/22: 1. Pt in office to establish care. Was previously seeing Dr. Bell at [facility].2. Pt states she takes norvasc and hctz for htn, but the hctz is on hold while her acne is being tx'd with spironolactone by derm.3. Pt states she had partial hyst 3yrs ago (2019) d/t fibroids.4. Pt states she had breast reduction in 2020 as well. Luis M Forbes, LABOR ECONOMIST [address], [place], [address], [employer] 03/23/2023 18:28:52 05/27/2023 text/html this patient has a year's history of sinusitis and has been on antibiotics for this in the past she does have facial pain and headaches she takes many wnjw-fzy-iuqgwzk medications thinks that some of it may be worse during spring and fall. Toi Woods MD [address], [place], [address], [employer] 05/27/2023 16:11:35 07/01/2023 text/html the CT scan demonstrates right septal deviation which was known. Otherwise there was a small maxillary sinus cyst which does not require intervention Toi Woods MD [address], [place], [address], [employer] 07/01/2023 15:53:08 08/26/2023 text/html Patient is doing very well following septoplasty Toi Woods MD [address] [facility], [place], [address], [place] [facility] [employer] [facility] 08/26/2023 15:39:52 OBGyn Episode No OBEpisode recorded.
--- OUTSIDE RECORDS SUMMARY | 2025-05-03 08:17 | XMS_ITS | Encounter Summary ---
Author Organization [facility] Address [address] [place] [address] Care Team Providers Care Electrician Apprentice Name Role Phone Unavailable Primary Care Provider Unavailabl e Encounter Details Date Type Department Care Team (Late st Contact Info) Description 07/22/2020 Lab Requisition [facility] Laboratory Services [facility] [address] [place] [address] Graham Patricia MD [address] [place] [address] Encounter for screening for other [...] 07/24/2020 2:18 AM CDT [facility] Comment: A Not Detected (negative) test result for this test means that SARS- CoV-2 RNA was not present in the specimen above the limit of detection. A negative result does not rule out the possibility of COVID-19 and should not be used as the sole basis for treatment or patient management decisions. If COVID-19 is still suspected, based on exposure [...] providers and patients using the following websites: https://www.[employer].ION Signature/home/Covid-19/HCP/NAAT/fact-sheet2 https://www.[employer] Signature/home/Covid-19/Patients/NAAT/ fact-sheet2 This test has been authorized by the FDA under an Emergency Use Authorization (EUA) for use by authorized laboratories. Due to the current public health emergency, [facility] is receiving a high volume of samples [...] including collection of an additional specimen. Methodology: Nucleic Acid Amplification Test (NAAT) includes PCR or TMA Additional information about COVID-19 can be found at the [employer] website: www.[employer].ION Signature/Covid19. Upper Respiratory Collection / Unknown 07/22/2020 9:30 AM CDT 07/22/2020 3:24 PM CDT Narrative [facility] - 07/24/2020 2:18 AM CDT Performing Organization Information: Site ID: [place] Name: [facility] Address: [address] [address] Director: Theodore Cobb D.O., MPH Graham Patricia MD MICROBIOLOGY - GENERAL ORDERCierra ROJAS Final Result [facility] [phone] documented in this encounter Visit Diagnoses Diagnosis Encounter for screening for other viral diseases documented in this encounter
--- OUTSIDE RECORDS SUMMARY | 2025-05-03 08:17 | XMS_ITS | Encounter Summary ---
Author Organization [facility] Address [address] [place] [address] Care Team Providers Care Surfacer Name Role Phone Unavailable Primary Care Provider Unavailabl e Encounter Details Date Type Department Care Team (Late st Contact Info) Description 10/21/2020 Lab Requisition [facility] Laboratory Services [facility] [address] [place] [address] Graham Patricia MD [address] [place] [address] Social History Tobacco Use Types [...] (COVID-19) PCR DETECTION Routine 10/21/2020 10:29 AM SATURATION EQUIPMENT OPERATOR documented in this encounter Results * 2019 NOVEL CORONAVIRUS (COVID-19) PCR DETECTION (10/21/2020 10:29 AM SATURATION EQUIPMENT OPERATOR) COVID-19 PCR NOT DETECTED Not Detected 10/22/20 20 4:05 AM SATURATION EQUIPMENT OPERATOR [facility] [employer] [facility] PERFORMING LAB [facility] 10/22/2020 4:05 AM SATURATION EQUIPMENT OPERATOR [facility] [employer] [facility] Upper Respiratory Collection / Unknown 10/21/2020 10:29 AM SATURATION EQUIPMENT OPERATOR 10/21/2020 10:47 PM SATURATION EQUIPMENT OPERATOR Narrative [facility] - 10/22/2020 4:05 AM SATURATION EQUIPMENT OPERATOR This test has been authorized by the FDA under an Emergency Use Authorization for use by authorized laboratories. This test has been validated in accordance with the FDA's guidance regarding Coronavirus Disease-2019 testing. [employer] specimen types and timing for peak viral levels during infection have not been determined. A negative RT-PCR result does not rule out infection with the 2019-Novel Coronavirus. Graham Patricia MD MICROBIOLOGY - GENERAL ORDERA [facility] Final Result [facility] LABOR[facility]ORY SERVICES [facility]# [id number] [address] [place] [address] documented in this encounter Visit Diagnoses Not on filedocumented in this encounter
--- OUTSIDE RECORDS SUMMARY | 2025-05-03 08:17 | XMS_ITS | Clinical Summary ---
Author Organization [facility] Address [address] [place] [address] Care Team Providers Care Director Of [employer] Name Role Phone Unavailable Primary Care Provider Unavailabl e Source Comments [facility],non-owned Affiliates and Associated Physician Practices is amultiple site organization consisting of ambulatory clinics and hospital sitesin [place], [place], [place] and [place]. This disclosure is being madepursuant to the Care Everywhere program and may not contain all information available regarding this patient. Last updated 18.[facility] Allergies No known active allergies Medications * Be aware that medications may not be up to date on this document. Alwaysverify current medications with the patient. Multiple Vitamin (MULTI VITAMIN DAILY PO) Active [...] daily Active clobetasol (TEMOVATE) 0.05 % solution 2 Active hydroquinone (LUSTRA; ELDOQUIN) 4 % cream APPLY CREAM TOPICALLY AT BEDTIME TO DARK SPOTS FOR UP TO 3 MONTHS 2 Active spironolactone (ALDACTONE) 50 MG tablet 2 Active tretinoin (RETIN-A) 0.025 % cream APPLY CREAM TOPICALLY AT BEDTIME TO FACE 2 Active amLODIPine (NORVASC) 5 MG tabletIndications :Essential hypertension Take 1 (one) tablet by mouth once daily 90 tablet 3 2 Active triamcinolone acetonide (Kenalog) 0.1 % ointment APPLY A THIN LAYER TO THE AFFECTED AREA(S) OF ECZEMA TWICE DAILY. NEVER TO FACE 3 Active minoxidil (Loniten) 2.5 MG tablet Take 1 (one) tablet by mouth once daily 4 Active estradiol (Vivelle-Dot) 0.1 MG/24HR patchIndications: Vasomotor Symptoms of Menopause APPLY 1 PATCH TOPICALLY EVERY 3 DAYS. Reasons: Night Sweats and Hot Flashes Associated with Menopause 8 patch 12 5 Active Active Problems Problem Noted Date Diagnosed Date [...] 01/18/2020 Sickle cell trait 05/20/2018 01/18/2020 Immunizations Immunization Administration Dates Next Due Yefriid Moderna primary monova lent 12+ yr 0.5mL [...] exercise at this level? 30 min 01/12/2022 Comments No Sex and Gender Information Value Date Recorded Sex Assigned at Female 09/30/2020 2:47 PM APPRAISAL COORDINATOR Legal Sex Female 10:28 AM CDT Gender Identity Female 09/30/2020 2:46 PM APPRAISAL COORDINATOR Sexual Orientation Straight 09/30/2020 2: 47 PM APPRAISAL COORDINATOR Occupation Industry Job Start Date Job End Date RN Not on file Not on file Not on file Last Filed Vital Signs Vital Sign Reading Time Taken Comments Blood Pressure 144/86 11/24/2024 7:42 AM APPRAISAL COORDINATOR Pulse 85 11/24/2024 7:42 AM APPRAISAL COORDINATOR Temperature 36.4 C (97.5 F) 04/13/2023 12:05 PM CDT Respiratory Rate 17 04/13/2023 12:2 0 PM CDT Oxygen Saturation 77% 04/13/2023 12: 20 PM CDT Inhaled Oxygen Concentration - - Weight 84.3 kg (185 lb 12.8 oz) 11/24/2024 7:42 AM APPRAISAL COORDINATOR Height 160 cm (5' 3) 11/24/2024 7:42 AM APPRAISAL COORDINATOR Body Mass Index 32.91 11/24/2024 7:42 AM APPRAISAL COORDINATOR Plan of Treatment Health Maintenance Due Date [...] (4 - season) 2024 09/26/2021, 01/24/2021, 12/27/2020 DEPRESSION SCREENING 11/22/2024 04/20/2024, 11/12/2023, 01/12/2022 SCREENING FOR DIABETES 04/11/2025 , 02/19/2022, 01/12/2022, Additional history exists INFLUENZA VACCINE (Season Ended) 2025 09/08/2022, 08/22/2021, 08/22/2020, Additional history exists MAMMOGRAM 09/22/2025 09/22/2024, 08/24, 09/21/2022, Additional history exists COLON MONITORING 04/13/2026 04/13/2023, , 10/01/2022, Additional history exists Colorectal Cancer Screening 04/13/2026 LIPID TESTING 11/12/2028 11/12/2023, 01/22, 03/21/2021, Additional history exists DTAP/TDAP/TD VACCINES (2 [...] complete this topic MENINGOCOCCAL (Group B) VACCINE SHARED DECISION-MAKING Aged Out No longer eligible based on patient's age to complete this topic MENINGOCOCCAL GROUPS A/C/Y/W VACCINE Aged Out No longer eligible based on patient's age to complete this topic Procedures Procedure Name Priority Date/Time Associated Diagnosis Comments MAMMO BILAT SCREENING W JASIEL Routine 09/22/2024 7:12 AM CDT Encounter for screening mammogram for malignant neoplasm of breast LIPID PROFILE W LDL/HDL RATIO Routine 11/12/2023 8:14 AM APPRAISAL COORDINATOR Well woman exam with routine gynecological exam Hormone replacement therapy (HRT) ENDOSCOPY, COLON, SCREENING Routine 04/13/2023 10:42 AM CDT HEPATITIS SCREEN ACUTE Routine 11/27/2022 7:28 AM APPRAISAL COORDINATOR Screening for venereal disease HIV-1 HIV-2 ANTIBODY + HIV P24 AG PANEL Routine 11/27/2022 7:28 AM APPRAISAL COORDINATOR Screening for venereal disease HEMOGLOBIN A1C Routine 04/11/2022 11:50 AM CDT Pre-diabetes from Last 3 Months or Most Recently Relevant to Health Maintenance Results * Mammo Bilat Screening W Jasiel (09/22/2024 7:12 AM CDT) Anatomical Region Laterality Modality Breast Bilateral Mammography 09/22/2024 8:19 AM CDT Impressions 09/22/2024 8:20 AM CDT IMPRESSION: Annual screening mammography is recommended. OVERALL FINAL ASSESSMENT: BI-RADS Category 2: Benign. > Interpreting Provider: Ashli Beck MD on 09/22/2024 8:20 AM Narrative 09/22/2024 8:20 AM CDT EXAMINATION: BILATERAL DIGITAL SCREENING MAMMOGRAM AND BILATERAL BREAST TOMOSYNTHESIS HISTORY: Screening. COMPARISON: Serial examinations dating back to 09/14/2020 TECHNIQUE: BILATERAL digital breast tomosynthesis (DBT) and synthetic 2D digital mammogram images were obtained (bilateral craniocaudal and mediolateral oblique projections) including computer aided detection (CAD.) BREAST PARENCHYMAL COMPOSITION: Category B: There are scattered areas of fibroglandular density. MAMMOGRAM FINDINGS: There is no suspicious finding in either breast. There are stable expected findings of bilateral reduction mammoplasty. Overall, there has been no significant interval change. Monae CEDILLO MAMMO ORDERABLES Final Re sult * (ABNORMAL) LIPID PROFILE W LDL/HDL RATIO (11/12/2023 8:14 AM APPRAISAL COORDINATOR) Cholesterol 182 100 - 199 mg/dL [facility] [...] - 3.2 ratio [facility] ACCOUNT BILL Comment: LDL/HDL Ratio Men Women 1/2 Avg.Risk 1.0 1.5 Avg.Risk 3.6 3.2 2X Avg.Risk 6.2 5.0 3X Avg.Risk 8.0 6.1 FASTING Blood BLOOD SPECIMEN / Unknown 11/12/2023 8:14 AM APPRAISAL COORDINATOR 11/12/2023 Narrative Resulting Agency Comment Lab Testing performed at: [facility] [address] [facility] [id number] Monae CEDILL[facility] LAB - CHEMISTRY ORDERABLE S Final Result [facility] ACCOUNT BILL [address] [place] [address] * ENDOSCOPY, COLON, SCREENING (04/13/2023 10:42 AM CDT) Report Endoscopy POC _ Patient Name: Tasha Leary Procedure Date: 04/13/2023 10:42 AM Date of : 1970 Admit Type: Outpatient Age: 52 Gender: Female Attending MD: Marlene Flores MD, [id number] _ Procedure: Colonoscopy Indications: High risk colon cancer surveillance: Personal history of colonic polyps, ; Reveiw of prior poylpectomy site Providers: Marlene Flores MD (Doctor) Referring MD: Delores Bell MD (Referring MD) Medicines: Monitored Anesthesia Care Complications: No immediate complications. _ Estimated Blood Loss: Estimated blood loss: none. Procedure: Pre-Anesthesia Assessment: - Prior to the procedure, a History and Physical was performed, and patient medications and allergies were reviewed. The patient's tolerance of previous anesthesia was also reviewed. The risks and benefits of the procedure and the sedation options and risks were discussed with the patient. All questions were answered, and informed consent was obtained. Prior Anticoagulants: The patient has taken no anticoagulant or antiplatelet agents. After reviewing the risks and benefits, the patient was deemed in satisfactory condition to undergo the procedure. After I obtained informed consent, the scope was passed under direct vision. Throughout the procedure, the patient's blood pressure, pulse, and oxygen saturations were monitored continuously. The Colonoscope was introduced through the anus and advanced to the terminal ileum. The colonoscopy was performed without difficulty. The patient tolerated the procedure well. The quality of the bowel preparation was evaluated using the BBPS ([place] Bowel Preparation Scale) with scores of: Right Colon = 3, Transverse Colon = 3 and Left Colon = 3 (entire mucosa seen well with no residual staining, small fragments of stool or opaque liquid). The total BBPS score equals 9. Findings: The perianal and digital rectal examinations were normal. External and internal hemorrhoids were found during retroflexion. The hemorrhoids were small. A 3 mm polyp was found in the hepatic flexure. The polyp was sessile. The polyp was removed with a cold biopsy forceps. Resection and retrieval were complete. A tattoo was seen at the hepatic flexure. The tattoo site appeared normal. A small post polypectomy scar was found at the hepatic flexure. There was no evidence of the previous polyp. Multiple small-mouthed diverticula were found in the sigmoid colon. The exam was otherwise without abnormality on direct and retroflexion views. The terminal ileum appeared normal. _ Impression: - External and internal hemorrhoids. - One 3 mm polyp at the hepatic flexure, removed with a cold biopsy forceps. Resected and retrieved. - Post-polypectomy scar at the hepatic flexure. - Diverticulosis in the sigmoid colon. - The examination was otherwise normal on direct and retroflexion views. - The examined portion of the ileum was normal. Recommendation: - Await pathology results. - Repeat colonoscopy in 3 years for surveillance. Procedure Code(s): --- Professional --- 25281, Colonoscopy, flexible; with biopsy, single or multiple --- Technical --- 39947, Colonoscopy, flexible; with biopsy, single or multiple Diagnosis Code(s): --- Professional --- Z86.010, Personal history of colonic polyps K64.8, Other hemorrhoids D12.3, Benign neoplasm of transverse colon (hepatic flexure or splenic flexure) Z98.890, Other specified postprocedural states K57.30, Diverticulosis of large intestine without perforation or abscess without bleeding --- Technical --- Z86.010, Personal history of colonic polyps K64.8, Other hemorrhoids D12.3, Benign neoplasm of transverse colon (hepatic flexure or splenic flexure) Z98.890, Other specified postprocedural states K57.30, Diverticulosis of large intestine without perforation or abscess without bleeding CPT copyright 2020 [employer]. All rights reserved. The codes documented in this report are preliminary and upon chocolate refining roller review may be revised to meet current compliance requirements. _ Marlene Flores MD 04/13/2023 12:07:15 PM Number of Addenda: 0 Note Initiated On: 04/13/2023 10:42 AM [facility] 04/13/2023 10:4 2 AM CDT Marlene Flores MD GI PROCEDURE ORDERABLES Edite d Result - Final [facility] [place] [address] * HIV-1 HIV-2 ANTIBODY + HIV P24 AG PANEL (11/27/2022 7:28 AM APPRAISAL COORDINATOR) [facility] HIV Screen 4th Generation w Reflex NON-REACT FRANCISCA NON-REACT FRANCISCA [facility] Comment: HIV-1 antigen and HIV-1/HIV-2 antibodies were not detected. There is no laboratory evidence of HIV infection. PLEASE NOTE: This information has been disclosed to you from records whose confidentiality may be protected by state law. If your state requires such protection, then the state law prohibits you from making any further disclosure of the information without the specific written consent of the person to whom it pertains, or as otherwise permitted by law. A general authorization for the release of medical or other information is NOT sufficient for this purpose. For additional information please refer to http://education.[employer]/faq/JNY691 (This link is being provided for informational/ educational purposes only.) The performance of this assay has not been clinically validated in patients less than 2 years old. Test Performed at: [facility] [address] [place] [address] HORACE OLSEN DO,MPH Blood BLOOD SPECIMEN / Unknown 11/27/2022 7:28 AM APPRAISAL COORDINATOR 11/27/2022 7:29 AM APPRAISAL COORDINATOR Monae Dozier MULTI CRAFT MAINTENANCE TECHNICIAN-[facility] - CHEMISTRY ORDERABLE S Final Result Performing Organization Address [facility] de Phone Number [facility] [address] [place] [address] * HEPATITIS SCREEN ACUTE (11/27/2022 7:28 AM APPRAISAL COORDINATOR) Hepatitis A Virus Antibody IgM NON-REACTI VE NON-REACT FRANCISCA [facility] Comment: For additional information, please refer to http://GameOn.[employer]/faq/BUM066 (This link is being provided for informational/ [...] a test for HCV RNA (test code 45448) is suggested. For additional information please refer to http://GameOn.[employer]/faq/SGV62e4 (This link is being provided for informational/ educational purposes only.) Test Performed at: [facility] [address] [place] [address] HORACE OLSEN DO,MPH Blood BLOOD SPECIMEN / Unknown 11/27/2022 7:28 AM APPRAISAL COORDINATOR 11/27/2022 7:29 AM APPRAISAL COORDINATOR Monae Correabuckmookie [facility] - CHEMISTRY ORDERABLE S Final Result Performing Organization Address [facility] Co de Phone Number [facility] [address] [place] [address] * (ABNORMAL) HEMOGLOBIN A1C (04/11/2022 11:50 AM [...] children. REPORT COMMENT: FASTING:NO Test Performed at: [facility] [address] MADINA JULIAN MD Blood BLOOD SPECIMEN / Unknown 04/11/2022 11:50 AM CDT 04/11/2022 11:51 AM CDT us Delores Bell MD LAB - CHEMISTRY ORDER BELEN Final Result [address] [address] from Last 3 Months or Most Recently Relevant to Health Maintenance [place] [address] PHILLIP
--- OUTSIDE RECORDS SUMMARY | 2025-05-03 08:17 | XMS_ITS | Clinical Summary ---
Author Organization [facility] Address [address] [place] [address] Phone Care Team Providers Care Anti Tank Missileman Name Role Phone Unavailable Primary Care Provider [...] (1 of 3 - 19+ 3-dose series) 11/22 HPV/Cotest (21-29) 1992 CERVICAL CANCER SCREENING 2001 HPV/Cotest (30-65) 2001 PAP SMEAR 2001 COLORECTAL SCREENING 2016 Colorectal Cancer Screening 2016 FIT-DNA Q 3 years 2016 FIT/FOBT Q 1 year 2016 Flex Sig/CT Colonography Q 5 years 2016 BREAST CANCER SCREENING 09/14/2021 09/14/2020 ZOSTER VACCINE (1 of 2) 2021 INFLUENZA VACCINE (#1) 2024
--- OUTSIDE RECORDS SUMMARY | 2025-05-03 08:17 | XMS_ITS | Encounter Summary ---
Author Organization [facility] Address [address] [place] [address] Care Team Providers Care Bailer Tenders Supervisor Name Role Phone Unavailable Primary Care Provider Unavailabl e Encounter Details Date Type Department Care Team (Late st Contact Info) Description 10/15/2020 Lab Requisition [facility] Laboratory Services S [facility] [address] [place] [address] Graham Patricia MD [address] [facility] [address] [place] [address] Encounter for screening for other [...] (COVID-19) PCR DETECTION Routine 10/15/2020 6:42 PM BENEFIT DIRECTOR Encounter for screening for other viral diseases documented in this encounter Results * 2019 NOVEL CORONAVIRUS (COVID-19) PCR DETECTION (10/15/2020 6:42 PM BENEFIT DIRECTOR) COVID-19 PCR NOT DETECTED Not Detected 10/16/20 20 1:49 AM BENEFIT DIRECTOR [facility] PERFORMING LAB [facility] 10/16/2020 1:49 AM BENEFIT DIRECTOR [facility] Upper Respiratory Collection / Unknown 10/15/2020 6:42 PM BENEFIT DIRECTOR 10/15/2020 6:42 PM BENEFIT DIRECTOR Narrative [facility] - 10/16/2020 1:49 AM BENEFIT DIRECTOR This test has been authorized by the [...] MICROBIOLOGY - GENERAL ORDERA BLES Final Result [facility]# [id number] [address] [place] [address] documented in this encounter Visit Diagnoses Diagnosis Encounter for screening for other viral diseases documented in this encounter
--- OUTSIDE RECORDS SUMMARY | 2025-05-03 08:17 | XMS_ITS | Encounter Summary ---
Author Organization [facility] Address [address] [place] [address] Care Team Providers Care Headline Writer Name Role Phone Unavailable Primary Care Provider Unavailabl e Encounter Details Date Type Department Care Team (Late st Contact Info) Description 10/16/2020 Lab Requisition [facility] Laboratory Services S [facility] [address] [place] [address] [place] [address] Graham Patricia MD [address] [facility] [address] [place] [address] Social History Tobacco Use Types [...] (COVID-19) PCR DETECTION Routine 10/16/2020 12:00 PM MOBILE SOLUTIONS ARCHITECT documented in this encounter Results * 2019 NOVEL CORONAVIRUS (COVID-19) PCR DETECTION (10/16/2020 12:00 PM MOBILE SOLUTIONS ARCHITECT) COVID-19 PCR NOT DETECTED NOT DETECTED 10/18/2020 3:51 AM MOBILE SOLUTIONS ARCHITECT [facility] Comment: A Not Detected (negative) test [...] providers and patients using the following websites: https://www.[employer]high [employer].In[employer]ative [employer]s/home/Covid-19/HCP/NAAT/fact-sheet2 https://www.[employer]/home/Covid-19/Patients/NAAT/ fact-sheet2 This test has been authorized by the FDA under an Emergency Use Authorization (EUA) for use by authorized laboratories. Due to the current public health emergency, [facility] is receiving a high volume of samples [...] Methodology: Nucleic Acid Amplification Test (NAAT) includes RT-PCR or TMA Additional information about COVID-19 can be found at the [facility] website: www.Bandwdth Publishing/Covid19. Upper Respiratory Collection / Unknown 10/16/2020 12:00 PM MOBILE SOLUTIONS ARCHITECT 10/16/2020 9:57 PM MOBILE SOLUTIONS ARCHITECT Narrative [facility] - 10/18/2020 3:51 AM MOBILE SOLUTIONS ARCHITECT Performing Organization Information: Site ID: [place] Name: [facility] Address: [address] [address] Director: Theodore Cobb D.O., MPH Graham Patricia MD MICROBIOLOGY - GENERAL ORDERA BLES Final Result [facility] [place] [phone] documented in this encounter Visit Diagnoses Not on filedocumented in this encounter
--- OUTSIDE RECORDS SUMMARY | 2025-05-03 08:17 | XMS_ITS | Encounter Summary ---
Author Organization [facility] Address [address] [place] [address] Care Team Providers Care Energy Assistant Name Role Phone Unavailable Primary Care Provider Unavailabl e Encounter Details Date Type Department Care Team (Late st Contact Info) Description 06/18/2020 Lab Requisition [facility] Laboratory Services [facility] [address] [place] [address] Graham Patricia MD [address] [facility] [address] [place] [address] Social History Tobacco Use Types [...] 06/20/2020 3:22 AM CDT [facility] Comment: A Not Detected (negative) test [...] providers and patients using the following websites: https://www.Written.[employer]a/home/Covid-19/HCP/NAAT/fact-sheet2 https://www.Written.[employer]/home/Covid-19/Patients/NAAT/ fact-sheet2 This test has been authorized by the FDA under an Emergency Use Authorization (EUA) for use by authorized laboratories. Due to the current public health emergency, [facility] is receiving a high volume of samples [...] about COVID-19 can be found at the [employer] website: www.[employer]/Covid19. Upper Respiratory Collection / Unknown 06/18/2020 8:50 AM CDT 06/18/2020 3:21 PM CDT Narrative [facility] - 06/20/2020 3:22 AM CDT Performing Organization Information: Site ID: [place] Name: [facility] Address: [address] [address] Director: Theodore Cobb D.O., MPH Graham Patricia MD MICROBIOLOGY - GENERAL ORDERA BLE Final Result [facility] [place] [phone] documented in this encounter Visit Diagnoses Not on filedocumented in this encounter
--- OUTSIDE RECORDS SUMMARY | 2025-05-03 08:17 | XMS_ITS | Encounter Summary ---
Author Organization [facility] Address [address] [place] [address] Care Team Providers Care Director Of Radiology Name Role Phone Unavailable Primary Care Provider Unavailabl e Encounter Details Date Type Department Care Team (Late st Contact Info) Description 07/08/2020 Lab Requisition [facility] Laboratory Services [facility] [address] [place] [address] Graham Patricia MD [address] [place] [address] Encounter for screening for other [...] 07/10/2020 2:49 AM CDT [facility] Comment: A Not Detected (negative) test result [...] providers and patients using the following websites: https://www.M[employer]/home/Covid-19/HCP/NAAT/fact-sheet2 https://www.[employer]/home/Covid-19/Patients/NAAT/ fact-sheet2 This test has been authorized by the FDA under an Emergency Use Authorization (EUA) for use by authorized laboratories. Due to the current public health emergency, [facility] is receiving a high volume of samples [...] about COVID-19 can be found at the [facility] website: www.Drillster.[employer]/Covid19. Upper Respiratory Collection / Unknown 07/08/2020 3:00 PM CDT 07/08/2020 6:48 PM CDT Narrative [facility] - 07/10/2020 2:49 AM CDT Performing Organization Information: Site ID: [place] Name: [facility] Address: [address] [address] Director: Theodore Cobb D.O., MPH Graham Patricia MD [facility]OLOGY [facility] Final Result [facility] [place] [phone] documented in this encounter Visit Diagnoses Diagnosis Encounter for screening for other viral diseases documented in this encounter
--- OUTSIDE RECORDS SUMMARY | 2025-05-03 08:17 | XMS_ITS | Encounter Summary ---
Author Organization [facility] Address [address] [place] [address] Care Team Providers Care Landscape Painter Name Role Phone Unavailable Primary Care Provider Unavailabl e Encounter Details Date Type Department Care Team (Late st Contact Info) Description 07/15/2020 Lab Requisition [facility] Laboratory Services [facility] [address] [place] [address] Graham Patricia MD [address] [place] [address] Social History Tobacco Use Types [...] 07/16/2020 4:18 PM CDT [facility] Comment: A Not Detected [...] providers and patients using the following websites: https://www.babberly.EDITD/home/Covid-19/HCP/[facility]/fact- sheet.html https://www.babberly.EDITD/home/Covid-19/Patients/ [facility]/fact-sheet.html This test has been authorized by the FDA under an Emergency Use Authorization (EUA) for use by authorized laboratories. Due to the current public health emergency, [employer] [facility] [employer] is receiving a high volume of samples [...] about COVID-19 can be found at the [employer] website: www.[employer].EDITD/Covid19. Upper Respiratory Collection / Unknown 07/15/2020 7:00 AM CDT 07/15/2020 11:37 AM CDT Narrative [facility] - 07/16/2020 4:18 PM CDT Performing Organization Information: Site ID: [place] Name: [facility] Address: [address] [address] Director: Theodore Cobb D.O., MPH Graham Patricia MD MICROBIOLOGY - GENERAL ORDERA BOBS Final Result [facility] [phone] documented in this encounter Visit Diagnoses Not on filedocumented in this encounter
--- OUTSIDE RECORDS SUMMARY | 2025-05-03 08:17 | XMS_ITS | Encounter Summary ---
Author Organization [facility] Address [address] [place] [address] Care Team Providers Care Roofing Sales Representative Name Role Phone Unavailable Primary Care Provider Unavailabl e Encounter Details Date Type Department Care Team (Late st Contact Info) Description 12/15/2020 Lab Requisition [facility] Laboratory Services [facility] [address] [place] [address] [place] [address] [facility] [address] [place] [address] Encounter for general adult medical [...] (COVID-19) PCR DETECTION Routine 12/13/2020 9:37 AM CUT PRESS OPERATOR Encounter for general adult medical examination without abnormal findings documented in this encounter Results * 2019 NOVEL CORONAVIRUS (COVID-19) PCR DETECTION (12/13/2020 9:37 AM CUT PRESS OPERATOR) COVID-19 PCR NOT DETECTED Not Detected 12/16/19 12:45 AM CUT PRESS OPERATOR [facility] PERFORMING LAB [facility] 12/16/2020 12:45 AM CUT PRESS OPERATOR [facility] Upper Respiratory Collection / Unknown 12/13/2020 9:37 AM CUT PRESS OPERATOR 12/15/2020 5:28 PM CUT PRESS OPERATOR [facility] - 12/16/2020 12:45 AM CUT PRESS OPERATOR This test has been authorized by [...] MICROBIOLOGY - GENERAL ORDER BELEN Final Result [facility]# [id number] [address] [place] [address] documented in this encounter Visit Diagnoses Diagnosis Encounter for general adult medical examination without abnormal findings Routine general medical examination at a health care facility documented in this encounter
--- OUTSIDE RECORDS SUMMARY | 2025-05-03 08:17 | XMS_ITS | Encounter Summary ---
Author Organization [facility] Address [address] [place] [address] Care Team Providers Care Personal Shopper Name Role Phone Unavailable Primary Care Provider Unavailabl e Encounter Details Date Type Department Care Team (Late st Contact Info) Description 06/25/2020 Lab Requisition [facility] Laboratory Services S [facility] [address] [place] [address] Graham Patricia MD [address] [facility] [address] [address] [address] [address] [place] [address] Social History Tobacco Use Types [...] 06/27/2020 5:50 AM CDT [facility] Comment: A Not Detected (negative) test result [...] providers and patients using the following websites: https://www.Swopboard.PureSense/home/Covid-19/HCP/NAAT/fact-sheet2 https://www.Swopboard.PureSense/home/Covid-19/Patients/NAAT/ fact-sheet2 This test has been authorized by the FDA under an Emergency Use Authorization (EUA) for use by authorized laboratories. Due to the current public health emergency, [employer] is receiving a high volume of samples [...] about COVID-19 can be found at the [employer] website: www.Altenera Technology/Covid19. Upper Respiratory Collection / Unknown 06/24/2020 2:30 PM CDT 06/25/2020 1:06 PM CDT Narrative [facility] - 06/27/2020 5:50 AM CDT Performing Organization Information: Site ID: [place] Name: [facility] Address: [address] [address] Director: Theodore Cobb D.O., MPH Graham Patricia MD MICROBIOLOGY - GENERAL ORDERA BLE Final Result [facility] [phone] documented in this encounter Visit Diagnoses Not on filedocumented in this encounter
--- OUTSIDE RECORDS SUMMARY | 2025-05-03 08:18 | XMS_ITS | Encounter Summary ---
Author Organization [facility] Address [address] [place] [address] Care Team Providers Care Nitriles Lab Technician Name Role Phone Unavailable Primary Care Provider Unavailabl e Encounter Details Date Type Department Care Team (Late st Contact Info) Description 06/10/2020 Lab Requisition [facility] Laboratory Services S [facility] [address] [place] [address] Graham Patricia MD [address] [facility] [address] [place] [address] Encounter for screening for other [...] 06/12/2020 5:12 AM CDT [facility] Comment: A Not Detected (negative) [...] providers and patients using the following websites: https://www.GoodAppetito.Baremetrics/home/Covid-19/HCP/NAAT/fact-sheet2 https://www.GoodAppetito.Baremetrics/home/Covid-19/Patients/NAAT/ fact-sheet2 This test has been authorized by the FDA under an Emergency Use Authorization (EUA) for use by authorized laboratories. Due to the current public health emergency, [facility] is receiving a high volume of samples [...] about COVID-19 can be found at the [facility] website: www.Xcell Medical.Baremetrics/Covid19. Upper Respiratory Collection / Unknown 06/10/2020 12:00 PM CDT 06/10/2020 4:20 PM CDT Narrative [facility] - 06/12/2020 5:12 AM CDT Performing Organization Information: Site ID: [place] Name: [facility] Address: [address] [address] Director: Theodore Cobb D.O., MPH Graham Patricia MD [facility]BIOLOG[facility] - [facility] Final Result [facility] [phone] documented in this encounter Visit Diagnoses Diagnosis Encounter for screening for other viral diseases documented in this encounter
--- OUTSIDE RECORDS SUMMARY | 2025-05-03 08:18 | XMS_ITS | Encounter Summary ---
Author Organization [facility] Address [address] [place] [address] Care Team Providers Care Biomechanical Engineer Name Role Phone Unavailable Primary Care Provider Unavailabl e Encounter Details Date Type Department Care Team (Late st Contact Info) Description 07/01/2020 Lab Requisition [facility] Laboratory Services S [facility] [address] [place] [address] Graham Patricia MD [address] [facility] [address] [place] [address] Encounter for screening for other [...] 07/03/2020 3:20 AM CDT [facility] Comment: A Not Detected (negative) [...] providers and patients using the following websites: https://www.Tillster.Sun National Bank/home/Covid-19/HCP/NAAT/fact-sheet2 https://www.Tillster.Sun National Bank/home/Covid-19/Patients/NAAT/ fact-sheet2 This test has been authorized by the FDA under an Emergency Use Authorization (EUA) for use by authorized laboratories. Due to the current public health emergency, [employer] is receiving a high volume of [...] about COVID-19 can be found at the [employer] website: www.CELLFOR.Sun National Bank/Covid19. Upper Respiratory Collection / Unknown 07/01/2020 3:40 PM CDT 07/01/2020 6:07 PM CDT Narrative [facility] - 07/03/2020 3:20 AM CDT Performing Organization Information: Site ID: [place] Name: [employer] Address: [address] [address] Director: Theodore Cobb D.O., MPH Graham Patricia MD MICROBIOLOGY - [facility]AL [facility] Final Result [facility] [phone] documented in this encounter Visit Diagnoses Diagnosis Encounter for screening for other viral diseases documented in this encounter
[2025-05-03 19:39] LABS: Hematocrit 38.6 % (37.0-47.0); Hemoglobin 12.3 g/dL (12.0-15.0); Mean Corpuscular HGB Conc 31.9 g/dl (32-36); Mean Corpuscular Hemoglobin 26.1 pg (26-34); Mean Platelet Volume 12.5 fl (7.4-10.4); Platelet Count Result 265 k/mm3 (150-375); Red Blood Count 4.71 M/mm3 (4.2-5.4); White Blood Count 8.1 K/mm3 (4.5-10.0)
[2025-05-03 21:08] LABS: Alanine Aminotransferase 25 U/L (6-35); Albumin Level 4.3 g/dL (3.5-5.1); Alkaline Phosphatase 63 U/L (38-126); Anion Gap 9 mmol/L (4-12); Aspartate Amino Transferase 71 U/L (14-36); Bilirubin,Total 0.4 mg/dL (0.2-1.3); Blood Urea Nitrogen 12 mg/dL (7-17); Calcium 9.4 mg/dL (8.4-10.2); Carbon Dioxide 23 mmol/L (22-30); Chloride 103 mmol/L (98-107); Cholesterol 118 mg/dL (0-200); Estimated Glomerular Filt Rate > 60; Glucose 82 mg/dL (65-110); HDL Direct 38 mg/dL; Potassium 4.2 mmol/L (3.4-5.0); Sodium 135 mmol/L (137-145); Triglycerides 53 mg/dL (<150)
[2025-05-03 21:19] LABS: LDL Cholesterol Direct 50 mg/dL
[2025-05-03 21:38] LABS: Thyroid Stimulating Hormone 0.792 uIU/mL (0.465-4.680)
[2025-05-03 21:51] LABS: Hemoglobin A1C 5.9 % (<5.7)
== END 2025-05-03 08:13 | disposition home or self-care (01) ==
LOC: ANHGOSHLAB 08:13
PROVIDERS: PCP Family Medicine; Visit Provider Family Medicine
DX: E78.5 Hyperlipidemia, unspecified (principal); I10 Essential (primary) hypertension; R73.03 Prediabetes; E66.9 Obesity, unspecified
CPT/HCPCS: 36415; 80053; 80061; 83036; 84443; 85027

== ENCOUNTER 2025-06-04 08:17 | Outpatient (CLI) | payer BC, SELFPAY ==
--- OUTSIDE RECORDS SUMMARY | 2025-06-04 08:20 | XMS_ITS | Encounter Summary ---
Author Organization [facility] Address [address] [place] [address] Care Team Providers Care Supervisor Sandblaster Name Role Phone Unavailable Primary Care Provider Unavailabl e Encounter Details Date Type Department Care Team (Late st Contact Info) Description 07/08/2020 Lab Requisition [facility] Laboratory Services S [facility] [address] [place] [address] Graham Patricia MD [address] [facility] [address] [place] [address] Encounter for screening for other [...] 07/10/2020 2:49 AM CDT [facility] Comment: A Not Detected (negative) test [...] providers and patients using the following websites: https://www.Fixmo.Andela/home/Covid-19/HCP/NAAT/fact-sheet2 https://www.Fixmo.Andela/home/Covid-19/Patients/NAAT/ fact-sheet2 This test has been authorized by the FDA under an Emergency Use Authorization (EUA) for use by authorized laboratories. Due to the current public health emergency, [facility] is receiving a high volume of samples [...] about COVID-19 can be found at the [facility] website: www.Blue Belt Technologies.Andela/Covid19. Upper Respiratory Collection / Unknown 07/08/2020 3:00 PM CDT 07/08/2020 6:48 PM CDT Narrative [facility] - 07/10/2020 2:49 AM CDT Performing Organization Information: Site ID: [place] Name: [facility] Address: [address] [address] Director: Theodore Cobb D.O., MPH Graham Patricia MD [facility]BIOLOG[facility] - [facility] Final Result [facility] [phone] documented in this encounter Visit Diagnoses Diagnosis Encounter for screening for other viral diseases documented in this encounter
--- OUTSIDE RECORDS SUMMARY | 2025-06-04 08:20 | XMS_ITS | Encounter Summary ---
Author Organization [facility] Address [address] [place] [address] Care Team Providers Care Clothing Examiner Name Role Phone Unavailable Primary Care Provider Unavailabl e Encounter Details Date Type Department Care Team (Late st Contact Info) Description 07/22/2020 Lab Requisition [facility] Laboratory Services S [facility] [address] [place] [address] Graham Patricia MD [address] [facility] [place] [address] Encounter for screening for other [...] 07/24/2020 2:18 AM CDT [facility] Comment: A [...] providers and patients using the following websites: https://www.Shayne Foods.Newtricious/home/Covid-19/HCP/NAAT/fact-sheet2 https://www.Shayne Foods.Newtricious/home/Covid-19/Patients/NAAT/ fact-sheet2 This test has been authorized by the FDA under an Emergency Use Authorization (EUA) for use by authorized laboratories. Due to the current public health emergency, [facility] is receiving a high volume of samples [...] about COVID-19 can be found at the [facility] website: www.Catalist Homes.Newtricious/Covid19. Upper Respiratory Collection / Unknown 07/22/2020 9:30 AM CDT 07/22/2020 3:24 PM CDT Narrative [facility] - 07/24/2020 2:18 AM CDT Performing Organization Information: Site ID: [place] Name: [facility] Address: [address] [address] Director: Theodore Cobb D.O., MPH Graham Patricia MD MICROBIOLOGY - GENERAL ORDERCierra ROJAS Final Result [facility] [phone] documented in this encounter Visit Diagnoses Diagnosis Encounter for screening for other viral diseases documented in this encounter
--- OUTSIDE RECORDS SUMMARY | 2025-06-04 08:20 | XMS_ITS | Encounter Summary ---
Author Organization [facility] Address [address] [place] [address] Care Team Providers Care Safety And Health Consultant Name Role Phone Unavailable Primary Care Provider Unavailabl e Encounter Details Date Type Department Care Team (Late st Contact Info) Description 10/21/2020 Lab Requisition [facility] Laboratory Services S [facility] [address] [place] [address] Graham Patricia MD [address] [facility] [address] [place] [address] Social History Tobacco Use Types [...] PCR DETECTION Routine 10/21/2020 10:29 AM SUPERVISOR IRRIGATION documented in this encounter Results * 2019 NOVEL CORONAVIRUS (COVID-19) PCR DETECTION (10/21/2020 10:29 AM SUPERVISOR IRRIGATION) COVID-19 PCR NOT DETECTED Not Detected 10/22/20 20 4:05 AM SUPERVISOR IRRIGATION [facility] PERFORMING LAB [facility] 10/22/2020 4:05 AM SUPERVISOR IRRIGATION [facility] Upper Respiratory Collection / Unknown 10/21/2020 10:29 AM SUPERVISOR IRRIGATION 10/21/2020 10:47 PM SUPERVISOR IRRIGATION Narrative [facility] - 10/22/2020 4:05 AM SUPERVISOR IRRIGATION This test has been authorized by the [...] Graham Patricia MD MICROBIOLOGY - GENERAL ORDERA [facility] Final Result [facility] SERVICES [facility]# [id number] [address] [place] [address] documented in this encounter Visit Diagnoses Not on filedocumented in this encounter
--- OUTSIDE RECORDS SUMMARY | 2025-06-04 08:20 | XMS_ITS | Encounter Summary ---
Author Organization [facility] Address [address] [place] [address] Care Team Providers Care Army Ranger Name Role Phone Unavailable Primary Care Provider Unavailabl e Encounter Details Date Type Department Care Team (Late st Contact Info) Description 10/15/2020 Lab Requisition [facility] Laboratory Services S [facility] [address] [place] [address] Graham Patricia MD [address] [place] [address] Encounter for screening for other [...] (COVID-19) PCR DETECTION Routine 10/15/2020 6:42 PM BUSINESS PERFORMANCE ANALYST Encounter for screening for other viral diseases documented in this encounter Results * 2019 NOVEL CORONAVIRUS (COVID-19) PCR DETECTION (10/15/2020 6:42 PM BUSINESS PERFORMANCE ANALYST) COVID-19 PCR NOT DETECTED Not Detected 10/16/20 20 1:49 AM BUSINESS PERFORMANCE ANALYST [facility] SERVICES [facility] PERFORMING LAB [facility] 10/16/2020 1:49 AM BUSINESS PERFORMANCE ANALYST [facility] Upper Respiratory Collection / Unknown 10/15/2020 6:42 PM BUSINESS PERFORMANCE ANALYST 10/15/2020 6:42 PM BUSINESS PERFORMANCE ANALYST Narrative [facility] - 10/16/2020 1:49 AM BUSINESS PERFORMANCE ANALYST This test has been authorized by the [...] MICROBIOLOGY - GENERAL ORDERA BLES Final Result [facility]# [id number] [address] [place] [address] documented in this encounter Visit Diagnoses Diagnosis Encounter for screening for other viral diseases documented in this encounter
--- OUTSIDE RECORDS SUMMARY | 2025-06-04 08:20 | XMS_ITS | Encounter Summary ---
Author Organization [facility] Address [address] [place] [address] Care Team Providers Care Manager Project Management Name Role Phone Unavailable Primary Care Provider Unavailabl e Encounter Details Date Type Department Care Team (Late st Contact Info) Description 06/10/2020 Lab Requisition [facility] Laboratory Services S [facility] [address] [place] [address] Graham Patricia MD [address] [facility] [facility] [address] [facility] [address] [place] [address] Encounter for screening for other [...] 06/12/2020 5:12 AM CDT [facility] Comment: A Not Detected (negative) test result [...] providers and patients using the following websites: https://www.Rixty.Creditable/home/Covid-19/HCP/NAAT/fact-sheet2 https://www.Rixty.Creditable/home/Covid-19/Patients/NAAT/ fact-sheet2 This test has been authorized by the FDA under an Emergency Use Authorization (EUA) for use by authorized laboratories. Due to the current public health emergency, [facility] is receiving a high volume of samples [...] about COVID-19 can be found at the [facility] website: www.Celtro.Creditable/Covid19. Upper Respiratory Collection / Unknown 06/10/2020 12:00 PM CDT 06/10/2020 4:20 PM CDT Narrative [facility] - 06/12/2020 5:12 AM CDT Performing Organization Information: Site ID: [place] Name: [facility] Address: [address] [address] Director: Theodore Cobb D.O., MPH Graham Patricia MD [facility]BIOLOGY - [facility] Final Result [facility] [phone] documented in this encounter Visit Diagnoses Diagnosis Encounter for screening for other viral diseases documented in this encounter
--- OUTSIDE RECORDS SUMMARY | 2025-06-04 08:20 | XMS_ITS | Encounter Summary ---
Author Organization [facility] Address [address] [place] [address] Care Team Providers Care Slitter And Rewinder Name Role Phone Unavailable Primary Care Provider Unavailabl e Encounter Details Date Type Department Care Team (Late st Contact Info) Description 10/16/2020 Lab Requisition [facility] Laboratory Services S [facility] [address] [place] [address] Graham Patricia MD [address] [place] [address] Social History Tobacco Use Types [...] (COVID-19) PCR DETECTION Routine 10/16/2020 12:00 PM STILL OPERATOR GIN documented in this encounter Results * 2019 NOVEL CORONAVIRUS (COVID-19) PCR DETECTION (10/16/2020 12:00 PM STILL OPERATOR GIN) COVID-19 PCR NOT DETECTED NOT DETECTED 10/18/2020 3:51 AM STILL OPERATOR GIN [facility] [...] providers and patients using the following websites: https://www.Interview Master.Smokazon.com/home/Covid-19/HCP/NAAT/fact-sheet2 https://www.Interview Master.Smokazon.com/home/Covid-19/Patients/NAAT/ fact-sheet2 This test has been authorized by the FDA under an Emergency Use Authorization (EUA) for use by authorized laboratories. Due to the current public health emergency, [facility] is receiving a high volume of samples [...] about COVID-19 can be found at the [facility] website: www.Bokee/Covid19. Upper Respiratory Collection / Unknown 10/16/2020 12:00 PM STILL OPERATOR GIN 10/16/2020 9:57 PM STILL OPERATOR GIN Narrative [facility] - 10/18/2020 3:51 AM STILL OPERATOR GIN Performing Organization Information: Site ID: [place] Name: [facility] Address: [address] [address] Director: Theodore Cobb D.O., MPH Graham Patricia MD MICROBIOLOGY - GENERAL ORDERA BLES Final Result [facility] [phone] documented in this encounter Visit Diagnoses Not on filedocumented in this encounter
--- OUTSIDE RECORDS SUMMARY | 2025-06-04 08:20 | XMS_ITS | Clinical Summary ---
Author Organization [facility] Address [address] [place] [address] Phone Care Team Providers Care Gauge Maker Apprentice Name Role Phone Unavailable Primary Care [...] (1 of 2) 2021 INFLUENZA VACCINE (#1) 2025
--- OUTSIDE RECORDS SUMMARY | 2025-06-04 08:20 | XMS_ITS | Encounter Summary ---
Author Organization [facility] Address [address] [place] [address] Care Team Providers Care Orthopedics Teacher Name Role Phone Unavailable Primary Care Provider Unavailabl e Encounter Details Date Type Department Care Team (Late st Contact Info) Description 07/15/2020 Lab Requisition [facility] Laboratory Services S [facility] [address] [place] [address] Graham Patricia MD [address] [place] [address] Social History Tobacco Use Types [...] 07/16/2020 4:18 PM CDT [facility] Comment: A Not Detected (negative) test [...] providers and patients using the following websites: https://www.Capsule Tech.iVentures Asia Ltd/home/Covid-19/HCP/[facility]/fact- sheet.html https://www.Capsule Tech.iVentures Asia Ltd/home/Covid-19/Patients/ Quest[facility]D/fact-sheet.html This test has been authorized by the FDA under an Emergency Use Authorization (EUA) for use by authorized laboratories. Due to the current public health emergency, [facility] is receiving a high volume of samples [...] about COVID-19 can be found at the [facility] website: www.Oxford Networks.iVentures Asia Ltd/Covid19. Upper Respiratory Collection / Unknown 07/15/2020 7:00 AM CDT 07/15/2020 11:37 AM CDT Narrative [facility] - 07/16/2020 4:18 PM CDT Performing Organization Information: Site ID: [place] Name: [facility] Address: [address] [address] Director: Theodore Cobb D.O., MPH Graham Patricia MD MICROBIOLOGY - GENERAL ORDERA [place] Final Result [facility] [phone] documented in this encounter Visit Diagnoses Not on filedocumented in this encounter
--- OUTSIDE RECORDS SUMMARY | 2025-06-04 08:20 | XMS_ITS | Encounter Summary ---
Author Organization [facility] Address [address] [place] [address] Care Team Providers Care Virologist Name Role Phone Unavailable Primary Care Provider Unavailabl e Encounter Details Date Type Department Care Team (Late st Contact Info) Description 06/25/2020 Lab Requisition [facility] Laboratory Services S [facility] [address] [place] [address] Graham Patricia MD [address] [place] [address] Social History Tobacco Use Types [...] 06/27/2020 5:50 AM CDT [facility] Comment: A Not Detected (negative) test [...] providers and patients using the following websites: https://www.GT Urological.Moka5.com/home/Covid-19/HCP/NAAT/fact-sheet2 https://www.GT Urological.Moka5.com/home/Covid-19/Patients/NAAT/ fact-sheet2 This test has been authorized by the FDA under an Emergency Use Authorization (EUA) for use by authorized laboratories. Due to the current public health emergency, [facility] is receiving a high volume of samples [...] about COVID-19 can be found at the [facility] website: www.Coherex Medical/Covid19. Upper Respiratory Collection / Unknown 06/24/2020 2:30 PM CDT 06/25/2020 1:06 PM CDT Narrative [facility] - 06/27/2020 5:50 AM CDT Performing Organization Information: Site ID: [place] Name: [facility] Address: [address] [address] Director: Theodore Cobb D.O., MPH Graham Patricia MD MICROBIOLOGY - GENERAL ORDERA BLE Final Result [facility] [phone] documented in this encounter Visit Diagnoses Not on filedocumented in this encounter
--- OUTSIDE RECORDS SUMMARY | 2025-06-04 08:20 | XMS_ITS | Encounter Summary ---
Author Organization [facility] Address [address] [place] [address] Care Team Providers Care Food Service Associate Name Role Phone Unavailable Primary Care Provider Unavailabl e Encounter Details Date Type Department Care Team (Late st Contact Info) Description 12/15/2020 Lab Requisition [facility] Laboratory Services S [facility] [address] [place] [place] [address] [place] [address] [facility] [address] [place] [address] Encounter for general adult medical [...] (COVID-19) PCR DETECTION Routine 12/13/2020 9:37 AM LEGAL PARAPROFESSIONAL Encounter for general adult medical examination without abnormal findings documented in this encounter Results * 2019 NOVEL CORONAVIRUS (COVID-19) PCR DETECTION (12/13/2020 9:37 AM LEGAL PARAPROFESSIONAL) COVID-19 PCR NOT DETECTED Not Detected 12/16/19 12:45 AM LEGAL PARAPROFESSIONAL [facility] PERFORMING LAB [facility] 12/16/2020 12:45 AM LEGAL PARAPROFESSIONAL [facility] Upper Respiratory Collection / Unknown 12/13/2020 9:37 AM LEGAL PARAPROFESSIONAL 12/15/2020 5:28 PM LEGAL PARAPROFESSIONAL [facility] - 12/16/2020 12:45 AM LEGAL PARAPROFESSIONAL This test has been authorized by the [...] MICROBIOLOGY - GENERAL ORDER BELEN Final Result [facility]# [id number] [address] [place] [address] documented in this encounter Visit Diagnoses Diagnosis Encounter for general adult medical examination without abnormal findings Routine general medical examination at a health care facility documented in this encounter
--- OUTSIDE RECORDS SUMMARY | 2025-06-04 08:20 | XMS_ITS | Clinical Summary ---
Author Organization [facility] Address [address] [place] [address] Care Team Providers Care Machine Guide Base Winder Name Role Phone Unavailable Primary Care Provider Unavailabl e Source Comments [facility],non-owned Affiliates and Associated Physician Practices is amultiple site organization consisting of ambulatory clinics and hospital sitesin [place], [place], [place] and [place]. This disclosure is being madepursuant to the Care Everywhere program and may not contain all information available regarding this patient. Last updated 18.[facility] Allergies No known active allergies Medications * [...] Sex Assigned at Female 09/30/2020 2:47 PM FISCAL ECONOMIST Legal Sex Female 10:28 AM CDT Gender Identity Female 09/30/2020 2:46 PM FISCAL ECONOMIST Sexual Orientation Straight 09/30/2020 2: 47 PM FISCAL ECONOMIST Occupation Industry Job Start Date Job End Date RN Not on file Not on file Not on file Last Filed Vital Signs Vital Sign Reading Time Taken Comments Blood Pressure 144/86 11/24/2024 7:42 AM FISCAL ECONOMIST Pulse 85 11/24/2024 7:42 AM FISCAL ECONOMIST Temperature 36.4 C (97.5 F) 04/13/2023 12:05 PM CDT Respiratory Rate 17 04/13/2023 12:2 0 PM CDT Oxygen Saturation 77% 04/13/2023 12: 20 PM CDT Inhaled Oxygen Concentration - - Weight 84.3 kg (185 lb 12.8 oz) 11/24/2024 7:42 AM FISCAL ECONOMIST Height 160 cm (5' 3) 11/24/2024 7:42 AM FISCAL ECONOMIST Body Mass Index 32.91 11/24/2024 7:42 AM FISCAL ECONOMIST Plan of Treatment Health Maintenance Due Date [...] 02/19/2022, 01/12/2022, Additional history exists INFLUENZA VACCINE (#1) 2025 , 08/22/2021, 08/22/2020, Additional history exists PAP with HPV 09/06/2025 09/06/2020, 06/23, 07/16/2016 MAMMOGRAM 09/22/2025 09/22/2024, 08/24, 09/21/2022, Additional history [...] W LDL/HDL RATIO Routine 11/12/2023 8:14 AM FISCAL ECONOMIST Well woman exam with routine gynecological exam Hormone replacement therapy (HRT) ENDOSCOPY, COLON, SCREENING Routine 04/13/2023 10:42 AM CDT HEPATITIS SCREEN ACUTE Routine 11/27/2022 7:28 AM FISCAL ECONOMIST Screening for venereal disease HIV-1 HIV-2 ANTIBODY + HIV P24 AG PANEL Routine 11/27/2022 7:28 AM FISCAL ECONOMIST Screening for venereal disease HEMOGLOBIN A1C Routine 04/11/2022 11:50 AM CDT Pre-diabetes PAP IG LB+CT+NG+TV+HPV APTIMA RFLX 16,18/45 Routine 09/06/2020 3:14 PM CDT Screening for human papillomavirus Screening for venereal disease Possible exposure to STD from Last 3 Months or Most Recently [...] been no significant interval change. Monae Dozier APRN-ENVIRONMENTAL FIELD OFFICE MANAGER MAMMO ORDERABLES Final Re sult * (ABNORMAL) LIPID PROFILE W LDL/HDL RATIO (11/12/2023 8:14 AM FISCAL ECONOMIST) Cholesterol 182 100 - 199 mg/dL [facility] [...] BLOOD SPECIMEN / Unknown 11/12/2023 8:14 AM FISCAL ECONOMIST 11/12/2023 Narrative Resulting Agency Comment Lab Testing performed at: [facility] [address] [id number] Monae Dozier [facility] - CHEMISTRY ORDERABLE S Final Result [facility] ACCOUNT BILL [address] [place] [address] * ENDOSCOPY, COLON, SCREENING (04/13/2023 10:42 AM CDT) Report Endoscopy POC _ Patient Name: Tasha Leary Procedure Date: 04/13/2023 10:42 AM Date of : 1970 Admit Type: Outpatient Age: 52 Gender: Female Attending MD: Marlene Flores MD, [id number] _ Procedure: Colonoscopy Indications: High risk colon [...] bowel preparation was evaluated using the BBPS ([place] Bowel Preparation Scale) with scores of: Right [...] for surveillance. Procedure Code(s): --- Professional --- 24603, Colonoscopy, flexible; with biopsy, single or multiple --- Technical --- 31319, Colonoscopy, flexible; with biopsy, single or multiple [...] or abscess without bleeding CPT copyright 2020 [employer]. All rights reserved. The codes documented in this report are preliminary and upon drafter (cad) electronic review may be revised to meet current compliance requirements. _ Marlene Flores MD 04/13/2023 12:07:15 PM Number of Addenda: 0 Note Initiated On: 04/13/2023 10:42 AM [facility] ENDOSCOPY 04/13/2023 10:4 2 AM CDT us Marlene Flores MD GI PROCEDURE ORDERABLES Edite d Result - Final [facility] [place] [place] [address] * HIV-1 HIV-2 ANTIBODY + HIV P24 AG PANEL (11/27/2022 7:28 AM FISCAL ECONOMIST) HIV Screen 4th Generation w Reflex NON-REACT [...] purpose. For additional information please refer to http://education.MyLife.Lineagen/faq/HFB766 (This link is being provided for informational/ educational purposes only.) The performance of this assay has not been clinically validated in patients less than 2 years old. Test Performed at: [facility] [address] [facility] [address] HORACE OLSEN DO,MPH Blood BLOOD SPECIMEN / Unknown 11/27/2022 7:28 AM FISCAL ECONOMIST 11/27/2022 7:29 AM FISCAL ECONOMIST Monae Tasia KLEIN-ENVIRONMENTAL FIELD OFFICE MANAGER LAB - CHEMISTRY ORDERABLE S Final Result Performing Organization Address [facility] de Phone Number [facility] [address] [place] [address] * HEPATITIS SCREEN ACUTE (11/27/2022 7:28 AM FISCAL ECONOMIST) Pathologist [facility] Hepatitis A Virus Antibody IgM NON-REACTI VE NON-REACT [facility] Comment: For additional information, please refer to http://DuPont/faq/PHJ062 (This link is being provided for informational/ [...] a test for HCV RNA (test code 99885) is suggested. For additional information please refer to http://Saffron Digital.ORCA, Inc./faq/JGN38x7 (This link is being provided for informational/ educational purposes only.) Test Performed at: [facility] [address] [facility] [address] HORACE OLSEN DO,MPH Blood BLOOD SPECIMEN / Unknown 11/27/2022 7:28 AM FISCAL ECONOMIST 11/27/2022 7:29 AM FISCAL ECONOMIST Monae Dozier APRN-ENVIRONMENTAL FIELD OFFICE MANAGER LAB - CHEMISTRY ORDERABLE S Final Result Performing Organization Address [facility]/ZIP Co de Phone Number [facility] [address] [place] [address] * (ABNORMAL) HEMOGLOBIN A1C (04/11/2022 11:50 AM [...] children. REPORT COMMENT: FASTING:NO Test Performed at: [facility] [address] MADINA JULIAN MD Blood BLOOD SPECIMEN / Unknown 04/11/2022 11:50 AM CDT 04/11/2022 11:51 AM CDT us Delores Bell MD LAB - CHEMISTRY ORDER BELEN Final Result [address] [address] * PAP IG LB+CT+NG+TV+HPV APTIMA RFLX 16,18/45 (09/06/2020 3:14 PM CDT) Diagnosis [facility] ACCOUNT BILL Comment:NEGATIVE FOR INTRAEP ITHELIAL LESION OR MALIGNANCY. Specimen Adequacy [facility] ACCOUNT BILL Comment: Satisfactory for evaluation. Endocervical and/or squamous metaplastic cells (endocervical component) are present. Clinician Provided ICD10 [facility] ACCOUNT BILL Comment: Z11.51 Z11.3 Z20.2 Performed by [facility] ACCOUNT BILL Comment:Ron Cruz, Cyto technologist (ASCP) Comment . [facility] ACCOUNT BILL Note [facility] ACCOUNT BILL Comment: The Pap smear is a screening test designed to aid in the detection of premalignant and malignant conditions of the uterine cervix. It is not a diagnostic procedure and should not be used as the sole means of detecting cervical cancer. Both false-positive and false-negative reports do occur. . IGLBP CPT Code Automation [facility] ACCOUNT [...] Resulting Agency Comment Lab Testing performed at: [address] [id number] Bessie Marin MD LAB - PATHOLOGY/CYTOLOGY ORDER BELEN Final Result [facility] ACCOUNT BILL [address] [place] [address] from Last 3 Months or Most Recently Relevant to Health Maintenance [place] [address] [facility]
--- OUTSIDE RECORDS SUMMARY | 2025-06-04 08:20 | XMS_ITS | Encounter Summary ---
Author Organization [facility] Address [address] [place] [address] Care Team Providers Care Repair Servicer Name Role Phone Unavailable Primary Care Provider Unavailabl e Encounter Details Date Type Department Care Team (Late st Contact Info) Description 06/18/2020 Lab Requisition [facility] Laboratory Services S [facility] [address] [place] [address] Graham Patricia MD [address] [place] [address] Social History Tobacco Use Types [...] 06/20/2020 3:22 AM CDT [facility] Comment: A Not Detected (negative) test [...] providers and patients using the following websites: https://www.Purigen Biosystems.Exhbit/home/Covid-19/HCP/NAAT/fact-sheet2 https://www.Purigen Biosystems.Exhbit/home/Covid-19/Patients/NAAT/ fact-sheet2 This test has been authorized by the FDA under an Emergency Use Authorization (EUA) for use by authorized laboratories. Due to the current public health emergency, [facility] is receiving a high volume of samples [...] about COVID-19 can be found at the [facility] website: www.PopUpsters/Covid19. Upper Respiratory Collection / Unknown 06/18/2020 8:50 AM CDT 06/18/2020 3:21 PM CDT Narrative [facility] - 06/20/2020 3:22 AM CDT Performing Organization Information: Site ID: [place] Name: [facility] Address: [address] [address] Director: Theodore Cobb D.O., MPH Graham Patricia MD MICROBIOLOGY - GENERAL ORDERA BLE Final Result [facility] [place] [phone] documented in this encounter Visit Diagnoses Not on filedocumented in this encounter
--- OUTSIDE RECORDS SUMMARY | 2025-06-04 08:20 | XMS_ITS | Data Portability ---
Author Organization [place] [facility] [employer], Main Office Address [address] [place] [address] Care Team Providers Care Tile Shader Name Role Phone LUIS M FORBES Primary Care Provider [phone] Assessment No assessment recorded. Plan of Treatment Reminders Order Date Submit Date Provider Last Modified By Organization Details Last Modified Time Details Appointments None recorded. Lab None recorded. Referral None recorded. Procedures None recorded. Surgeries None recorded. Imaging None recorded. Medication Orders amlodipine 5 mg tablet 2022 023 [facility] [address], [place], [address], 11:15:28 Patient TargetsNo targets recorded. Patient Instructions Encounter Date Encounter Id Patient Instructions Last Modified By Organization Details Last Modified Time 07/01/2023 [id number] which she will undergo balloon assisted septoplasty Not available 07/01/2023 15:52:48 08/26/2023 [id number] she will return as needed Not available 08/26/2023 15:39:33 Reason for Referral None Reported. Results Created Date Observation Date Name Description Value Unit Range Abnormal Flag Note LastModifiedBy Organization Detail LastModifiedTime 06/10/[address], maxil lofac ial, w/o contr ast [facility] [address], [place] [address] [phone] Patien t Name: SHEA MORALES Access ion #: [id number] Sex: F : 1970 1 Locati [...] que. FINDIN GS: Page 1 of 2 [facility] t Name: SHEA MORALES Access ion #: [id number] Sex: F : 1970 1 Exam [...] PM (CT) Page 2 of 2 [email or web address] [facility] (Imaging) [address] [place], [address], 06/14/2023 10:04:49 06/10/[address] 23 [address], sinus es, w/o contr ast No observ ation record ed. [email or web address] [address] [place], [address], 06/14/2023 10:05:33 06/16/[address], sinus es, w/o contr ast No observ ation record ed. [email or web address] [facility] [address] [place] [address] , [place], [address], 06/17/2023 14:25:40 08/17/20 23 08/17/2023 elect gilma [email or web address] am No observ ation record ed. [email or web address] Not Available 2022 12:17:07 Result Notes Documentation Provider Name and Address Organization Details Recorded Time Ct, Maxillofacial, W/o Contrast : [facility] [address] [place] [address] Patient Name: TASHA MORALES Sex: F : 1970 Location: [facility] Attending Physician: TOI WOODS Ordering Physician: TOI WOODS Exam Date: 06/10/2023 2:55 PM Exam Name: CT MAXILLOFACIAL WO Admitting Diagnosis(es): RADIOLOGY REPORT - FINAL EXAM: CT MAXILLOFACIAL WO HISTORY: chronic sinusitis 52-year-old female with chronic nasal congestion and drainage. COMPARISON: None available. TECHNIQUE: Noncontrast axial CT images of the paranasal sinuses were performed. Coronal and sagittal reformatted images were obtained. This CT exam was performed using one or more of the following dose reduction techniques: Automated exposure control, adjustment of the mA and/or kV according to patient size, or use of iterative reconstruction technique. FINDINGS: Page 1 of 2 [facility] Patient Name: TASHA MORALES Sex: F : 1970 Exam Date: 06/10/2023 2:55 PM Exam Name: CT MAXILLOFACIAL WO Admitting Diagnosis(es): There is a small right maxillary sinus mucous retention cyst. The other paranasal sinuses are clear. No facial bone fractures are identified. The nasal septum is mildly deviated to the right. The OMCs are patent. There are tiny bilateral sugar bullosa. There is a large left Julianne cell (image 17, series 203). The mastoid air cells and middle ear spaces are clear. No fractures are identified about the facial bones. There is hypertrophy of the palatine and lingual tonsils, with mild narrowing of the oropharyngeal airway. There is a dental cavity involving the left maxillary 3rd molar tooth. IMPRESSION: 1. Minimal right maxillary sinus disease. The other paranasal sinuses are clear. 2. Tonsillar hypertrophy with mild narrowing of the upper airway. 3. Dental cavity involving the left maxillary 3rd molar tooth. Recommend dental consultation. Created and electronically signed by: Inderjit Mendoza MD Signed Date: 06/10/2023 3:35 PM (CT) Dictated by: Inderjit Mendoza MD (CT) (CT) Page 2 of 2 Ashley Marcus RN [facility], [place] - [facility] [employer] [facility] 06/14/2023 10:04:49 Problems Name Problem SNOMED Code Status Onset Date Resolution Date Notes Provider Name and Address Organization Details Recorded Time Family history of diabetes mellitus 259508708 Active 2022 Not Available [facility] 3 08:05:43 History of polyp of colon 359603009 Active 2022 Not Available [facility] 3 08:05:43 Essential hypertension 50681218 Active 2022 Not Available [facility] 3 08:05:43 Acne 75574557 Active 2022 Not Available [facility] 3 08:05:43 Chronic sinusitis 19587135 Active 2022 Not Available [facility] 3 08:05:43 Deviated nasal septum 521622859 Active 2022 Not Available [facility] 3 08:05:43 Problem Notes None recorded. Procedures Surgical History Date Name Laterality Status Provider Name and Address Organization Details Recorded Time Partial hysterectomy completed Not Available [facility] 01/20/2023 10:41:20 Breast reduction completed Not Available [facility] 01/20/2023 10:41:20 colonoscopy completed Not Available [facility] 01/20/2023 10:41:20 tonsillectomy completed Ashley Marcus RN [facility] 05/27/2023 15:56:31 nasal septoplasty completed Ashley Marcus RN [facility] 08/24/2023 11:33:58 Imaging Results None recorded. Procedure [...] Heart rate Body temperature Body weight Systolic And Diastolic Provider Name and Address Organization Details Last Updated DateTime 3 99 % 99 % 99 /min 98 [degF] 82547.5 5 g 120/67 mm[Hg] Not Available [facility] 3 10:41:43 Date Recorded Body weight Body mass index (BMI) Body height Body temperature Heart rate Oxygen saturation Oxygen saturation in Arterial blood by Pulse oximetry Systolic And Diastolic Provider Name and Address Organization Details Last Updated DateTime 3 68097.6 3 g 30.9 kg/m2 162.56 cm 97.4 [degF] 81 /min 99 % 99 % 132/84 mm[Hg] Tracy Russo RN [facility] [employer] 3 10:47:38 Date Recorded Body height Body mass index (BMI) Body weight Body temperature Provider Name and Address Organization Details Last Updated DateTime 05/27/2023 162.56 cm 31.7 kg/m2 61856.43 g 97.7 [degF] Ashley Marcus RN [facility] [employer] 05/27/2023 15:55:37 Date Recorded Body height Body mass index (BMI) Body weight Body temperature Provider Name and Address Organization Details Last Updated DateTime 07/01/2023 162.56 cm 31.9 kg/m2 32745.18 g 97.8 [degF] Ashley Marcus RN [facility] [employer] 07/01/2023 15:39:38 Date Recorded Body height Body mass index (BMI) Body weight Provider Name and Address Organization Details Last Updated DateTime 08/26/2023 162.56 cm 30.6 kg/m2 93166.44 g Varsha Slaughter [facility] [employer] 08/26/2023 15:20:49 Social History Question Answer Notes LastModified by [employer] Details LastModified Time Tobacco Smoking Status Never Smoker MIRNA Macedo, [facility] [employer] 08/26/2023 15:11:40 What Is Your Level Of Caffeine Consumption? Occasional Information not available 03/23/2023 Do You Use Your Seat Belt Or Car Seat Routinely? Yes Information not available 08/26/2023 Do You Participate In Social [employer]? Yes Information not available 08/26/2023 Sex: Unknown Functional Status Question Answer Note LastModified by [employer] Details LastModified Time Do you use any illicit or recreational drugs? No Information not available 08/26/2023 What is your level of alcohol consumption? Occasional Information not available 03/23/2023 Mental Status Question Answer Note LastModified by Organization D etails LastModified Time Do you feel stressed (tense, restless, nervous, or anxious, or unable to sleep at night)? [id number] Information not available 08/26/2023 Family History Relationship Description Onset Age of this Age Resolved Age Notes LastModified by Organization Details LastModified Time Mother Diabetes mellitus [id number] Not available 01/20/2023 10:41:21 Maternal Grandmother Diabetes mellitus [id number] Not available 01/20/2023 10:41:21 Maternal Grandmother Essential [...] SNOMED-CT Code Diagnosis ICD10 Code Diagnosis Note [id number] Key Fontana MD [facility] Primary Care Juana turner [address] [place] [address] 12/11/2022 00:00:00 12/11/2022 17:59:33 [id number] Key Fontana MD [facility] Primary Care Juana turner [address] [place] [address] 03/23/2023 10:41:10 03/23/2023 11:17:56 Essential hypertension 03899388 I10 Stable with current regimen.As ymptomatic at this timeEncour aged pt to increase water intake, reduce caffeine intake, exercise regularly, decrease/e liminate sodium intake, work on weight loss and stress reductionW ill continue to monitor closelyNor vasc 5mg dailyHctz 12.5mg daily (on hold while taking spironolac tone) Acne 31833567 L70.9 Improving per patient, with spironolac tone (prescribe d by derm).Cont inue with hypoallerg enic face soap and lotion and products for face with gentle exfoliatio n but careful not to over wash/scrub . Hypoallerg enic products, dietary precaution s reviewed. Do not pick at lesions. Discussed some remaining acne normal, even with tx. [id number] Toi Woods MD [facility] ENT [place]thel [address] [place] [address] 05/27/2023 15:38:04 06/14/2023 12:16:30 Deviated nasal septum 599151659 J34.2 Chronic sinusitis 683181 00 J32.9 [id number] Toi Woods MD [facility] ENT [place] [address] [place] [address] 07/01/2023 15:22:32 07/01/2023 15:54:13 Deviated nasal septum 740223052 J34.2 Chronic sinusitis 476740 00 J32.9 [id number] Toi Woods MD [facility] Suzanne Brown [address] [place] [address] 08/26/2023 15:10:03 08/26/2023 15:41:27 Deviated nasal septum 575596022 J34.2 Health Concerns Section Related Observation LastModified by Organization Detai ls LastModified Time None Recorded Concern Status LastModified by Organization Details LastModified Time None Recorded Advance Directives Directive None Recorded Payers Insurance Date Sequence Insurance Name Policy Number Policy Dasilva Covered Member ID Dasilva Member ID Guarantor Name 08/26/2023 1 [place] [id number] Tasha Morales [id number] Tasha Jorge Luis Gibran Notes Date Note Type Note Provider Name and Address Organization Details Recorded Time 03/23/2023 text/html 03/23/23: 1. Pt in office for 4 month f/u appt. Pt denies any new medical concerns at this time. 12/11/22: 1. Pt in office to establish care. Was previously seeing Dr. Bell at [facility].2. Pt states she takes norvasc and hctz for htn, but the hctz is on hold while her acne is being tx'd with spironolactone by derm.3. Pt states she had partial hyst 3yrs ago (2019) d/t fibroids.4. Pt states she had breast reduction in 2020 as well. Luis M Forbes, VIN[facility] [address], [place], [address], [employer] 03/23/2023 18:28:52 05/27/2023 text/html this patient has a year's history of sinusitis and has been on antibiotics for this in the past she does have facial pain and headaches she takes many vasn-wwh-ouklnrb medications thinks that some of it may be worse during spring and fall. Toi Woods MD [address], [place], [address], [employer] 05/27/2023 16:11:35 07/01/2023 text/html the CT scan demonstrates right septal deviation which was known. Otherwise there was a small maxillary sinus cyst which does not require intervention Toi Woods MD [address] [place] [address], [place], [address], [employer] 07/01/2023 15:53:08 08/26/2023 text/html Patient is doing very well following septoplasty Toi Woods MD [address], [facility] [address], [place], [address], [employer] 08/26/2023 15:39:52 OBGyn Episode No OBEpisode recorded.
--- OUTSIDE RECORDS SUMMARY | 2025-06-04 08:20 | XMS_ITS | Encounter Summary ---
Author Organization [facility] Address [address] [place] [address] Care Team Providers Care Bartacker Name Role Phone Unavailable Primary Care Provider Unavailabl e Encounter Details Date Type Department Care Team (Late st Contact Info) Description 07/01/2020 Lab Requisition [facility] Laboratory Services S [facility] [address] [place] [address] Graham Patricia MD [address] [place] [address] Encounter for screening for other [...] 07/03/2020 3:20 AM CDT [facility] Comment: A Not Detected (negative) test [...] providers and patients using the following websites: https://www.CloudPay.HypeSpark/home/Covid-19/HCP/NAAT/fact-sheet2 https://www.CloudPay.HypeSpark/home/Covid-19/Patients/NAAT/ fact-sheet2 This test has been authorized by the FDA under an Emergency Use Authorization (EUA) for use by authorized laboratories. Due to the current public health emergency, [employer] is receiving a high volume of samples [...] about COVID-19 can be found at the [employer] website: www.Stima Systems.HypeSpark/Covid19. Upper Respiratory Collection / Unknown 07/01/2020 3:40 PM CDT 07/01/2020 6:07 PM CDT Narrative [facility] - 07/03/2020 3:20 AM CDT Performing Organization Information: Site ID: [place] Name: [employer] Address: [address] [address] Director: Theodore Cobb D.O., MPH Graham Patricia MD [facility]CROBIOLOGY - [facility] Final Result [facility] [phone] documented in this encounter Visit Diagnoses Diagnosis Encounter for screening for other viral diseases documented in this encounter
[2025-06-04 17:39] LABS: Alanine Aminotransferase 22 U/L (6-35); Albumin Level 4.1 g/dL (3.5-5.1); Alkaline Phosphatase 55 U/L (38-126); Anion Gap 9 mmol/L (4-12); Aspartate Amino Transferase 32 U/L (14-36); Bilirubin,Total 0.4 mg/dL (0.2-1.3); Blood Urea Nitrogen 8 mg/dL (7-17); Calcium 9.3 mg/dL (8.4-10.2); Carbon Dioxide 22 mmol/L (22-30); Chloride 107 mmol/L (98-107); Estimated Glomerular Filt Rate > 60; Glucose 104 mg/dL (65-110); Potassium 4.0 mmol/L (3.4-5.0); Sodium 138 mmol/L (137-145); Total Protein 7.7 g/dL (6.3-8.2)
[2025-06-05 11:59] LABS: Cholesterol 114 mg/dL (0-200); HDL Direct 36 mg/dL; Triglycerides 64 mg/dL (<150)
[2025-06-05 12:47] LABS: Thyroid Stimulating Hormone 1.230 uIU/mL (0.465-4.680)
== END 2025-06-04 08:18 | disposition home or self-care (01) ==
LOC: ANHGOSHLAB 08:18
PROVIDERS: PCP Family Medicine; Visit Provider Family Medicine
DX: E78.5 Hyperlipidemia, unspecified (principal); I10 Essential (primary) hypertension; R73.03 Prediabetes; E66.9 Obesity, unspecified; R74.8 Abnormal levels of other serum enzymes; Z79.899 Other long term (current) drug therapy
CPT/HCPCS: 36415; 80053; 80061; 84443

== ENCOUNTER 2025-09-28 07:55 | Outpatient (CLI) | payer BC, SELFPAY ==
--- OUTSIDE RECORDS SUMMARY | 2025-09-28 08:04 | XMS_ITS | Encounter Summary ---
Author Organization [facility] Address [address] [place] [address] Care Team Providers Care Test Examiner Name Role Phone Unavailable Primary Care Provider Unavailabl e Encounter Details Date Type Department Care Team (Late st Contact Info) Description 07/22/2020 Lab Requisition [facility] Laboratory Services S [facility] [address] [place] [address] Graham Patricia MD [address] [place] [address] Encounter for screening for other [...] 07/24/2020 2:18 AM CDT [facility] [...] providers and patients using the following websites: https://www.Progeny Solar.Presdo/home/Covid-19/HCP/NAAT/fact-sheet2 https://www.Progeny Solar.Presdo/home/Covid-19/Patients/NAAT/ fact-sheet2 This test has been authorized by the FDA under an Emergency Use Authorization (EUA) for use by authorized laboratories. Due to the current public health emergency, [employer] is receiving a high volume of samples [...] about COVID-19 can be found at the [employer] website: www.Beacon [employer].Presdo/Covid19. Upper Respiratory Collection / Unknown 07/22/2020 9:30 AM CDT 07/22/2020 3:24 PM CDT Narrative [facility] - 07/24/2020 2:18 AM CDT Performing Organization Information: Site ID: [place] Name: [employer] Address: [address] [address] Director: Theodore Cobb D.O., MPH Graham Patricia MD MICROBIOLOGY - GENERAL ORDERCierra ROJAS Final Result [facility] [phone] documented in this encounter Visit Diagnoses Diagnosis Encounter for screening for other viral diseases documented in this encounter
--- OUTSIDE RECORDS SUMMARY | 2025-09-28 08:04 | XMS_ITS | Encounter Summary ---
Author Organization [facility] Address [address] [place] [address] Care Team Providers Care Level Vial Sealer Name Role Phone Unavailable Primary Care Provider Unavailabl e Encounter Details Date Type Department Care Team (Late st Contact Info) Description 07/15/2020 Lab Requisition [facility] Laboratory Services S [facility] [address] [place] [address] Graham Patricia MD [address] [place] [address] Social History Tobacco Use Types [...] 07/16/2020 4:18 PM CDT [facility] Comment: A Not Detected (negative) [...] providers and patients using the following websites: https://www.TwoFish.Tarquin Group/home/Covid-19/HCP/Quest[facility]/fact- sheet.html https://www.TwoFish.Tarquin Group/home/Covid-19/Patients/ Quest[employer]/fact-sheet.html This test has been authorized by the FDA under an Emergency Use Authorization (EUA) for use by authorized laboratories. Due to the current public health emergency, [employer] is receiving a high volume of samples [...] about COVID-19 can be found at the [employer] website: www.Meusonic.Tarquin Group/Covid19. Upper Respiratory Collection / Unknown 07/15/2020 7:00 AM CDT 07/15/2020 11:37 AM CDT Narrative [facility] - 07/16/2020 4:18 PM CDT Performing Organization Information: Site ID: [place] Name: [employer] Address: [address] [address] Director: Theodore Cobb D.O., MPH Graham Patricia MD MICROBIOLOGY - GENERAL ORDERA BOBS Final Result [facility] [phone] documented in this encounter Visit Diagnoses Not on filedocumented in this encounter
--- OUTSIDE RECORDS SUMMARY | 2025-09-28 08:04 | XMS_ITS | Encounter Summary ---
Author Organization [facility] Address [address] [place] [address] Care Team Providers Care Pickling Machine Operator Name Role Phone Unavailable Primary Care Provider Unavailabl e Encounter Details Date Type Department Care Team (Late st Contact Info) Description 10/16/2020 Lab Requisition [facility] Laboratory Services S [facility] [address] [place] [address] Graham Patricia MD [address] [place] [address] Social History Tobacco Use Types [...] (COVID-19) PCR DETECTION Routine 10/16/2020 12:00 PM CHIEF EXECUTIVE documented in this encounter Results * 2019 NOVEL CORONAVIRUS (COVID-19) PCR DETECTION (10/16/2020 12:00 PM CHIEF EXECUTIVE) COVID-19 PCR NOT DETECTED NOT DETECTED 10/18/2020 3:51 AM CHIEF EXECUTIVE [facility] Comment: A Not Detected (negative) [...] providers and patients using the following websites: https://www.Sofa Labs.Teads/home/Covid-19/HCP/NAAT/fact-sheet2 https://www.Sofa Labs.Teads/home/Covid-19/Patients/NAAT/ fact-sheet2 This test has been authorized by the FDA under an Emergency Use Authorization (EUA) for use by authorized laboratories. Due to the current public health emergency, [employer] is receiving a high volume of samples [...] about COVID-19 can be found at the [employer] website: www.Ooolala/Covid19. Upper Respiratory Collection / Unknown 10/16/2020 12:00 PM CHIEF EXECUTIVE 10/16/2020 9:57 PM CHIEF EXECUTIVE Narrative [facility] - 10/18/2020 3:51 AM CHIEF EXECUTIVE Performing Organization Information: Site ID: [place] Name: [facility] Address: [address] [address] Director: Theodore Cobb D.O., MPH Graham Patricia MD MICROBIOLOGY - GENERAL ORDERA BLES Final Result [facility] [phone] documented in this encounter Visit Diagnoses Not on filedocumented in this encounter
--- OUTSIDE RECORDS SUMMARY | 2025-09-28 08:04 | XMS_ITS | Encounter Summary ---
Author Organization [facility] Address [address] [place] [address] Care Team Providers Care Pattern Hand Name Role Phone Unavailable Primary Care Provider Unavailabl e Encounter Details Date Type Department Care Team (Late st Contact Info) Description 07/08/2020 Lab Requisition [facility] Laboratory Services S [facility] [address] [place] [address] Graham Patricia MD [address] [place] [address] Encounter for screening for other [...] 07/10/2020 2:49 AM CDT [facility] [...] providers and patients using the following websites: https://www.Qubit.OrangeScape/home/Covid-19/HCP/NAAT/fact-sheet2 https://www.Qubit.OrangeScape/home/Covid-19/Patients/NAAT/ fact-sheet2 This test has been authorized by the FDA under an Emergency Use Authorization (EUA) for use by authorized laboratories. Due to the current public health emergency, [employer] is receiving a high volume of samples [...] about COVID-19 can be found at the [employer] website: www.Mamapedia.OrangeScape/Covid19. Upper Respiratory Collection / Unknown 07/08/2020 3:00 PM CDT 07/08/2020 6:48 PM CDT Narrative [facility] - 07/10/2020 2:49 AM CDT Performing Organization Information: Site ID: [place] Name: [facility] Address: [address] [address] Director: Theodore Cobb D.O., MPH Graham Patricia MD MICROBIOLOGY - GENERAL [facility]CO[facility] Final Result [facility] [phone] documented in this encounter Visit Diagnoses Diagnosis Encounter for screening for other viral diseases documented in this encounter
--- OUTSIDE RECORDS SUMMARY | 2025-09-28 08:04 | XMS_ITS | Encounter Summary ---
Author Organization [facility] Address [address] [place] [address] Care Team Providers Care User Experience Researcher Name Role Phone Unavailable Primary Care Provider Unavailabl e Encounter Details Date Type Department Care Team (Late st Contact Info) Description 12/15/2020 Lab Requisition [facility] Laboratory Services S [facility] [address] [place] [address] [place] [address] [place] [address] Encounter for general adult medical [...] (COVID-19) PCR DETECTION Routine 12/13/2020 9:37 AM DIRECTOR OF INFECTION CONTROL Encounter for general adult medical examination without abnormal findings documented in this encounter Results * 2019 NOVEL CORONAVIRUS (COVID-19) PCR DETECTION (12/13/2020 9:37 AM DIRECTOR OF INFECTION CONTROL) COVID-19 PCR NOT DETECTED Not Detected 12/16/19 12:45 AM DIRECTOR OF INFECTION CONTROL [facility] PERFORMING LAB [facility] 12/16/2020 12:45 AM DIRECTOR OF INFECTION CONTROL [facility] Upper Respiratory Collection / Unknown 12/13/2020 9:37 AM DIRECTOR OF INFECTION CONTROL 12/15/2020 5:28 PM DIRECTOR OF INFECTION CONTROL [facility] - 12/16/2020 12:45 AM DIRECTOR OF INFECTION CONTROL This test has been authorized by the [...] MICROBIOLOGY - GENERAL ORDER BELEN Final Result [facility]# [id number] [address] [place] [address] documented in this encounter Visit Diagnoses Diagnosis Encounter for general adult medical examination without abnormal findings Routine general medical examination at a health care facility documented in this encounter
--- OUTSIDE RECORDS SUMMARY | 2025-09-28 08:04 | XMS_ITS | Encounter Summary ---
Author Organization [facility] Address [address] [place] [address] Care Team Providers Care Imaging Aide Name Role Phone Unavailable Primary Care Provider Unavailabl e Encounter Details Date Type Department Care Team (Late st Contact Info) Description 10/21/2020 Lab Requisition [facility] Laboratory Services S [facility] [address] [place] [place] [address] Graham Patricia MD [address] [place] [address] Social History Tobacco Use Types [...] (COVID-19) PCR DETECTION Routine 10/21/2020 10:29 AM COLLATOR OPERATOR documented in this encounter Results * 2019 NOVEL CORONAVIRUS (COVID-19) PCR DETECTION (10/21/2020 10:29 AM COLLATOR OPERATOR) COVID-19 PCR NOT DETECTED Not Detected 10/22/20 20 4:05 AM COLLATOR OPERATOR [facility] PERFORMING LAB [facility] 10/22/2020 4:05 AM COLLATOR OPERATOR [facility] Upper Respiratory Collection / Unknown 10/21/2020 10:29 AM COLLATOR OPERATOR 10/21/2020 10:47 PM COLLATOR OPERATOR Narrative [facility] - 10/22/2020 4:05 AM COLLATOR OPERATOR This test has been authorized by [...] Graham Patricia MD MICROBIOLOGY - GENERAL ORDERA [facility] Final Result [facility] SERVICES [facility]# [id number] [address] [place] [address] documented in this encounter Visit Diagnoses Not on filedocumented in this encounter
--- OUTSIDE RECORDS SUMMARY | 2025-09-28 08:04 | XMS_ITS | Encounter Summary ---
Author Organization [facility] Address [address] [place] [address] Care Team Providers Care Airport Operations Manager Name Role Phone Unavailable Primary Care Provider Unavailabl e Encounter Details Date Type Department Care Team (Late st Contact Info) Description 06/18/2020 Lab Requisition [facility] Laboratory Services S [facility] [address] [place] [address] Graham Patricia MD [address] [place] [address] Social History Tobacco Use Types [...] 06/20/2020 3:22 AM CDT [facility] [...] providers and patients using the following websites: https://www.popchips.Intertwine/home/Covid-19/HCP/NAAT/fact-sheet2 https://www.popchips.Intertwine/home/Covid-19/Patients/NAAT/ fact-sheet2 This test has been authorized by the FDA under an Emergency Use Authorization (EUA) for use by authorized laboratories. Due to the current public health emergency, [employer] is receiving a high volume of samples [...] about COVID-19 can be found at the [employer] website: www.Catacomb Technologies/Covid19. Upper Respiratory Collection / Unknown 06/18/2020 8:50 AM CDT 06/18/2020 3:21 PM CDT Narrative [facility] - 06/20/2020 3:22 AM CDT Performing Organization Information: Site ID: [place] Name: [facility] [employer] Address: [address] [address] Director: Theodore Cobb D.O., MPH Graham Patricia MD MICROBIOLOGY - GENERAL ORDERA BLE Final Result [facility] [phone] documented in this encounter Visit Diagnoses Not on filedocumented in this encounter
--- OUTSIDE RECORDS SUMMARY | 2025-09-28 08:04 | XMS_ITS | Clinical Summary ---
Author Organization [facility] Address [address] [place] [address] Phone Care Team Providers Care Senior Planning Analyst Name Role Phone Unavailable Primary Care Provider [...]
--- OUTSIDE RECORDS SUMMARY | 2025-09-28 08:04 | XMS_ITS | Clinical Summary ---
Author Organization [facility] Address [address] [place] [address] Care Team Providers Care Clinical Academic Allergist Name Role Phone Unavailable Primary Care Provider Unavailabl e Source Comments [facility],non-owned Affiliates and Associated Physician Practices is amultiple site organization consisting of ambulatory clinics and hospital sitesin [place], [place], [place] and [place]. This disclosure is being madepursuant to the Care Everywhere program and may not contain all information available regarding this patient. Last updated 18.[facility] Allergies No known active allergies Medications * [...] Sex Assigned at Female 09/30/2020 2:47 PM DEPARTMENT STORE MANAGER Legal Sex Female 10:28 AM CDT Gender Identity Female 09/30/2020 2:46 PM DEPARTMENT STORE MANAGER Sexual Orientation Straight 09/30/2020 2: 47 PM DEPARTMENT STORE MANAGER Occupation Industry Job Start Date Job End Date RN Not on file Not on file Not on file Last Filed Vital Signs Vital Sign Reading Time Taken Comments Blood Pressure 144/86 11/24/2024 7:42 AM DEPARTMENT STORE MANAGER Pulse 85 11/24/2024 7:42 AM DEPARTMENT STORE MANAGER Temperature 36.4 C (97.5 F) 04/13/2023 12:05 PM CDT Respiratory Rate 17 04/13/2023 12:2 0 PM CDT Oxygen Saturation 77% 04/13/2023 12: 20 PM CDT Inhaled Oxygen Concentration - - Weight 84.3 kg (185 lb 12.8 oz) 11/24/2024 7:42 AM DEPARTMENT STORE MANAGER Height 160 cm (5' 3) 11/24/2024 7:42 AM DEPARTMENT STORE MANAGER Body Mass Index 32.91 11/24/2024 7:42 AM DEPARTMENT STORE MANAGER Plan of Treatment Upcoming Encounters Date Type Department Care Team (Late st Contact Info) Description 10/08/2025 7:40 AM DEPARTMENT STORE MANAGER Appointment [facility] [place] [phone] Health Maintenance Due Date Last Done Comments COLOGUARD (AGES 45-75) - COLON CA SCREENING 1970 CT COLONOGRAPHY - COLON CA SCREENING 1970 FIT - COLON CA SCREENING 1970 FLEX SIG - COLON CA SCREENING 1970 HEPATITIS B VACCINE (1 of 3 - 19+ 3-dose series) 1990 PNEUMOCOCCAL VACCINE 50+ (1 of 1 - PCV) 2021 ZOSTER VACCINE (2 of 2) 03/09/2022 01/12/2022 DEPRESSION SCREENING 11/22/2024 04/20/2024, 11/12/2023, 01/12/2022 SCREENING FOR DIABETES 04/11/2025 2, 02/19/2022, 01/12/2022, Additional history exists COVID-19 VACCINE ( season) 2025 09/26/2021, 01/24/2021, 12/27/2020 INFLUENZA VACCINE (#1) 2025 2, 08/22/2021, 08/22/2020, Additional history exists PAP with [...] W LDL/HDL RATIO Routine 11/12/2023 8:14 AM DEPARTMENT STORE MANAGER Well woman exam with routine gynecological exam Hormone replacement therapy (HRT) ENDOSCOPY, COLON, SCREENING Routine 04/13/2023 10:42 AM CDT HEPATITIS SCREEN ACUTE Routine 11/27/2022 7:28 AM DEPARTMENT STORE MANAGER Screening for venereal disease HIV-1 HIV-2 ANTIBODY + HIV P24 AG PANEL Routine 11/27/2022 7:28 AM DEPARTMENT STORE MANAGER Screening for venereal disease HEMOGLOBIN A1C Routine [...] been no significant interval change. Monae Dozier APRN-IRONWORKER MAMMO ORDERABLES Final Re sult * (ABNORMAL) LIPID PROFILE W LDL/HDL RATIO (11/12/2023 8:14 AM DEPARTMENT STORE MANAGER) Cholesterol 182 100 - 199 mg/dL [facility] [...] BLOOD SPECIMEN / Unknown 11/12/2023 8:14 AM DEPARTMENT STORE MANAGER 11/12/2023 Narrative Resulting Agency Comment [facility] [address] [id number] Monae Dozier APRN-IRONWORKER LAB - CHEMISTRY ORDERABLE S Final Result [facility] ACCOUNT [place] [id number] [place] [address] * ENDOSCOPY, COLON, SCREENING (04/13/2023 10:42 AM CDT) Report Endoscopy POC _ Patient Name: Tasha Leary Procedure Date: 04/13/2023 10:42 AM Date of : 1970 Admit Type: Outpatient Age: 52 Gender: Female Attending MD: Marlene Flores MD, [id number] _ Procedure: Colonoscopy Indications: High risk colon [...] bowel preparation was evaluated using the BBPS ([place] Bowel Preparation Scale) with scores of: Right [...] for surveillance. Procedure Code(s): --- Professional --- 62551, Colonoscopy, flexible; with biopsy, single or multiple --- Technical --- 98185, Colonoscopy, flexible; with biopsy, single or multiple [...] or abscess without bleeding CPT copyright 2020 [employer]. All rights reserved. The codes documented in this report are preliminary and upon hog dropper review may be revised to meet current compliance requirements. _ Marlene Flores MD 04/13/2023 12:07:15 PM Number of Addenda: 0 Note Initiated On: 04/13/2023 10:42 AM [facility] ENDOSCOPY 04/13/2023 10:4 2 AM CDT Marlene Flores MD GI PROCEDURE ORDERABLES Edite d Result - Final [facility] [place] [address] * HIV-1 HIV-2 ANTIBODY + HIV P24 AG PANEL (11/27/2022 7:28 AM DEPARTMENT STORE MANAGER) HIV Screen 4th Generation w Reflex NON-REACT [...] purpose. For additional information please refer to http://Stayful.Woodland Biofuels/faq/IRX524 (This link is being provided for informational/ educational purposes only.) The performance of this assay has not been clinically validated in patients less than 2 years old. Test Performed at: [email or web address] [address] [place] [address] HORACE OLSEN DO,MPH Blood BLOOD SPECIMEN / Unknown 11/27/2022 7:28 AM DEPARTMENT STORE MANAGER 11/27/2022 7:29 AM DEPARTMENT STORE MANAGER Monae Dozier ENTRY SPECIALIST-IRONWORKER LAB - CHEMISTRY ORDERABLE S Final Result Performing Organization Address City/State/[facility] Co de Phone Number [facility] [address] [place] [address] * HEPATITIS SCREEN ACUTE (11/27/2022 7:28 AM DEPARTMENT STORE MANAGER) Hepatitis A Virus Antibody IgM NON-REACTI VE NON-REACT [facility] Comment: For additional information, please refer to http://Stayful.Woodland [employer]/faq/KPE906 (This link is being provided for informational/ [...] a test for HCV RNA (test code 89925) is suggested. For additional information please refer to http://Stayful.Woodland [employer]/faq/OWE55d7 (This link is being provided for informational/ educational purposes only.) Test Performed at: [email or web address] [address] [place] [address] HORACE OLSEN DO,MPH Blood BLOOD SPECIMEN / Unknown 11/27/2022 7:28 AM DEPARTMENT STORE MANAGER 11/27/2022 7:29 AM DEPARTMENT STORE MANAGER Monae Dozier ERNIE-IRONWORKER LAB - CHEMISTRY ORDERABLE S Final Result Performing Organization Address [facility] Co de Phone Number [address] [address] * (ABNORMAL) HEMOGLOBIN A1C (04/11/2022 11:50 AM [...] children. REPORT COMMENT: FASTING:NO Test Performed at: [facility] [address] MADINA JULIAN MD Blood BLOOD SPECIMEN / Unknown 04/11/2022 11:50 AM CDT 04/11/2022 11:51 AM CDT Delores Bell MD LAB - CHEMISTRY ORDER BELEN Final Result Performing Organization Address [facility] Co de Phone Number [address] [address] * PAP IG LB+CT+NG+TV+HPV APTIMA RFLX [birth year] [...] Resulting Agency Comment Lab Testing performed at: [address] [id number] Bessie Marin MD LAB - PATHOLOGY/CYTOLOGY ORDER BELEN Final Result [facility] ACCOUNT BILL [address] [place] [address] from Last 3 Months or Most Recently Relevant to Health Maintenance Insurance [facility]
--- OUTSIDE RECORDS SUMMARY | 2025-09-28 08:04 | XMS_ITS | Encounter Summary ---
Author Organization [facility] Address [address] [place] [address] Care Team Providers Care Student Accounts Coordinator Name Role Phone Unavailable Primary Care Provider Unavailabl e Encounter Details Date Type Department Care Team (Late st Contact Info) Description 06/10/2020 Lab Requisition [facility] Laboratory Services S [facility] [address] [place] [address] Graham Patricia MD [address] [place] [address] Encounter for screening for other [...] 06/12/2020 5:12 AM CDT [facility] Comment: A Not Detected (negative) [...] providers and patients using the following websites: https://www.Carritus.Redfin Network/home/Covid-19/HCP/NAAT/fact-sheet2 https://www.Carritus.Redfin Network/home/Covid-19/Patients/NAAT/ fact-sheet2 This test has been authorized by the FDA under an Emergency Use Authorization (EUA) for use by authorized laboratories. Due to the current public health emergency, [facility] is receiving a high volume of samples [...] about COVID-19 can be found at the [employer] website: www.digedu.Redfin Network/Covid19. Upper Respiratory Collection / Unknown 06/10/2020 12:00 PM CDT 06/10/2020 4:20 PM CDT Narrative [facility] - 06/12/2020 5:12 AM CDT Performing Organization Information: Site ID: [place] Name: [facility] Address: [address] [address] Director: Theodore Cobb D.O., MPH Graham Patricia MD [facility] Final Result [facility] [phone] documented in this encounter Visit Diagnoses Diagnosis Encounter for screening for other viral diseases documented in this encounter
--- OUTSIDE RECORDS SUMMARY | 2025-09-28 08:04 | XMS_ITS | Encounter Summary ---
Author Organization [facility] Address [address] [place] [address] Care Team Providers Care Explosive Expert Name Role Phone Unavailable Primary Care Provider Unavailabl e Encounter Details Date Type Department Care Team (Late st Contact Info) Description 07/01/2020 Lab Requisition [facility] Laboratory Services S [facility] [address] [place] [address] [place] [address] Graham Patricia MD [address] [place] [address] Encounter for screening for other [...] 07/03/2020 3:20 AM CDT [facility] Comment: A Not Detected (negative) test result [...] providers and patients using the following websites: https://www.OncoTree DTS.PageUp People/home/Covid-19/HCP/NAAT/fact-sheet2 https://www.OncoTree DTS.Page[employer] People/home/Covid-19/Patients/NAAT/ fact-sheet2 This test has been authorized by the FDA under an Emergency Use Authorization (EUA) for use by authorized laboratories. Due to the current public health emergency, [employer] is receiving a high volume of samples [...] about COVID-19 can be found at the [employer] website: www.Vega-Chi.PageUp People/Covid19. Upper Respiratory Collection / Unknown 07/01/2020 3:40 PM CDT 07/01/2020 6:07 PM CDT Narrative [facility] - 07/03/2020 3:20 AM CDT Performing Organization Information: Site ID: [place] Name: [facility] Address: [address] [address] Director: Theodore Cobb D.O., MPH Graham Patricia MD [facility] Final Result [facility] [phone] documented in this encounter Visit Diagnoses Diagnosis Encounter for screening for other viral diseases documented in this encounter
--- OUTSIDE RECORDS SUMMARY | 2025-09-28 08:04 | XMS_ITS | Data Portability ---
Author Organization [place] [facility] [employer], Main Office Address [address] [place] [address] Care Team Providers Care Solid Plasterer Name Role Phone LUIS M FORBES Primary Care Provider Assessment No assessment recorded. Plan of Treatment Reminders Order Date Submit Date Provider Last Modified By Organization Details Last Modified Time Details Appointments None recorded. Lab None recorded. Referral None recorded. Procedures None recorded. Surgeries None recorded. Imaging None recorded. Medication Orders amlodipine 5 mg tablet 2022 023 [facility] [address], [place], [address], 11:15:28 Patient TargetsNo targets recorded. Patient Instructions Encounter Date Encounter Id Patient Instructions Last Modified By Organization Details Last Modified Time 07/01/2023 [id number] which she will undergo balloon assisted septoplasty Not available 07/01/2023 15:52:48 08/26/2023 [id number] she will return as needed Not available 08/26/2023 15:39:33 Reason for Referral None Reported. Results Created Date Observation Date Name Description Value Unit Range Abnormal Flag Note LastModifiedBy Organization Detail LastModifiedTime 06/10/[address], maxil lofac ial, w/o contr ast [facility] [address], [place] [address] Patien t Name: SHEA MORALES Access ion #: [id number] Sex: F : 1970 1 Locati [...] FINDIN GS: Page 1 of 2 [facility] t Name: SHEA MORALES Access ion #: [id number] Sex: F : 1970 1 Exam [...] Dental cavity involv ing the left maxill henrando 3rd molar tooth. Recomm end dental consul tation . Create d and electr onical ly signed by: Inderjit parmar MD Signed Date: 3:35 PM (CT) Dictat ed by: Inderjit parmar MD DD: 3:35 PM (CT) DT: 3:35 PM (CT) Page 2 of 2 [email or web address] [facility] (Imaging) [address] [place], [address], 06/14/2023 10:04:49 06/10/[address], sinus es, w/o contr ast No observ ation record ed. [email or web address] [address] [place], [address], 06/14/2023 10:05:33 06/16/[address], sinus es, w/o contr ast No observ ation record ed. [email or web address] [facility] [address] [place] [address] , [place], [address], 06/17/2023 14:25:40 08/17/20 23 08/17/2023 elect gilma lopezgr am No observ ation record ed. [email or web address] Not Available 2022 12:17:07 Result Notes Documentation Provider Name and Address Organization Details Recorded Time Ct, Maxillofacial, W/o Contrast : [facility] [address] [place] [address] Patient Name: TASHA MORALES Sex: F : 1970 Location: [facility] Attending Physician: TOI WOODS Ordering Physician: [...] reconstruction technique. FINDINGS: Page 1 of 2 [facility] Patient Name: TASHA MORALES Sex: F [...] Page 2 of 2 Ashley Marcus RN [facility], [place] - [facility] Campaign [employer] [facility] 06/14/2023 10:04:49 Problems Name Problem SNOMED Code Status Onset Date Resolution Date Notes Provider Name and Address Organization Details Recorded Time Family history of diabetes mellitus 435471502 Active 2022 Not Available [facility] 3 08:05:43 History of polyp of colon 683505040 Active 2022 Not Available [facility] 3 08:05:43 Essential hypertension 75571366 Active 2022 Not Available [facility] 3 08:05:43 Acne 85274258 Active 2022 Not Available [facility] 3 08:05:43 Chronic sinusitis 29579290 Active 2022 Not Available [facility] 3 08:05:43 Deviated nasal septum 391223345 Active 2022 Not Available [facility] 3 08:05:43 Problem Notes None recorded. Procedures Surgical History Date Name Laterality Status Provider Name and Address Organization Details Recorded Time Partial hysterectomy completed Not Available [facility] 01/20/2023 10:41:20 Breast reduction completed Not Available [facility] 01/20/2023 10:41:20 colonoscopy completed Not Available [facility] 01/20/2023 10:41:20 tonsillectomy completed Ashley Marcus RN [facility] 05/27/2023 15:56:31 nasal septoplasty completed Ashley Marcus RN [facility] 08/24/2023 11:33:58 Imaging Results None [...] % 99 % 99 /min 98 [degF] 24013.5 5 g 120/67 mm[Hg] Not Available [facility] 3 10:41:43 Date Recorded Body weight Body mass index (BMI) Body height Body temperature Heart rate Oxygen saturation Oxygen saturation in Arterial blood by Pulse oximetry Systolic And Diastolic Provider Name and Address Organization Details Last Updated DateTime 3 40025.6 3 g 30.9 kg/m2 162.56 cm 97.4 [degF] 81 /min 99 % 99 % 132/84 mm[Hg] Tracy Russo RN [facility] [employer] 3 10:47:38 Date Recorded Body height Body mass index (BMI) Body weight Body temperature Provider Name and Address Organization Details Last Updated DateTime 05/27/2023 162.56 cm 31.7 kg/m2 18094.43 g 97.7 [degF] Ashley Marcus RN [facility] [employer] 05/27/2023 15:55:37 Date Recorded Body height Body mass index (BMI) Body weight Body temperature Provider Name and Address Organization Details Last Updated DateTime 07/01/2023 162.56 cm 31.9 kg/m2 07217.18 g 97.8 [degF] Ashley Marcus RN [facility] [employer] 07/01/2023 15:39:38 Date Recorded Body height Body mass index (BMI) Body weight Provider Name and Address Organization Details Last Updated DateTime 08/26/2023 162.56 cm 30.6 kg/m2 13018.44 g Varsha Slaughter [facility] [employer] 08/26/2023 15:20:49 Social History Question Answer Notes LastModified by [employer] Details LastModified Time Tobacco Smoking Status Never Smoker MIRNA Macedo, [employer] 08/26/2023 15:11:40 What Is Your Level Of Caffeine Consumption? Occasional Information not available 03/23/2023 Do You Use Your Seat Belt Or Car Seat Routinely? Yes Information not available 08/26/2023 Do You Participate In Social [employer]? Yes Information not available 08/26/2023 Sex: Unknown Functional Status Question Answer Note LastModified by [employer] Details LastModified Time Do you use any illicit or recreational drugs? No Information not available 08/26/2023 What is your level of alcohol consumption? Occasional Information not available 03/23/2023 Mental Status Question Answer Note LastModified by Organization D etails LastModified Time Do you feel stressed (tense, restless, nervous, or anxious, or unable to sleep at night)? [id number] Information not available 08/26/2023 Family History Relationship Description Onset Age of this Age Resolved Age Notes LastModified by Organization Details LastModified Time Mother Diabetes mellitus [id number] Not available 01/20/2023 10:41:21 Maternal Grandmother Diabetes mellitus [id number] Not available 01/20/2023 10:41:21 Maternal Grandmother Essential [...] Diagnosis SNOMED-CT Code Diagnosis ICD10 Code Diagnosis IMO Codes Diagnosis Note [id number] Key Fontana MD [facility] Primary Care [place] [address] [facility] [address] [place] [id number] 12/11/2022 00:00:00 12/11/2022 17:59:33 [id number] Key Fontana MD [facility] Primary Care [place] turn[address] [place] [address] 03/23/2023 10:41:10 03/23/2023 11:17:56 Essential hypertension 42714608 I10 Stable with current regimen.As ymptomatic at this timeEncour aged pt to increase water intake, reduce caffeine intake, exercise regularly, decrease/e liminate sodium intake, work on weight loss and stress reductionW ill continue to monitor closelyNor vasc 5mg dailyHctz 12.5mg daily (on hold while taking spironolac tone) Acne 04986319 L70.9 Improving per patient, with spironolac tone (prescribe d by derm).Cont inue with hypoallerg enic face soap and lotion and products for face with gentle exfoliatio n but careful not to over wash/scrub . Hypoallerg enic products, dietary precaution s reviewed. Do not pick at lesions. Discussed some remaining acne normal, even with tx. [id number] Toi Woods MD [facility] ENT [place] [address] [place] [address] 05/27/2023 15:38:04 06/14/2023 12:16:30 Deviated nasal septum 818305091 J34.2 Chronic sinusitis 601562 00 J32.9 [id number] Toi Woods MD [facility] ENT [place] [address] [place] [address] 07/01/2023 15:22:32 07/01/2023 15:54:13 Deviated nasal septum 489557397 J34.2 Chronic sinusitis 581787 00 J32.9 [id number] Toi Woods MD [facility] [place] [address] [place] [address] 08/26/2023 15:10:03 08/26/2023 15:41:27 Deviated nasal septum 617056932 J34.2 Health Concerns Section Related Observation LastModified by Organization Detai ls LastModified Time None Recorded Concern Status LastModified by Organization Details LastModified Time None Recorded Advance Directives Directive None Recorded Payers Insurance Date Sequence Insurance Name Policy Number Policy Dasilva Covered Member ID Dasilva Member ID Guarantor Name 08/26/2023 1 [facility] ([facility] [id number] Tashacarter Morales [id number] Tasha Morales Notes Date Note Type Note Provider Name and Address Organization Details Recorded Time 03/23/2023 text/html 03/23/23: 1. Pt in office for 4 month f/u appt. Pt denies any new medical concerns at this time. 12/11/22: 1. Pt in office to establish care. Was previously seeing Dr. Bell at [facility].2. Pt states she takes norvasc and hctz for htn, but the hctz is on hold while her acne is being tx'd with spironolactone by derm.3. Pt states she had partial hyst 3yrs ago (2019) d/t fibroids.4. Pt states she had breast reduction in 2020 as well. Luis M Forbes, [employer] [address], [place], [address], [employer] 03/23/2023 18:28:52 05/27/2023 text/html this patient has a year's history of sinusitis and has been on antibiotics for this in the past she does have facial pain and headaches she takes many aioh-kiz-wmiduxy medications thinks that some of it may be worse during spring and fall. Toi Woods MD [address], [place], [address], [employer] 05/27/2023 16:11:35 07/01/2023 text/html the CT scan demonstrates right septal deviation which was known. Otherwise there was a small maxillary sinus cyst which does not require intervention Toi Woods MD [address], [place], [address], [employer] 07/01/2023 15:53:08 08/26/2023 text/html Patient is doing very well following septoplasty Toi Woods MD [address], [place], [address], [employer] 08/26/2023 15:39:52 OBGyn Episode No OBEpisode recorded.
--- OUTSIDE RECORDS SUMMARY | 2025-09-28 08:04 | XMS_ITS | Encounter Summary ---
Author Organization [facility] Address [address] [place] [address] Care Team Providers Care Rug Inspector Name Role Phone Unavailable Primary Care Provider Unavailabl e Encounter Details Date Type Department Care Team (Late st Contact Info) Description 10/15/2020 Lab Requisition [facility] Laboratory Services S [facility] [address] [place] [address] Graham Patricia MD [address] [place] [address] Encounter for screening for other [...] (COVID-19) PCR DETECTION Routine 10/15/2020 6:42 PM [facility]AR[facility] ADMINISTRATOR Encounter for screening for other viral diseases documented in this encounter Results * 2019 NOVEL CORONAVIRUS (COVID-19) PCR DETECTION (10/15/2020 6:42 PM SOLARIS ADMINISTRATOR) COVID-19 PCR NOT DETECTED Not Detected 10/16/20 20 1:49 AM SOLARIS ADMINISTRATOR [facility] PER[facility] 10/16/2020 1:49 AM SOLARIS ADMINISTRATOR [facility] Upper Respiratory Collection / Unknown 10/15/2020 6:42 PM SOLARIS ADMINISTRATOR 10/15/2020 6:42 PM SOLARIS ADMINISTRATOR Narrative [facility] - 10/16/2020 1:49 AM SOLARIS ADMINISTRATOR This test has been authorized by the [...] MICROBIOLOGY - GENERAL ORDERA BLES Final Result [facility]# [id number] [address] [place] [address] documented in this encounter Visit Diagnoses Diagnosis Encounter for screening for other viral diseases documented in this encounter
--- OUTSIDE RECORDS SUMMARY | 2025-09-28 08:04 | XMS_ITS | Encounter Summary ---
Author Organization [facility] Address [address] [place] [address] Care Team Providers Care Bank Advisor Name Role Phone Unavailable Primary Care Provider Unavailabl e Encounter Details Date Type Department Care Team (Late st Contact Info) Description 06/25/2020 Lab Requisition [facility] Laboratory Services S [facility] [address] [place] [address] [place] [address] Graham Patricia MD [address] [place] [address] Social History Tobacco Use Types [...] 06/27/2020 5:50 AM CDT [facility] Comment: [...] providers and patients using the following websites: https://www.[employer].Tenantry Network/home/Covid-19/HCP/NAAT/fact-sheet2 https://www.[employer].Tenantry Network/home/Covid-19/Patients/NAAT/ fact-sheet2 This test has been authorized by the FDA under an Emergency Use Authorization (EUA) for use by authorized laboratories. Due to the current public health emergency, [employer] is receiving a high volume of samples [...] about COVID-19 can be found at the [employer] website: www.ConnectToHome/Covid19. Upper Respiratory Collection / Unknown 06/24/2020 2:30 PM CDT 06/25/2020 1:06 PM CDT Narrative [facility] - 06/27/2020 5:50 AM CDT Performing Organization Information: Site ID: [place] Name: [employer] Address: [address] [address] Director: Theodore Cobb D.O., MPH Graham Patricia MD MICROBIOLOGY - GENERAL ORDERA BLE Final Result [facility] [phone] documented in this encounter Visit Diagnoses Not on filedocumented in this encounter
[2025-09-28 12:56] LABS: Hematocrit 37.1 % (37.0-47.0); Hemoglobin 12.2 g/dL (12.0-15.0); Mean Corpuscular HGB Conc 32.9 g/dl (32-36); Mean Corpuscular Hemoglobin 26.9 pg (26-34); Mean Corpuscular Volume 81.7 fl (80-100); Platelet Count Result 265 k/mm3 (150-375); Red Blood Count 4.54 M/mm3 (4.2-5.4); White Blood Count 7.5 K/mm3 (4.5-10.0)
[2025-09-28 13:04] LABS: Alanine Aminotransferase 18 U/L (6-35); Albumin Level 4.2 g/dL (3.5-5.1); Alkaline Phosphatase 55 U/L (38-126); Anion Gap 7 mmol/L (4-12); Aspartate Amino Transferase 47 U/L (14-36); Bilirubin,Total 0.6 mg/dL (0.2-1.3); Blood Urea Nitrogen 8 mg/dL (7-17); Calcium 9.0 mg/dL (8.4-10.2); Carbon Dioxide 24 mmol/L (22-30); Chloride 104 mmol/L (98-107); Estimated Glomerular Filt Rate > 60; Glucose 98 mg/dL (65-110); Potassium 3.9 mmol/L (3.4-5.0); Sodium 135 mmol/L (137-145); Total Protein 7.7 g/dL (6.3-8.2)
[2025-09-28 13:38] LABS: Hepatitis B Surface Antigen Negative (Negative)
[2025-09-28 13:43] LABS: HAV RESULT Negative (Negative); Hepatitis B Core IgM Result Negative (Negative)
[2025-09-28 13:55] LABS: Hemoglobin A1C 5.9 % (<5.7)
== END 2025-09-28 07:56 | disposition home or self-care (01) ==
LOC: ANHGOSHLAB 07:56
PROVIDERS: PCP Family Medicine; Visit Provider Family Medicine
DX: E78.5 Hyperlipidemia, unspecified (principal); I10 Essential (primary) hypertension; R73.03 Prediabetes; E66.9 Obesity, unspecified; R74.8 Abnormal levels of other serum enzymes; Z79.899 Other long term (current) drug therapy
CPT/HCPCS: 36415; 80053; 80074; 82248; 83036; 85027

== ENCOUNTER 2025-10-29 08:01 | Outpatient (CLI) | payer BC, SELFPAY ==
--- NOTE | ~2025-10-29 | CT_ITS ---
EXAMINATION: CT sinus wo con COMPARISON: None HISTORY: Chronic sinusitis TECHNIQUE: Axial images were obtained without IV contrast. Sagittal, coronal reconstruction images were obtained from the axial views. CT scan performed using dose optimization techniques including the following automated exposure control; adjustment of mA and/or kV; use of iterative reconstruction technique. Automatic exposure control was used to reduce radiation dose. Permanent radiation dose record is archived to PACS. FINDINGS: Visualized brain parenchyma and orbits appear unremarkable. Soft tissues are unremarkable. The frontal sinuses are unremarkable. Minimal mucosal thickening in the ethmoidal air cells and the maxillary sinuses. The ostiomeatal complexes are patent. The nasal septum is posteriorly deviated to the left. There is mild thickening of the turbinates and mild narrowing of the left nasal cavity. The sphenoid sinuses are unremarkable. No osseous destruction or wall thickening is identified. IMPRESSION: Minimal sinusitis Reviewed, dictated and finalized at location P. USION TEACHER IMPRESSION: Minimal sinusitis
== END 2025-10-29 08:02 | disposition home or self-care (01) ==
LOC: MICIMG 08:01
PROVIDERS: PCP Family Medicine; Visit Provider Otolaryngology
DX: J32.9 Chronic sinusitis, unspecified (principal); J34.89 Other specified disorders of nose and nasal sinuses
CPT/HCPCS: 70486